=== PATIENT | male | born 1985 | race Caucasian/White ===

== ENCOUNTER 2018-03-03 18:06 | Emergency (ER) | payer SELFPAY ==
[2018-03-03 19:24] LABS: Absolute Lymphocytes (CBC) 2.2 K/uL (0.7-4.9); Absolute Monocytes 0.5 K/uL (0.1-1.3); Absolute Neutrophil 7.3 K/uL (1.8-8.0); Basophils % 0.6 % (0-1.3); Eosinophils % 3.5 % (0-4.4); Hematocrit 47.5 % (39.6-49.0); Lymphocytes % 20.7 % (15.3-44.8); MCV 84.1 fL (80-100); MPV 8.8 fL (7.6-11.3); Monocytes % 4.6 % (3.3-12.3); RBC Red Blood Cell Count 5.65 M/uL (4.33-5.43)
[2018-03-03 19:34] LABS: Albumin 4.1 g/dL (3.4-5.0); Bilirubin Total 0.5 mg/dL (0.2-1.0); Potassium 3.9 mmol/L (3.5-5.1); Protein, Total 8.3 g/dL (6.4-8.2)
[2018-03-03] MEDS ORDERED: KETOROLAC 30 MG/ML INJ ONE ×2 (19:48→21:15)
[2018-03-03] MEDS ORDERED: TRAMADOL HCL 50 MG TAB ONE (19:51)
--- NOTE | 2018-03-03 20:26 | RAD REPORT ---
EXAM DESCRIPTION: CT - Head Brain Wo Cont - 03/03/2018 8:16 pm CLINICAL HISTORY: DIZZINESS Headache COMPARISON: Facial Bones W Con Mpr dated 03/03/2018; HEAD BRAIN W O CONTRAST dated 03/21/2008 TECHNIQUE: All CT scans are performed using dose optimization technique as appropriate and may inclu de automated exposure control or mA/KV adjustment according to patient size. FINDINGS: No intracranial hemorrhage, hydrocephalus or extra-axial fluid collection.No areas of brai n edema or evidence of midline shift. Fluid is present in the right mastoid air cell the paranasal sinuses mastoids are otherwise clear. Th e calvarium is intact. IMPRESSION: No acute intracranial abnormality. Right mastoid effusion.
--- NOTE | 2018-03-03 20:31 | RAD REPORT ---
EXAM DESCRIPTION: CT - CTFBWCON CLINICAL HISTORY: right sided jaw swelling COMPARISON: HEAD BRAIN W O CONTRAST dated 03/21/2008; HEAD BRAIN W O CONTRAST dated 12/29/2003 TECHNIQUE: Axial 2 mm thick images of the face with contrast were obtained with sagittal and coronal reconstruction images. All CT scans are performed using dose optimization technique as appropriate and may include automated exposure control or mA/KV adjustment according to patient size. FINDINGS: No acute facial bone fracture is seen.The mandible is intact. The globes and orbital contents are grossly unremarkable.Moderate fluid is seen in the right mastoid air cell. The paranasal sinuses and mastoids are otherwise clear. No areas of pathologic enhancement are seen. A few mildly prominent level II lymph nodes are present in the neck. IMPRESSION: Right mastoid effusion is present.Suggest clinical correlation for possible mastoiditis.
[2018-03-03] MEDS ORDERED: FENTANYL CITR 100 MCG/2 ML ONE (20:43)
--- NOTE | 2018-03-03 21:00 | EDPHYS ---
Physician Documentation [facility] Name: Dhiraj Peguero Age: 33 yrs Sex: Male : 1985 Arrival Date: 03/03/2018 Time: 18:08 Bed 15 Private MD: ED Physician Daryl Chew HPI: 03/03 18:57 This 33 yrs old Male presents to ER via Ambulatory with complaints of Ear jmm Pain, Facial Swelling. 18:57 The patient presents with pain. Onset: The symptoms/episode began/occurred gradually, 3 jmm week(s) ago. Modifying factors: The symptoms are alleviated by nothing, the symptoms are aggravated by nothing. Associated signs and symptoms: Pertinent positives: fever, vertigo. This is a 33 year old female with a history of sleep apnea that presents to the ED with right sided earache for the past 3 weeks. Evaluated at [facility] and diagnosed with OM and prescribed amoxicillin which has not resolved symptoms. Patient also complains of swelling to his upper back. . Historical: - Allergies: 18:26 Phenergan; la1 - Home Meds: 18:25 None [Active]; rb1 - PMHx: 18:26 Kidney stones; Sleep Apnea; la1 - PSHx: 18:25 Appendectomy; Cholecystectomy; rb1 - Immunization history:: Adult Immunizations up to date. - Social history:: Smoking status: Patient uses tobacco products, smokes one pack cigarettes per day. - Ebola Screening: : No symptoms or risks identified at this time. ROS: 18:57 Eyes: Negative for injury, pain, redness, and discharge. jmm 18:57 Neck: Negative for injury, pain, and swelling, Cardiovascular: Negative for chest pain, palpitations, and edema, Respiratory: Negative for shortness of breath, cough, wheezing, and pleuritic chest pain, Abdomen/GI: Negative for abdominal pain, nausea, vomiting, diarrhea, and constipation. 18:57 Constitutional: Positive for fever. 18:57 ENT: Positive for ear pain. 18:57 Neuro: Positive for dizziness. 18:57 All other systems are negative. Exam: 18:57 Constitutional: This is a well developed, well nourished patient who is awake, alert, jmm and in no acute distress. Eyes: EOMI, no conjunctival erythema appreciated ENT: Moist Mucus Membranes 18:57 Cardiovascular: Regular rate and rhythm. No edema appreciated Respiratory: Normal respirations, no respiratory distress appreciated Abdomen/GI: Non distended, soft Back: Normal ROM 18:57 Head/face: swelling is appreciated below the right ear. 18:57 ENT: TM's: erythema, that is moderate, on the right. 18:57 Skin: a large soft mass noted to the right scapular region, non indurated and non tender to palpation. 18:57 Neuro: Orientation: is normal, Mentation: is normal, Memory: is normal. 18:57 Psych: Behavior/mood is pleasant, cooperative. Vital Signs: 18:26 BP 158 / 89; Pulse 86; Resp 16; Temp 98.0; Pulse Ox 98% on R/A; Weight 170.1 kg; Height la1 6 ft. 4 in. (193.04 cm); 19:30 BP 149 / 91; Pulse 82; Resp 16; Pulse Ox 95% on R/A; Pain 6/10; jb4 20:30 BP 153 / 91; Pulse 77; Resp 16; Pulse Ox 99% on R/A; jb4 21:21 BP 139 / 73; Pulse 76; Resp 16; Pulse Ox 100% ; jb4 18:26 Body Mass Index 45.65 (170.10 kg, 193.04 cm) la1 MDM: 18:54 Patient medically screened. [facility] 20:57 Data reviewed: vital signs, nurses notes. Counseling: I had a detailed discussion with isidro the patient and/or guardian regarding: the historical points, exam findings, and any diagnostic results supporting the discharge/admit diagnosis, radiology results, the need for outpatient follow up, to return to the emergency department if symptoms worsen or persist or if there are any questions or concerns that arise at home. ED course: I discussed the patient with Dr. davis who will see the patient in clinic on Wednesday. Recommends close follow up with PCP or return to the ED for reevaluation. This was discussed with the patient and family whom agree with the plan of care. . 03/03 18:55 Order name: CBC with Diff; Complete Time: 19:35 [facility] 03/03 18:55 Order name: CMP; Complete Time: 19:35 [facility] 03/03 18:55 Order name: Creatinine for Radiology; Complete Time: 19:35 [facility] 03/03 18:55 Order name: CT Head Brain wo Cont; Complete Time: 20:35 [facility] 03/03 18:55 Order name: Facial Bones W/ Con \T\ MPR CT; Complete Time: 20:35 [facility] 03/03 18:55 Order name: Saline Lock; Complete Time: 19:04 [facility] Administered Medications: 19:45 Drug: traMADol 50 mg Route: PO; jb4 20:42 Follow up: Response: No adverse reaction; Pain is unchanged, physician notified jb4 19:49 Not Given (Physician Discretion): Zofran 4 mg IVP once; over 2 minutes jb4 19:55 Not Given (Patient Refused): morphine 4 mg IVP once jb4 20:42 Drug: fentaNYL (PF) 50 mcg Route: IVP; Site: right antecubital; jb4 21:02 Follow up: Response: No adverse reaction; Pain is decreased jb4 20:59 Drug: Rocephin - (cefTRIAXone) 1 grams {Note: given IVP per pharmacy protocol..} Route: jb4 IVPB; Infused Over: 30 mins; Site: right antecubital; 21:00 Follow up: Response: No adverse reaction; IV Status: Completed infusion jb4 21:16 Drug: TORadol 30 mg Route: IVP; Site: right antecubital; jb4 21:17 Follow up: Response: No adverse reaction; Pain is decreased jb4 Disposition: 03/03/18 20:58 Discharged to Home. Impression: Mastoiditis and related conditions. - Condition is Stable. - Discharge Instructions: Mastoiditis, Pediatric. - Prescriptions for Augmentin 875- 125 mg Oral Tablet - take 1 tablet by ORAL route every 12 hours for 10 days; 20 tablet. Tylenol- Codeine #3 300-30 mg Oral Tablet - take 1 tablet by ORAL route every 6 hours As needed; 12 tablet. - Medication Reconciliation Form, Thank You Letter, Antibiotic Education, Prescription Opioid Use, Work release form form. - Follow up: Rozina Davis MD; When: 2 - 3 days; Reason: Recheck today's complaints, Continuance of care, Re-evaluation by your physician. Addendum: 03/07/2018 07:02 Co-signature as Attending Physician, Daryl Chew MD I agree with the assessment and r n plan of care. Signatures: Dispatcher [employer] EDYannick Loza PA PA jmm Nieto, Roman MD MD rn Attema, Alex, RN RN la1 Vivian Perez, RN RN rb1 Priyank Graves RN RN jb4 Corrections: (The following items were deleted from the chart) 03/03 21:23 20:58 03/03/2018 20:58 Discharged to Home. Impression: Mastoiditis and related jb4 conditions. Condition is Stable. Forms are Medication Reconciliation Form, Thank You Letter, Antibiotic Education, Prescription Opioid Use. Follow up: Rozina Davis; When: 2 - 3 days; Reason: Recheck today's complaints, Continuance of care, Re-evaluation by your physician. isidro
--- NOTE | 2018-03-03 21:00 | ER ---
Nurse's Notes [facility] Name: Dhiraj Peguero Age: 33 yrs Sex: Male : 1985 Arrival Date: 03/03/2018 Time: 18:08 Bed 15 Private MD: Diagnosis: Mastoiditis and related conditions Presentation: 03/03 18:25 Presenting complaint: Patient states: I have been having ear problems with my right ear la1 for about 3 months, seen in the ER about 3 weeks ago in [place] and given ear drops and oral abxs that did not help. Transition of care: patient was not received from another setting of care. Onset of symptoms was March 03, 2018. Risk Assessment: Do you want to hurt yourself or someone else? Patient reports no desire to harm self or others. Initial Sepsis Screen: Does the patient meet any 2 criteria? No. Patient's initial sepsis screen is negative. Does the patient have a suspected source of infection? No. Patient's initial sepsis screen is negative. Care prior to arrival: None. 18:25 Method Of Arrival: Ambulatory la1 18:25 Acuity: [place]AN [place]IE[place] 4 la1 Historical: - Allergies: 18:26 Phenergan; la1 - Home Meds: 18:25 None [Active]; rb1 - PMHx: 18:26 Kidney stones; Sleep Apnea; la1 - PSHx: 18:25 Appendectomy; Cholecystectomy; rb1 - Immunization history:: Adult Immunizations up to date. - Social history:: Smoking status: Patient uses tobacco products, smokes one pack cigarettes per day. - Ebola Screening: : No symptoms or risks identified at this time. Screenin:25 Abuse screen: Denies threats or abuse. Nutritional screening: No deficits noted. rb1 Tuberculosis screening: No symptoms or risk factors identified. Fall Risk None identified. Assessment: 18:25 General: Appears in no apparent distress. comfortable, obese, Behavior is calm, rb1 cooperative, Denies fever. Pain: Complains of pain in right ear Pain radiates to upper and lower jaw and neck Pain currently is 7 out of 10 on a pain scale. Pain began x 3 months. Neuro: Level of Consciousness is awake, alert, obeys commands, Oriented to person, place, time, situation, Reports dizziness. Cardiovascular: Capillary refill < 3 seconds is brisk in bilateral fingers. Respiratory: Airway is patent Respiratory effort is even, unlabored, Respiratory pattern is regular, symmetrical. GI: Reports diarrhea, nausea. : No signs and/or symptoms were reported regarding the genitourinary system. EENT: Ear canal right ear pain. Derm: Skin is dry, Skin is normal, Skin temperature is warm. Musculoskeletal: Range of motion: intact in all extremities. 19:30 Reassessment: Patient appears in no apparent distress at this time. Patient and/or jb4 family updated on plan of care and expected duration. Pain level reassessed. Patient is alert, oriented x 3, equal unlabored respirations, skin warm/dry/pink. Pt complaining of pain, Provider notified, See Mar for orders. Pt given a Heat pack. 19:30 Cardiovascular: Patient's skin is warm and dry. Respiratory: Airway is patent jb4 Respiratory effort is even, unlabored, Respiratory pattern is regular, symmetrical. 20:30 Reassessment: Patient appears in no apparent distress at this time. Patient and/or jb4 family updated on plan of care and expected duration. Pain level reassessed. Patient is alert, oriented x 3, equal unlabored respirations, skin warm/dry/pink. 21:13 Reassessment: Patient appears in no apparent distress at this time. Patient and/or jb4 family updated on plan of care and expected duration. Pain level reassessed. Patient is alert, oriented x 3, equal unlabored respirations, skin warm/dry/pink. Vital Signs: 18:26 BP 158 / 89; Pulse 86; Resp 16; Temp 98.0; Pulse Ox 98% on R/A; Weight 170.1 kg; Height la1 6 ft. 4 in. (193.04 cm); 19:30 BP 149 / 91; Pulse 82; Resp 16; Pulse Ox 95% on R/A; Pain 6/10; jb4 20:30 BP 153 / 91; Pulse 77; Resp 16; Pulse Ox 99% on R/A; jb4 21:21 BP 139 / 73; Pulse 76; Resp 16; Pulse Ox 100% ; jb4 18:26 Body Mass Index 45.65 (170.10 kg, 193.04 cm) la1 ED Course: 18:08 Patient arrived in ED. as 18:25 Patient has correct armband on for positive identification. Bed in low position. Call rb1 light in reach. Side rails up X 1. Pulse ox on. NIBP on. 18:26 Triage completed. la1 18:26 Arm band placed on left wrist. la1 18:28 Vivian Perez, VAHID is Primary Nurse. rb1 18:39 Yannick Sneed PA is PHCP. jmm 18:39 Daryl Chew MD is Attending Physician. [facility] 19:00 Report given to VAHID [place]. rb1 19:06 Radiology exam delayed due to lab results not completed at this time. (BUN/Creatinine). vm2 19:07 Inserted saline lock: 20 gauge in right antecubital area, using aseptic technique. ds4 Blood collected. 20:16 CT Head Brain wo Cont In Process Unspecified. EDMS 20:16 Facial Bones W/ Con \T\ MPR CT In Process Unspecified. EDMS 20:16 CT completed. Patient tolerated procedure well. Patient moved to CT via wheelchair. vm2 Patient moved back from CT. 20:58 Rozina More MD is Referral Physician. [facility] 21:22 No provider procedures requiring assistance completed. IV discontinued, intact, jb4 bleeding controlled. Administered Medications: 19:45 Drug: traMADol 50 mg Route: PO; jb4 20:42 Follow up: Response: No adverse reaction; Pain is unchanged, physician notified jb4 19:49 Not Given (Physician Discretion): Zofran 4 mg IVP once; over 2 minutes jb4 19:55 Not Given (Patient Refused): morphine 4 mg IVP once jb4 20:42 Drug: fentaNYL (PF) 50 mcg Route: IVP; Site: right antecubital; jb4 21:02 Follow up: Response: No adverse reaction; Pain is decreased jb4 20:59 Drug: Rocephin - (cefTRIAXone) 1 grams {Note: given IVP per pharmacy protocol..} Route: jb4 IVPB; Infused Over: 30 mins; Site: right antecubital; 21:00 Follow up: Response: No adverse reaction; IV Status: Completed infusion jb4 21:16 Drug: TORadol 30 mg Route: IVP; Site: right antecubital; jb4 21:17 Follow up: Response: No adverse reaction; Pain is decreased jb4 Outcome: 20:58 Discharge ordered by . [facility] 21:22 Discharged to home ambulatory. jb4 21:22 Condition: stable 21:22 Discharge instructions given to patient, family, Instructed on discharge instructions, follow up and referral plans. medication usage, Demonstrated understanding of instructions, follow-up care, medications, Prescriptions given X 2. 21:23 Patient left the ED. jb4 Signatures: Dispatcher [employer] EDMS Yannick Sneed PA PA jmm Martinez, Amelia as Swanson, Donovan ds4 Alex Damon RN RN la1 Vivian Perez RN RN rb1 Priyank Graves RN RN jb4 Domonique Christine [facility]
[2018-03-03] MEDS ORDERED: CEFTRIAXONE/SWI 1gm 1 GM/10 ML SYR ONE (21:02)
[2018-03-03 21:41] VITALS: TEMP 98
[2018-03-03 21:45] VITALS: BP 139/73; O2SAT 100
== END 2018-03-03 21:23 | disposition home or self-care (01) ==
LOC: ER 18:06
DX: H70.891 Other mastoiditis and related conditions, right ear (principal); F17.210 Nicotine dependence, cigarettes, uncomplicated; Z88.8 Allergy status to other drugs, medicaments and biological substances
CPT/HCPCS: 36415; 70450; 70487; 76377; 80053; 85025; 96374; 96375; 99284; J0696; J3010; Q9967

== ENCOUNTER 2018-03-19 03:51 | Emergency (ER) | payer SELFPAY ==
[2018-03-19] MEDS ORDERED: ONDANSETRON 4 MG/2 ML VIAL ONE (04:57)
[2018-03-19] MEDS ORDERED: FENTANYL CITR 100 MCG/2 ML ONE (04:57)
[2018-03-19] MEDS ORDERED: CLINDAMYCIN 900MG/D5W 900 MG/50 ML IVPB IV ONE (04:58)
[2018-03-19] MEDS ORDERED: NA CHLORIDE 0.9% 1,000 ML ONE (04:58)
[2018-03-19] MEDS ORDERED: NA CHLORIDE 0.9% 500 ML ONE (04:58)
[2018-03-19 05:14] LABS: Absolute Lymphocytes (CBC) 2.7 K/uL (0.7-4.9); Absolute Monocytes 0.7 K/uL (0.1-1.3); Absolute Neutrophil 4.8 K/uL (1.8-8.0); Basophils % 0.6 % (0-1.3); Eosinophils % 4.9 % (0-4.4); Hematocrit 43.7 % (39.6-49.0); MPV 8.8 fL (7.6-11.3); Monocytes % 8.5 % (3.3-12.3)
[2018-03-19 05:17] LABS: Protime INR 0.97
[2018-03-19 06:00] LABS: ALT/SGPT 75 U/L (12-78); AST/SGOT 27 U/L (15-37); Albumin 3.8 g/dL (3.4-5.0); Alkaline Phosphatase 66 U/L (45-117); BUN Blood Urea Nitrogen 14 mg/dL (7-18); Bicarbonate 26 mmol/L (21-32); Bilirubin Direct 0.1 mg/dL (0-0.2); Bilirubin Total 0.3 mg/dL (0.2-1.0); Glucose Level 83 mg/dL (74-106); Lipase 108 U/L (73-393); Magnesium 2.3 mg/dL (1.8-2.4); NT PRO-BNP 14 pg/mL (<125); Potassium 3.8 mmol/L (3.5-5.1); Protein, Total 7.6 g/dL (6.4-8.2); Sodium Level 137 mmol/L (136-145); Troponin (Emerg Dept Use Only) < 0.02 ng/mL (0.0-0.045)
--- NOTE | 2018-03-19 06:21 | EDPHYS ---
Physician Documentation [facility] Name: Dhiraj Peguero Age: 33 yrs Sex: Male : 1985 Arrival Date: 03/19/2018 Time: 03:54 Bed 17 Private MD: ED Physician Yonathan Ruth HPI: 03/19 04:39 This 33 yrs old Male presents to ER via EMS with complaints of Near Syncope, sameer Toothache. 04:39 The patient has experienced near-syncope, almost passed out, felt dizzy. Onset: The sameer symptoms/episode began/occurred this morning. Duration: This was a single episode. Associated injury: Head/face:. Associated signs and symptoms: Pertinent positives: weakness. The patient has not experienced similar symptoms in the past. Historical: - Allergies: 04:44 Phenergan; ea - Home Meds: 04:44 Ibuprofen Oral [Active]; ea - PMHx: 04:44 Kidney stones; Sleep Apnea; ea - PSHx: 04:44 Appendectomy; Cholecystectomy; ea - Social history:: Smoking status: Patient uses tobacco products, smokes one pack cigarettes per day. - Ebola Screening: : No symptoms or risks identified at this time. - Family history:: not pertinent. ROS: 04:36 Constitutional: Negative for fever, chills, and weight loss, Eyes: Negative for injury, sameer pain, redness, and discharge, Neck: Negative for injury, pain, and swelling, Cardiovascular: Negative for chest pain, palpitations, and edema, Respiratory: Negative for shortness of breath, cough, wheezing, and pleuritic chest pain, Abdomen/GI: Negative for abdominal pain, nausea, vomiting, diarrhea, and constipation, Back: Negative for injury and pain, : Negative for injury, bleeding, discharge, and swelling, MS/Extremity: Negative for injury and deformity, Skin: Negative for injury, rash, and discoloration, Neuro: Negative for headache, weakness, numbness, tingling, and seizure, Psych: Negative for depression, anxiety, suicide ideation, homicidal ideation, and hallucinations, Allergy/Immunology: Negative for hives, rash, and allergies, Endocrine: Negative for neck swelling, polydipsia, polyuria, polyphagia, and marked weight changes, Hematologic/Lymphatic: Negative for swollen nodes, abnormal bleeding, and unusual bruising. 04:36 ENT: Positive for dental pain. 04:36 Neuro: Positive for near syncope. Exam: 04:36 Constitutional: This is a well developed, well nourished patient who is awake, alert, sameer and in no acute distress. Head/Face: Normocephalic, atraumatic. Eyes: Pupils equal round and reactive to light, extra-ocular motions intact. Lids and lashes normal. Conjunctiva and sclera are non-icteric and not injected. Cornea within normal limits. Periorbital areas with no swelling, redness, or edema. Neck: Trachea midline, no thyromegaly or masses palpated, and no cervical lymphadenopathy. Supple, full range of motion without nuchal rigidity, or vertebral point tenderness. No Meningismus. Chest/axilla: Normal chest wall appearance and motion. Nontender with no deformity. No lesions are appreciated. Cardiovascular: Regular rate and rhythm with a normal S1 and S2. No gallops, murmurs, or rubs. Normal PMI, no JVD. No pulse deficits. Respiratory: Lungs have equal breath sounds bilaterally, clear to auscultation and percussion. No rales, rhonchi or wheezes noted. No increased work of breathing, no retractions or nasal flaring. Abdomen/GI: Soft, non-tender, with normal bowel sounds. No distension or tympany. No guarding or rebound. No evidence of tenderness throughout. Back: No spinal tenderness. No costovertebral tenderness. Full range of motion. Male : Normal genitalia with no discharge or lesions. Skin: Warm, dry with normal turgor. Normal color with no rashes, no lesions, and no evidence of cellulitis. MS/ Extremity: Pulses equal, no cyanosis. Neurovascular intact. Full, normal range of motion. Neuro: Awake and alert, GCS 15, oriented to person, place, time, and situation. Cranial nerves II-XII grossly intact. Motor strength 5/5 in all extremities. Sensory grossly intact. Cerebellar exam normal. Normal gait. Psych: Awake, alert, with orientation to person, place and time. Behavior, mood, and affect are within normal limits. 04:36 ENT: Mouth: Oral mucosa: normal, pink and intact, moist, Gums: noted to have cellulitis, reddened, Tongue: is normal, abscess, is not appreciated, drooling, that is mild. 04:36 Cardiovascular: Rate: normal, Rhythm: regular, Pulses: Pulses are 4+ in bilateral radial, brachial, femoral, popliteal, posterior tibial and and dorsalis pedis arteries.. Heart sounds: normal, normal S1and S2, no S3 or S4, no murmur, no rub, no gallop, Edema: 2+ edema to level of left midcalf and right midcalf, JVD: is not appreciated. Vital Signs: 04:04 BP 167 / 93; Pulse 67; Resp 19; Temp 97.8; Pulse Ox 99% on R/A; Weight 172.37 kg; ea Height 6 ft. 4 in. (193.04 cm); Pain 10/10; 05:55 BP 158 / 62; Pulse 78; Resp 18; Pulse Ox 99% ; ea 06:55 BP 148 / 67; Pulse 70; Resp 18; Temp 97.7; Pulse Ox 99% ; ea 04:04 Body Mass Index 46.25 (172.37 kg, 193.04 cm) ea MDM: 03:59 Patient medically screened. sameer 04:39 Data reviewed: vital signs, nurses notes, lab test result(s), EKG, radiologic studies, sameer plain films. 03/19 04:28 Order name: Basic Metabolic Panel 03/19 04:28 Order name: CBC with Diff ea 03/19 04:28 Order name: LFT's ea 03/19 04:28 Order name: Magnesium ea 03/19 04:28 Order name: NT PRO-BNP; Complete Time: 06:20 ea 03/19 04:28 Order name: PT-INR; Complete Time: 05:53 03/19 04:28 Order name: Troponin (emerg Dept Use Only); Complete Time: 06:20 ea 03/19 04:28 Order name: XRAY Chest (1 view) ea 03/19 04:28 Order name: Basic Metabolic Panel; Complete Time: 06:20 EDMS 03/19 04:28 Order name: CBC with Automated Diff; Complete Time: 05:53 EDMS 03/19 04:28 Order name: Liver (Hepatic) Function; Complete Time: 06:20 EDMS 03/19 04:28 Order name: Magnesium; Complete Time: 06:20 EDMS 03/19 05:14 Order name: Lipase; Complete Time: 06:20 EDMS 03/19 04:28 Order name: EKG; Complete Time: 04:29 ea 03/19 04:28 Order name: Cardiac monitoring; Complete Time: 05:30 ea 03/19 04:28 Order name: EKG - Nurse/Tech; Complete Time: 05:30 ea 03/19 04:28 Order name: IV Saline Lock; Complete Time: 05:30 ea 03/19 04:28 Order name: Labs collected and sent; Complete Time: 05:30 ea 03/19 04:28 Order name: O2 Per Protocol; Complete Time: 05:30 ea 03/19 04:28 Order name: O2 Sat Monitoring; Complete Time: 05:30 ea Administered Medications: 05:00 Drug: Zofran 4 mg Route: IVP; Site: right antecubital; ea 05:00 Follow up: Response: No adverse reaction ea 05:30 Follow up: Response: No adverse reaction ea 05:01 Drug: NS 0.9% 500 ml Route: IV; Rate: bolus; Site: right antecubital; ea 05:30 Follow up: IV Status: Completed infusion; IV Intake: 500ml ea 05:01 Drug: Clindamycin 900 mg Route: IVPB; Infused Over: 30 mins; Site: right antecubital; ea 05:30 Follow up: Response: No adverse reaction; IV Status: Completed infusion ea 05:01 Drug: NS 0.9% 1000 ml Route: IV; Rate: 125 ml/hr; Site: right antecubital; ea 07:22 Follow up: Response: No adverse reaction; IV Status: Completed infusion ea 05:01 Drug: fentaNYL (PF) 50 mcg Route: IVP; Site: right antecubital; ea 05:17 Follow up: Response: No adverse reaction; Pain is unchanged, physician notified ea 05:18 Drug: fentaNYL (PF) 50 mcg Route: IVP; Site: right antecubital; ea 05:50 Follow up: Response: No adverse reaction; Pain is decreased ea Disposition: 03/19/18 06:20 Discharged to Home. Impression: Dental caries, Syncope and collapse - near, Obesity, unspecified, Essential (primary) hypertension. - Condition is Stable. - Discharge Instructions: Dental Abscess, Dental Pain, Hypertension, Near-Syncope, Wgwz-ao-Mywt, Hypertension, Lwju-bw-Kvtk, Dental Pain, Tsfc-nu-Hkxk, How to Take Your Blood Pressure, Rnie-tu-Cczl, Aspirin and Your Heart, Managing Your Hypertension. - Prescriptions for Clindamycin HCl 300 mg Oral Capsule - take 1 capsule by ORAL route every 6 hours for 10 days; 40 capsule. Tylenol- Codeine #3 300-30 mg Oral Tablet - take 2 tablets by ORAL route every 6 hours As needed; 26 tablet. - Medication Reconciliation Form, Thank You Letter, Antibiotic Education, Prescription Opioid Use, Work release form form. - Follow up: Private Physician; When: 2 - 3 days; Reason: Recheck today's complaints, Continuance of care, Re-evaluation by your physician. Follow up: Saturnino Botello; When: 2 - 3 days; Reason: Recheck today's complaints, Re-evaluation by your physician. Follow up: José Luis Garduno; When: 2 - 3 days; Reason: Recheck today's complaints, Continuance of care, Re-evaluation by your physician. - Problem is new. - Symptoms have improved. Signatures: Dispatcher [employer] [facility] Yonathan Ruth MD MD cha Antunez, Elena RN RN ea Corrections: (The following items were deleted from the chart) 05:14 04:37 LIPASE+C.LAB.BRZ ordered. [facility] 07:24 06:20 03/19/2018 06:20 Discharged to Home. Impression: Dental caries; Syncope and ea collapse - near; Obesity, unspecified; Essential (primary) hypertension. Condition is Stable. Discharge Instructions: Dental Abscess, Dental Pain, Hypertension, Near-Syncope, Kodc-as-Txnz, Hypertension, Gity-ux-Ovvt, Dental Pain, Uhxx-ho-Epit, How to Take Your Blood Pressure, Rezp-gb-Xsvn, Aspirin and Your Heart, Managing Your Hypertension. Prescriptions for Clindamycin HCl 300 mg Oral Capsule - take 1 capsule by ORAL route every 6 hours for 10 days; 40 capsule, Tylenol-Codeine #3 300-30 mg Oral Tablet - take 2 tablets by ORAL route every 6 hours As needed; 26 tablet. and Forms are Medication Reconciliation Form, Thank You Letter, Antibiotic Education, Prescription Opioid Use. Follow up: Private Physician; When: 2 - 3 days; Reason: Recheck today's complaints, Continuance of care, Re-evaluation by your physician. Follow up: Saturnino Botello; When: 2 - 3 days; Reason: Recheck today's complaints, Re-evaluation by your physician. Follow up: José Luis Garduno; When: 2 - 3 days; Reason: Recheck today's complaints, Continuance of care, Re-evaluation by your physician. Problem is new. Symptoms have improved. sameer
--- NOTE | 2018-03-19 06:21 | ER ---
Nurse's Notes [facility] Name: Dhiraj Peguero Age: 33 yrs Sex: Male : 1985 Arrival Date: 03/19/2018 Time: 03:54 Bed 17 Private MD: Diagnosis: Dental caries;Syncope and collapse-near;Obesity, unspecified;Essential (primary) hypertension Presentation: 03/19 03:56 Presenting complaint: EMS states: Patient complaining of severe jaw and tooth pain, pt ea reports he went to the dentists a few days ago and found out he had upper and lower tooth abscess of right wisdom teeth. EMS reported pt had near syncopal episodes and had a blood pressure of 220/125. Transition of care: patient was not received from another setting of care. Onset of symptoms was March 19, 2018. Risk Assessment: Do you want to hurt yourself or someone else? Patient reports no desire to harm self or others. Initial Sepsis Screen: Does the patient meet any 2 criteria? No. Patient's initial sepsis screen is negative. Does the patient have a suspected source of infection? No. Patient's initial sepsis screen is negative. Care prior to arrival: None. 03:56 Method Of Arrival: EMS ea 03:56 Acuity: JUAN DIEGO 3 ea Triage Assessment: 04:05 General: Appears uncomfortable, Behavior is calm, cooperative, appropriate for age. ea Pain: Complains of pain in right ear, right jaw. EENT:. EENT: Reports pain in right jaw. Neuro: Level of Consciousness is awake, alert, obeys commands, Oriented to person, place, time, situation. Cardiovascular: Patient's skin is warm and dry. Respiratory: Airway is patent Respiratory effort is even, unlabored, Respiratory pattern is regular, symmetrical. Derm: Skin is pink, warm \T\ dry. Historical: - Allergies: 04:44 Phenergan; ea - Home Meds: 04:44 Ibuprofen Oral [Active]; ea - PMHx: 04:44 Kidney stones; Sleep Apnea; ea - PSHx: 04:44 Appendectomy; Cholecystectomy; ea - Social history:: Smoking status: Patient uses tobacco products, smokes one pack cigarettes per day. - Ebola Screening: : No symptoms or risks identified at this time. - Family history:: not pertinent. Screenin:00 Abuse screen: Denies threats or abuse. Nutritional screening: No deficits noted. ea Tuberculosis screening: No symptoms or risk factors identified. Fall Risk None identified. Assessment: 04:05 Reassessment: see triage assessment. ea 05:54 Reassessment: Patient and/or family updated on plan of care and expected duration. Pain ea level reassessed. Patient is alert, oriented x 3, equal unlabored respirations, skin warm/dry/pink. 06:00 Reassessment: Patient and/or family updated on plan of care and expected duration. Pain ea level reassessed. Patient is alert, oriented x 3, equal unlabored respirations, skin warm/dry/pink. 07:17 Reassessment: Patient and/or family updated on plan of care and expected duration. Pain ea level reassessed. Patient is alert, oriented x 3, equal unlabored respirations, skin warm/dry/pink. Discharge instruction given to patient, verbalized the understanding of instruction. Vital Signs: 04:04 BP 167 / 93; Pulse 67; Resp 19; Temp 97.8; Pulse Ox 99% on R/A; Weight 172.37 kg; ea Height 6 ft. 4 in. (193.04 cm); Pain 10/10; 05:55 BP 158 / 62; Pulse 78; Resp 18; Pulse Ox 99% ; ea 06:55 BP 148 / 67; Pulse 70; Resp 18; Temp 97.7; Pulse Ox 99% ; ea 04:04 Body Mass Index 46.25 (172.37 kg, 193.04 cm) ea ED Course: 03:54 Patient arrived in ED. bb 03:56 Sandra Smith, RN is Primary Nurse. ea 03:59 Yonathan Ruth MD is Attending Physician. sameer 03:59 Triage completed. ea 04:00 Patient has correct armband on for positive identification. Bed in low position. Call ea light in reach. Side rails up X2. 04:00 Arm band placed on right wrist. Patient placed in an exam room, on a stretcher, on ea surveillance monitor, on pulse oximetry. 04:56 X-ray completed. Portable x-ray completed in exam room. Patient tolerated procedure sg4 well. 04:57 XRAY Chest (1 view) In Process Unspecified. EDMS 06:20 Saturnino Botello MD is Referral Physician. sameer 06:20 José Luis Garduno DDS is Referral Physician. sameer 07:18 No provider procedures requiring assistance completed. IV discontinued, intact, ea bleeding controlled, No redness/swelling at site. Pressure dressing applied. Administered Medications: 05:00 Drug: Zofran 4 mg Route: IVP; Site: right antecubital; ea 05:00 Follow up: Response: No adverse reaction ea 05:30 Follow up: Response: No adverse reaction ea 05:01 Drug: NS 0.9% 500 ml Route: IV; Rate: bolus; Site: right antecubital; ea 05:30 Follow up: IV Status: Completed infusion; IV Intake: 500ml ea 05:01 Drug: Clindamycin 900 mg Route: IVPB; Infused Over: 30 mins; Site: right antecubital; ea 05:30 Follow up: Response: No adverse reaction; IV Status: Completed infusion ea 05:01 Drug: NS 0.9% 1000 ml Route: IV; Rate: 125 ml/hr; Site: right antecubital; ea 07:22 Follow up: Response: No adverse reaction; IV Status: Completed infusion ea 05:01 Drug: fentaNYL (PF) 50 mcg Route: IVP; Site: right antecubital; ea 05:17 Follow up: Response: No adverse reaction; Pain is unchanged, physician notified ea 05:18 Drug: fentaNYL (PF) 50 mcg Route: IVP; Site: right antecubital; ea 05:50 Follow up: Response: No adverse reaction; Pain is decreased ea Intake: 05:30 IV: 500ml; Total: 500ml. ea Outcome: 06:20 Discharge ordered by . sameer 07:18 Condition: good nikky 07:18 Discharge instructions given to patient, Instructed on discharge instructions, follow up and referral plans. medication usage, Demonstrated understanding of instructions, follow-up care, medications, Prescriptions given X 2. 07:24 Patient left the ED. ea Signatures: Dispatcher [employer] EDYonathan Nickerson MD MD cha Ballard, Brenda, RN RN Sandra Clemente RN RN ea Garcia, Susana sg4
[2018-03-19 07:40] VITALS: O2SAT 99
[2018-03-19 07:44] VITALS: BP 148/67; TEMP 97.7
--- NOTE | 2018-03-19 10:29 | RAD REPORT ---
EXAM DESCRIPTION: Gerry Single View03/19/2018 6:53 am CLINICAL HISTORY: Chest pain COMPARISON: 2009 FINDINGS: The lungs appear clear of acute infiltrate. The heart is borderline enlarged IMPRESSION: No acute abnormalities displayed
--- NOTE | 2018-03-19 16:08 | EKG ---
Test Date: 2018-03-19 Test Time: 04:13:27 Buildings [employer]ounds Director: AYO MEASUREMENT RESULTS: Intervals: Rate: 64 [place]: 186 QRSD: 80 QT: 378 QTc: 389 [place]: P: 46 [place]: 186 QRS: 64 T: 32 INTERPRETIVE STATEMENTS: Normal sinus rhythm Normal ECG Compared to ECG 07/27/1997 14:36:00 No significant changes Electronically Signed On 03-19-18 16:07:59 [employer]CH[employer] by Lm Clark
== END 2018-03-19 07:24 | disposition home or self-care (01) ==
LOC: ER 03:51
DX: K02.9 Dental caries, unspecified (principal); R55 Syncope and collapse; I10 Essential (primary) hypertension; E66.9 Obesity, unspecified; Z68.42 Body mass index [BMI] 45.0-49.9, adult; F17.210 Nicotine dependence, cigarettes, uncomplicated
CPT/HCPCS: 36415; 71045; 80048; 80076; 83690; 83735; 83880; 84484; 85025; 85610; 93005; 96361; 96365; 96375; 99284; J2405; J3010; J7030

== ENCOUNTER 2018-08-22 06:58 | Emergency (ER) | payer SELFPAY ==
--- OUTSIDE RECORDS SUMMARY | 2018-08-22 07:00 | XMS REPORT ---
:1985 [facility] Address [address] [place] [address] Dr. Atkinson[address] [place] [id number] Care Team Providers Name Role Phone Unavailable Unavailable Unavailable Problems This patient has no known problems. Allergies, Adverse Reactions, Alerts This patient has no known allergies or adverse reactions. Medications This patient has no known medications.
[2018-08-22] MEDS ORDERED: predniSONE 20 MG TAB ONE (07:40)
[2018-08-22] MEDS ORDERED: HYDROCODONE/CHLORPHEN 5 ML/OSYR ONE (07:40)
[2018-08-22] MEDS ORDERED: ALBUTEROL 2.5 MG/3 ML NEB SOL ONE (07:40)
[2018-08-22] MEDS ORDERED: IPRATROPIUM BROM 0.5MG/2.5ML ONE (07:40)
[2018-08-22 07:53] LABS: Absolute Lymphocytes (CBC) 1.3 K/uL (0.7-4.9); Absolute Monocytes 0.4 K/uL (0.1-1.3); Absolute Neutrophil 1.7 K/uL (1.8-8.0); Basophils % 0.4 % (0-1.3); Eosinophils % 6.4 % (0-4.4); Hematocrit 44.4 % (39.6-49.0); Lymphocytes % 34.5 % (15.3-44.8); MPV 8.6 fL (7.6-11.3); Monocytes % 11.8 % (3.3-12.3); RBC Red Blood Cell Count 5.19 M/uL (4.33-5.43)
--- NOTE | 2018-08-22 07:53 | EKG ---
Test Date: 2018-08-22 Test Time: 07:22:45 Restaurant Hostess: BAKARI MEASUREMENT RESULTS: Intervals: Rate: 83 MT: 162 QRSD: 84 QT: 358 QTc: 420 [place]: P: 39 MT: 162 QRS: 39 T: 35 INTERPRETIVE STATEMENTS: Normal sinus rhythm Normal ECG Compared to ECG 03/19/2018 04:13:27 No significant changes Electronically Signed On 08-22-18 07:52:17 CDT by Lm Clark
[2018-08-22 08:17] LABS: BUN Blood Urea Nitrogen 8 mg/dL (7-18); Bicarbonate 25 mmol/L (21-32); Glucose Level 94 mg/dL (74-106); Potassium 3.9 mmol/L (3.5-5.1); Sodium Level 138 mmol/L (136-145); Troponin (Emerg Dept Use Only) < 0.02 ng/mL (0.0-0.045)
[2018-08-22] MEDS ORDERED: ACETAMINOPHEN 500 MG TAB ONE (08:39)
--- NOTE | 2018-08-22 09:43 | RAD REPORT ---
EXAM DESCRIPTION: Gerry Rolle (2 Views)08/22/2018 8:01 am CLINICAL HISTORY: Cough COMPARISON: February 2018 FINDINGS: The lungs appear clear of acute infiltrate. The heart is normal size IMPRESSION: No acute abnormalities displayed
--- NOTE | 2018-08-22 09:44 | ER ---
Nurse's Notes [facility] Name: Dhiraj Peguero Age: 33 yrs Sex: Male : 1985 Arrival Date: 08/22/2018 Time: 07:01 Bed 14 Private MD: Diagnosis: Influenza due to certain identified influenza viruses-Influenza B Presentation: 08/22 07:06 Presenting complaint: Patient states: chills, cough, congestion started 3 days ago and sv yesterday started c/o chest pain with breathing and SOB. Transition of care: patient was not received from another setting of care. Onset of symptoms was August 19, 2018. Care prior to arrival: None. 07:06 Method Of Arrival: Ambulatory sv 07:06 Acuity: JUAN DIEGO 3 sv 07:09 Initial Sepsis Screen: Does the patient meet any 2 criteria? RR > 20 per min. No. sv Patient's initial sepsis screen is negative. Does the patient have a suspected source of infection? Yes: Productive cough/pneumonia. 07:19 Risk Assessment: Do you want to hurt yourself or someone else? Patient reports no ph desire to harm self or others. Triage Assessment: 07:06 General: Appears in no apparent distress. uncomfortable, Behavior is cooperative, sv appropriate for age. Pain: Complains of pain in chest Pain currently is 6 out of 10 on a pain scale. Pain began 1 day ago. Is intermittent, episodic, Aggravated by coughing. Neuro: Level of Consciousness is awake, alert, obeys commands, Oriented to person, place, time, situation, Gait is steady. Respiratory: Airway is patent Respiratory effort is even, unlabored, Respiratory pattern is symmetrical, tachypnea Onset: The symptoms/episode began/occurred yesterday, the patient has mild shortness of breath. Historical: - Allergies: 07:07 Phenergan; sv - PMHx: 07:07 Kidney stones; Sleep Apnea; sv - PSHx: 07:07 Appendectomy; Cholecystectomy; sv - Immunization history:: Flu vaccine is not up to date. - Social history:: Smoking status: Patient uses tobacco products, smokes one pack cigarettes per day. - Ebola Screening: : No symptoms or risks identified at this time. Screenin:19 Abuse screen: Denies threats or abuse. Denies injuries from another. Nutritional ph screening: No deficits noted. Tuberculosis screening: No symptoms or risk factors identified. Fall Risk None identified. Assessment: 07:35 General: Appears in no apparent distress. uncomfortable, obese, well groomed, Behavior ph is calm, cooperative, appropriate for age, Reports fever for > 3 days, feeling ill for > 3 days. Pain: Complains of pain in chest and "all over". Neuro: Level of Consciousness is awake, alert, obeys commands, Oriented to person, place, time, situation, Reports headache. Cardiovascular: Reports chest pain, fatigue, shortness of breath, vomiting, Capillary refill < 3 seconds Patient's skin is warm and dry. Rhythm is sinus rhythm Chest pain is located in right left anterior chest wall is aggravated by breathing. Respiratory: Reports shortness of breath at rest cough that is productive, pain with cough pain with respiration Airway is patent Respiratory effort is even, unlabored, Respiratory pattern is regular, symmetrical, Breath sounds are coarse in mediastinum. GI: Reports diarrhea, nausea, vomiting. EENT: Reports nasal congestion. Derm: Skin is intact, Skin is pink, warm \\T\\ dry. Musculoskeletal: Circulation, motion, and sensation intact. Range of motion: intact in all extremities. 08:30 Reassessment: Patient appears in no apparent distress at this time. Patient and/or ph family updated on plan of care and expected duration. Pain level reassessed. Patient is alert, oriented x 3, equal unlabored respirations, skin warm/dry/pink. Pt c/o chills, oral temp 100.4, ERP notified, see MAR. 09:20 Reassessment: Patient appears in no apparent distress at this time. Patient and/or ph family updated on plan of care and expected duration. Pain level reassessed. Patient is alert, oriented x 3, equal unlabored respirations, skin warm/dry/pink. Pt resting quietly, awaiting Xray results, VSS. 10:02 Reassessment: Patient appears in no apparent distress at this time. Patient and/or ph family updated on plan of care and expected duration. Pain level reassessed. Patient is alert, oriented x 3, equal unlabored respirations, skin warm/dry/pink. Pt d/c home. Vital Signs: 07:08 BP 163 / 83; Pulse 86; Resp 28; Temp 98.9(O); Pulse Ox 98% on R/A; Weight 167.83 kg; sv Height 6 ft. 4 in. (193.04 cm); Pain 6/10; 08:21 BP 156 / 84; Pulse 89; Resp 22; Temp 100.4; Pulse Ox 100% ; ph 09:20 BP 126 / 70; Pulse 83; Resp 20; Temp 98.0; Pulse Ox 100% on R/A; mh5 07:08 Body Mass Index 45.04 (167.83 kg, 193.04 cm) sv ED Course: 07:01 Patient arrived in ED. am2 07:07 Triage completed. sv 07:09 Arm band placed on. sv 07:10 Brandt Alaniz, RN is Primary Nurse. rr5 07:12 Gabriele Montaño NP is PHCP. pm1 07:14 Gloria Hernández, RN is Primary Nurse. ph 07:19 Patient has correct armband on for positive identification. Bed in low position. Call ph light in reach. Side rails up X 1. Pulse ox on. NIBP on. Door closed. Noise minimized. Warm blanket given. Head of bed elevated. 07:20 Yonathan Ruth MD is Attending Physician. pm1 07:46 EKG done, by ED staff, reviewed by Gabriele Montaño NP Flu and/or RSV swab sent to lab. 5 07:46 Flu Sent. 5 08:02 Chest Pa And Lat (2 Views) XRAY In Process Unspecified. EDMS 10:00 No provider procedures requiring assistance completed. IV discontinued, intact, ph bleeding controlled, No redness/swelling at site. Pressure dressing applied. Administered Medications: 07:45 Drug: Albuterol - atroVENT (3:1) (2.5 mg - 0.5 mg) 3 ml Route: Nebulizer; ph 08:25 Follow up: Response: No adverse reaction ph 07:46 Drug: predniSONE 60 mg Route: PO; ph 08:25 Follow up: Response: No adverse reaction ph 07:46 Drug: Tussionex Pennkinetic ER 5 ml Route: PO; ph 08:25 Follow up: Response: No adverse reaction ph 08:25 Drug: Tylenol 1000 mg Route: PO; ph 10:03 Follow up: Response: No adverse reaction; Temperature is decreased ph Outcome: 09:44 Discharge ordered by . pm1 10:03 Patient left the ED. ph 10:03 Discharged to home ambulatory. ph 10:03 Condition: good 10:03 Discharge instructions given to patient, Instructed on discharge instructions, follow up and referral plans. medication usage, Demonstrated understanding of instructions, follow-up care, medications, Prescriptions given X 3. Signatures: Dispatcher [employer] Rozina Gee RN RN Gloria Hernández RN RN Gabriele Montaño NP GENERAL ADMINISTRATOR 1 Penelope Munson [facility] Mallory Stout Brandt Casas RN RN [id number]
--- NOTE | 2018-08-22 09:44 | EDPHYS ---
Physician Documentation [facility] Name: Dhiraj Peguero Age: 33 yrs Sex: Male : 1985 Arrival Date: 08/22/2018 Time: 07:01 Bed 14 Private MD: ED Physician Yonathan Ruth HPI: 08/22 07:24 This 33 yrs old Male presents to ER via Ambulatory with complaints of Cough, pm1 Fever, Shortness Of Breath. 07:24 The patient or guardian reports cough, with productive sputum. Onset: The pm1 symptoms/episode began/occurred 3 day(s) ago. Severity of symptoms: in the emergency department the symptoms are unchanged. Modifying factors: The symptoms are alleviated by nothing, the symptoms are aggravated by nothing. Associated signs and symptoms: Pertinent positives: chest pain, with cough, with breathing, fever. The patient has not recently seen a physician. Sick contact son with URI. Historical: - Allergies: 07:07 Phenergan; sv - PMHx: 07:07 Kidney stones; Sleep Apnea; sv - PSHx: 07:07 Appendectomy; Cholecystectomy; sv - Immunization history:: Flu vaccine is not up to date. - Social history:: Smoking status: Patient uses tobacco products, smokes one pack cigarettes per day. - Ebola Screening: : No symptoms or risks identified at this time. ROS: 07:24 Eyes: Negative for injury, pain, redness, and discharge, ENT: Negative for injury, pm1 pain, and discharge, Neck: Negative for injury, pain, and swelling. 07:24 Abdomen/GI: Negative for abdominal pain, nausea, vomiting, diarrhea, and constipation, Back: Negative for injury and pain, : Negative for injury, bleeding, discharge, and swelling, MS/Extremity: Negative for injury and deformity, Skin: Negative for injury, rash, and discoloration, Neuro: Negative for headache, weakness, numbness, tingling, and seizure. 07:24 Constitutional: Positive for body aches, fever, Negative for poor PO intake. 07:24 Cardiovascular: Positive for chest pain, with cough, Negative for edema, palpitations. 07:24 Respiratory: Positive for cough, shortness of breath, Negative for wheezing. Exam: 07:24 Constitutional: This is a well developed, well nourished patient who is awake, alert, pm1 and in no acute distress. Head/Face: Normocephalic, atraumatic. Eyes: Pupils equal round and reactive to light, extra-ocular motions intact. Lids and lashes normal. Conjunctiva and sclera are non-icteric and not injected. Cornea within normal limits. Periorbital areas with no swelling, redness, or edema. ENT: Nares patent. No nasal discharge, no septal abnormalities noted. Tympanic membranes are normal and external auditory canals are clear. Oropharynx with no redness, swelling, or masses, exudates, or evidence of obstruction, uvula midline. Mucous membranes moist. Neck: Trachea midline, no thyromegaly or masses palpated, and no cervical lymphadenopathy. Supple, full range of motion without nuchal rigidity, or vertebral point tenderness. No Meningismus. Chest/axilla: Normal chest wall appearance and motion. Nontender with no deformity. No lesions are appreciated. Cardiovascular: Regular rate and rhythm with a normal S1 and S2. No gallops, murmurs, or rubs. Normal PMI, no JVD. No pulse deficits. 07:24 Back: No spinal tenderness. No costovertebral tenderness. Full range of motion. Skin: Warm, dry with normal turgor. Normal color with no rashes, no lesions, and no evidence of cellulitis. MS/ Extremity: Pulses equal, no cyanosis. Neurovascular intact. Full, normal range of motion. 07:24 Respiratory: the patient does not display signs of respiratory distress, Respirations: normal, Breath sounds: bronchial sounds, are heard diffusely. 07:24 Abdomen/GI: Inspection: obese Bowel sounds: normal, Palpation: abdomen is soft and non-tender, in all quadrants, mass, is not appreciated, rebound tenderness, is not appreciated. 07:24 Neuro: Orientation: is normal, Motor: is normal, moves all fours, Sensation: is normal, no obvious gross deficits. Vital Signs: 07:08 BP 163 / 83; Pulse 86; Resp 28; Temp 98.9(O); Pulse Ox 98% on R/A; Weight 167.83 kg; sv Height 6 ft. 4 in. (193.04 cm); Pain 6/10; 08:21 BP 156 / 84; Pulse 89; Resp 22; Temp 100.4; Pulse Ox 100% ; ph 09:20 BP 126 / 70; Pulse 83; Resp 20; Temp 98.0; Pulse Ox 100% on R/A; mh5 07:08 Body Mass Index 45.04 (167.83 kg, 193.04 cm) sv MDM: 07:12 Patient medically screened. pm1 08:45 Data reviewed: vital signs. Data interpreted: Pulse oximetry: on room air is 100 %. pm1 Interpretation: normal. 08:48 Counseling: I had a detailed discussion with the patient and/or guardian regarding: the pm1 historical points, exam findings, and any diagnostic results supporting the discharge/admit diagnosis, lab results. 08/22 07:19 Order name: Basic Metabolic Panel; Complete Time: 08:23 pm08/22 07:19 Order name: CBC with Diff; Complete Time: 08:23 pm08/22 07:19 Order name: Troponin (emerg Dept Use Only); Complete Time: 08:23 pm08/22 07:19 Order name: Chest Pa And Lat (2 Views) XRAY; Complete Time: 09:52 pm08/22 07:19 Order name: Flu; Complete Time: 08:23 pm08/22 07:19 Order name: EKG; Complete Time: 07:21 pm08/22 07:19 Order name: Cardiac monitoring; Complete Time: 07:46 pm08/22 07:19 Order name: EKG - Nurse/Tech; Complete Time: 07:46 pm08/22 07:19 Order name: IV Saline Lock; Complete Time: 07:46 pm08/22 07:19 Order name: Labs collected and sent; Complete Time: 07:46 pm08/22 07:19 Order name: O2 Per Protocol; Complete Time: 07:47 pm08/22 07:19 Order name: O2 Sat Monitoring; Complete Time: 07:47 pm1 EC:25 Rate is 83 beats/min. Rhythm is regular, Normal Sinus Rhythm with No ectopy. No Q pm1 waves. No ST changes noted. Clinical impression: Normal ECG. Administered Medications: 07:45 Drug: Albuterol - atroVENT (3:1) (2.5 mg - 0.5 mg) 3 ml Route: Nebulizer; ph 08:25 Follow up: Response: No adverse reaction ph 07:46 Drug: predniSONE 60 mg Route: PO; ph 08:25 Follow up: Response: No adverse reaction ph 07:46 Drug: Tussionex Pennkinetic ER 5 ml Route: PO; ph 08:25 Follow up: Response: No adverse reaction ph 08:25 Drug: Tylenol 1000 mg Route: PO; ph 10:03 Follow up: Response: No adverse reaction; Temperature is decreased ph Disposition: 08/23 08:43 Co-signature as Attending Physician, Yonathan Ruth MD I agree with the assessment and sameer plan of care. Disposition: 08/22/18 09:44 Discharged to Home. Impression: Influenza due to certain identified influenza viruses - Influenza B. - Condition is Stable. - Discharge Instructions: Influenza, Adult. - Prescriptions for Guaifenesin AC 10- 100 mg/5 mL Oral Liquid - take 10 milliliter by ORAL route every 4 hours As needed; 240 milliliter. Albuterol Sulfate 90 mcg/actuation - inhale 1-2 puff by INHALATION route every 4-6 hours; 1 Inhaler. Medrol (Elie) 4 mg Oral Tablets, Dose Pack - take 1 tablet by ORAL route as directed - follow package instructions; 1 packet. - Work release form, Medication Reconciliation Form, Thank You Letter, Antibiotic Education, Prescription Opioid Use form. - Follow up: Emergency Department; When: As needed; Reason: Worsening of condition. Follow up: Private Physician; When: 2 - 3 days; Reason: Recheck today's complaints, Continuance of care, Re-evaluation by your physician. - Problem is new. - Symptoms have improved. Signatures: Dispatcher [employer] Rozina Gee RN RN sv Anderson, Corey, MD MD cha Hall, Patricia, RN RN ph Marinas, Patrick, MICHAEL NEWS WRITER pm1 Corrections: (The following items were deleted from the chart) 08/22 10:03 09:44 08/22/2018 09:44 Discharged to Home. Impression: Influenza due to certain ph identified influenza viruses - Influenza B. Condition is Stable. Forms are Medication Reconciliation Form, Thank You Letter, Antibiotic Education, Prescription Opioid Use. Follow up: Emergency Department; When: As needed; Reason: Worsening of condition. Follow up: Private Physician; When: 2 - 3 days; Reason: Recheck today's complaints, Continuance of care, Re-evaluation by your physician. Problem is new. Symptoms have improved. pm1
[2018-08-22 10:11] VITALS: O2SAT 100
[2018-08-22 10:12] VITALS: BP 126/70; TEMP 98
== END 2018-08-22 10:03 | disposition home or self-care (01) ==
LOC: ER 06:58
DX: J10.1 Influenza due to other identified influenza virus with other respiratory manifestations (principal); F17.210 Nicotine dependence, cigarettes, uncomplicated; Z88.8 Allergy status to other drugs, medicaments and biological substances
CPT/HCPCS: 36415; 71046; 80048; 84484; 85025; 87804; 93005; 94640; 99285; J7512

== ENCOUNTER 2019-08-16 13:59 | Emergency (ER) | payer OTHER, SELFPAY ==
--- OUTSIDE RECORDS SUMMARY | 2019-08-16 15:02 | XMS REPORT ---
:1985 Author Organization [facility] t Address [address] [place] [address] Dr. Christianson [address] [place] [id number] Care Team Providers Name Role Phone Unavailable Unavailable Unavailable Problems This patient has no known problems. Allergies, Adverse Reactions, Alerts This patient has no known allergies or adverse reactions. Medications This patient has no known medications. Procedures This patient has no known procedures. Results This patient has no known results.
[2019-08-16] MEDS ORDERED: ONDANSETRON 4 MG/2 ML VIAL ONE (16:18)
[2019-08-16] MEDS ORDERED: NA CHLORIDE 0.9% 500 ML ONE (16:18)
[2019-08-16] MEDS ORDERED: HYDROMORPHONE HCL 1 MG/ML INJ ONE (16:18)
[2019-08-16 16:28] LABS: Absolute Lymphocytes (CBC) 2.6 K/uL (0.7-4.9); Basophils % 0.6 % (0-1.3); Hematocrit 45.6 % (39.6-49.0); Lymphocytes % 21.8 % (15.3-44.8); MPV 8.9 fL (7.6-11.3); RBC Red Blood Cell Count 5.27 M/uL (4.33-5.43)
--- NOTE | 2019-08-16 16:35 | RAD REPORT ---
EXAM DESCRIPTION: CT - Stone Protocol - 08/16/2019 4:24 pm CLINICAL HISTORY: Abdominal pain. Left flank COMPARISON: 2015 TECHNIQUE: Computed axial tomography of the abdomen pelvis was obtained without oral or IV contrast. Lack of IV and oral contrast limits evaluation of solid organs, bowel, and vessels. Coronal reformat corona images were obtained and reviewed. All CT scans are performed using dose optimization technique as appropriate and may include automated exposure control or mA/KV adjustment according to patient size. FINDINGS: A renal calculus is not seen. An ureteral calculus is not noted. A bladder calculus is not present. Fatty liver. Cholecystectomy Spleen, pancreas and adrenals appear grossly normal There is no evidence of diverticulitis. Small umbilical hernia Small ventral hernia contains fat within lower abdomen Spondylolysis L5 IMPRESSION: Negative for a genitourinary calculus
[2019-08-16 16:48] LABS: Potassium 3.8 mmol/L (3.5-5.1)
[2019-08-16] MEDS ORDERED: FENTANYL CITR 100 MCG/2 ML ONE ×2 (17:01→18:08)
[2019-08-16 18:20] LABS: Urine Blood NEGATIVE (NEG); Urine Glucose NEGATIVE (NEG); Urine Protein NEGATIVE (NEG); Urine Specific Gravity >1.030 (1.005-1.030); Urine pH 5.5 (5.0-7.0)
--- NOTE | 2019-08-16 18:58 | ER ---
Nurse's Notes [facility] Name: Dhiraj Peguero Age: 34 yrs Sex: Male : 1985 Arrival Date: 08/16/2019 Time: 14:01 Bed 26 Private MD: Diagnosis: Musculoskeletal Pain - Left lateral lower back Presentation: 08/15 14:40 Chief complaint: Patient states: L flank pain started 2 weeks ago, worse past few days. ca1 History of 10-11 kidney stones. Reports nausea. Denies vomiting. Coronavirus screen: Proceed with normal triage. Patient denies a cough. Patient denies shortness of breath or difficulty breathing. Patient denies measured and/or subjective temperature greater than 100.4F prior to today's visit. Patient denies travel on a cruise ship or to a country the [facility] currently lists as an affected area. Patient denies contact with known and/or suspected case of COVID-19. Ebola Screen: Patient negative for fever greater than or equal to 101.5 degrees Fahrenheit, and additional compatible Ebola Virus Disease symptoms Patient denies exposure to infectious person. Patient denies travel to an Ebola-affected area in the 21 days before illness onset. No symptoms or risks identified at this time. Initial Sepsis Screen: Does the patient meet any 2 criteria? No. Patient's initial sepsis screen is negative. Does the patient have a suspected source of infection? No. Patient's initial sepsis screen is negative. Risk Assessment: Do you want to hurt yourself or someone else? Patient reports no desire to harm self or others. Onset of symptoms was August 16, 2019. 14:40 Method Of Arrival: Ambulatory ca1 14:40 Acuity: [place]UAN [place]IE[place] 3 ca1 Historical: - Allergies: 14:44 Phenergan; ca1 - Home Meds: 14:44 None [Active]; ca1 - PMHx: 14:44 Kidney stones; Sleep Apnea; ca1 - PSHx: 14:44 Appendectomy; Cholecystectomy; Lithotripsy; ca1 - Immunization history:: Adult Immunizations up to date. - Social history:: Smoking status: Patient reports the use of cigarette tobacco products, smokes two packs cigarettes per day. Screenin:45 Abuse screen: Denies threats or abuse. Denies injuries from another. Nutritional iw screening: No deficits noted. Tuberculosis screening: No symptoms or risk factors identified. Fall Risk IV access (20 points). Assessment: 15:43 General: Appears uncomfortable, obese, Behavior is cooperative, anxious. General: iw Denies fever. Pain: Complains of pain in left low back and left mid back Pain currently is 10 out of 10 on a pain scale. Neuro: Level of Consciousness is awake, alert, obeys commands, Oriented to person, place, time, situation, Moves all extremities. Cardiovascular: Patient's skin is warm and dry. Respiratory: Respiratory effort is even, unlabored, Respiratory pattern is regular. GI: Patient currently denies diarrhea, vomiting. : Denies pain in left flank(s). Derm: Skin is intact, is healthy with good turgor. Musculoskeletal: Range of motion: intact in all extremities. 16:50 Reassessment: pt c/o 10/10 pain to left mid back, Dr. Mendez notified, new orders iw received. 17:29 Reassessment: Patient appears in no apparent distress at this time. pt states pain has iw decreased to 4/10, is still there but is now tolerable. Vital Signs: 14:40 BP 170 / 96; Pulse 97; Resp 16 S; Temp 97.6(TE); Pulse Ox 100% on R/A; Weight 172.37 kg ca1 (R); Height 6 ft. 4 in. (193.04 cm) (R); Pain 9/10; 16:40 BP 128 / 77; Pulse 74; Resp 16; Pulse Ox 98% on R/A; Pain 10/10; iw 14:40 Body Mass Index 46.25 (172.37 kg, 193.04 cm) ca1 ED Course: 14:01 Patient arrived in ED. as 14:43 Triage completed. ca1 14:44 Arm band placed on right wrist. ca1 15:32 Makenzie Ambrose, RN is Primary Nurse. iw 15:45 Inserted saline lock: 20 gauge in right antecubital area, using aseptic technique. iw 15:49 Estuardo Mendez MD is Attending Physician. kdr 15:50 Patient has correct armband on for positive identification. iw 16:24 CT Stone Protocol In Process Unspecified. EDMS 19:51 No provider procedures requiring assistance completed. IV discontinued, intact, iw bleeding controlled, No redness/swelling at site. Pressure dressing applied. Administered Medications: 16:10 Drug: Zofran (Ondansetron) 4 mg Route: IVP; Site: right antecubital; iw 16:15 Drug: Dilaudid 1 mg Route: IVP; Site: right antecubital; iw 16:21 Not Given (Duplicate Order): Dilaudid 1 mg IM once; RASS on ADMIN: Combtv4, Very iw Agttd3, Agttd2, Rstlss1, AlertClm0, Drwsy-1, Lt Sdtn-2, Mod Sdtn-3, Dp Sdtn-4, UnArsble-5 16:21 Not Given (Duplicate Order): Zofran (Ondansetron) 4 mg IVP once; over 2 minutes iw 16:21 Drug: NS 0.9% 500 ml Route: IV; Rate: bolus; Site: right antecubital; iw 17:01 Drug: fentaNYL (PF) 100 mcg Route: IVP; Site: right antecubital; iw 18:09 Drug: fentaNYL (PF) 100 mcg Route: IVP; Site: right antecubital; iw 19:10 Drug: TORadol - Ketorolac 15 mg Route: IVP; Site: right antecubital; sg 19:11 Drug: Robaxin 1 grams Route: IVPB; Infused Over: 1 hrs; Site: right antecubital; sg 19:11 Drug: SOLU-Medrol 125 mg Route: IVP; Site: right antecubital; sg 19:12 Drug: [place] 10 mg-325 mg 1 tabs Route: PO; sg Outcome: 18:56 Discharge ordered by . marc 19:51 Discharged to home ambulatory. iw 19:51 Condition: good 19:51 Discharge instructions given to patient, Instructed on discharge instructions, follow up and referral plans. medication usage, Demonstrated understanding of instructions, follow-up care, medications, Prescriptions given X 3. 19:52 Patient left the ED. sg Signatures: Dispatcher [employer] EDArmani Tirado RN RN sg Estuardo Mendez MD MD kdr Martinez, Amelia as Williams, Irene, RN RN iw Kavitha Crawford RN RN ca1
--- NOTE | 2019-08-16 18:58 | EDPHYS ---
Physician Documentation [facility] Name: Dhiraj Peguero Age: 34 yrs Sex: Male : 1985 Arrival Date: 08/16/2019 Time: 14:01 Bed 26 Private MD: ED Physician Estuardo Mendez HPI: 08/16 08:47 This 34 yrs old Male presents to ER via Ambulatory with complaints of Flank kdr Pain, left lateral lower back pain. 08:47 The patient complains of pain in the left low back and left mid back. The pain does not kdr radiate. Onset: The symptoms/episode began/occurred gradually, 2 week(s) ago. Modifying factors: The symptoms are alleviated by nothing. the symptoms are aggravated by movement, palpation/percussion. Associated signs and symptoms: The patient has no apparent associated signs or symptoms. Severity of pain: At its worst the pain was moderate severe incapacitating in the emergency department the pain is unchanged. The patient has a history of kidney stones but this does not feel like that according to the patient. He can not associate the onset with any trauma or suspected inciting incident. The patient has not recently seen a physician. Historical: - Allergies: 08/15 14:44 Phenergan; ca1 - Home Meds: 14:44 None [Active]; ca1 - PMHx: 14:44 Kidney stones; Sleep Apnea; ca1 - PSHx: 14:44 Appendectomy; Cholecystectomy; Lithotripsy; ca1 - Immunization history:: Adult Immunizations up to date. - Social history:: Smoking status: Patient reports the use of cigarette tobacco products, smokes two packs cigarettes per day. ROS: 08/16 08:47 Constitutional: Negative for fever, chills, and weight loss, Eyes: Negative for injury, kdr pain, redness, and discharge, ENT: Negative for injury, pain, and discharge, Neck: Negative for injury, pain, and swelling, Cardiovascular: Negative for chest pain, palpitations, and edema, Respiratory: Negative for shortness of breath, cough, wheezing, and pleuritic chest pain, Abdomen/GI: Negative for abdominal pain, nausea, vomiting, diarrhea, and constipation, : Negative for injury, bleeding, discharge, and swelling, MS/Extremity: Negative for injury and deformity, Skin: Negative for injury, rash, and discoloration, Neuro: Negative for headache, weakness, numbness, tingling, and seizure activity. Psych: Negative for depression, anxiety, suicide ideation, homicidal ideation, and hallucinations, Allergy/Immunology: Negative for hives, rash, and allergies, Endocrine: Negative for neck swelling, polydipsia, polyuria, polyphagia, and marked weight changes, Hematologic/Lymphatic: Negative for swollen nodes, abnormal bleeding, and unusual bruising. Back: Positive for decreased range of motion, pain at rest, pain with movement, of the left low back and left mid back. Exam: 08:47 Constitutional: This is a well developed, well nourished patient who is awake, alert, kdr and in mild distress. Head/Face: Normocephalic, atraumatic. Eyes: Pupils equal round and reactive to light, extra-ocular motions intact. Lids and lashes normal. Conjunctiva and sclera are non-icteric and not injected. Cornea within normal limits. Periorbital areas with no swelling, redness, or edema. Neck: Trachea midline, no thyromegaly or masses palpated, and no cervical lymphadenopathy. Supple, full range of motion without nuchal rigidity, or vertebral point tenderness. No Meningismus. Chest/axilla: Normal chest wall appearance and motion. Nontender with no deformity. No lesions are appreciated. Cardiovascular: Regular rate and rhythm with a normal S1 and S2. No gallops, murmurs, or rubs. Normal PMI, no JVD. No pulse deficits. Respiratory: Lungs have equal breath sounds bilaterally, clear to auscultation and percussion. No rales, rhonchi or wheezes noted. No increased work of breathing, no retractions or nasal flaring. Abdomen/GI: Soft, non-tender, with normal bowel sounds. No distension or tympany. No guarding or rebound. No evidence of tenderness throughout. Skin: Warm, dry with normal turgor. Normal color with no rashes, no lesions, and no evidence of cellulitis. MS/ Extremity: Pulses equal, no cyanosis. Neurovascular intact. Full, normal range of motion. Neuro: Awake and alert, GCS 15, oriented to person, place, time, and situation. Cranial nerves II-XII grossly intact. Motor strength 5/5 in all extremities. Sensory grossly intact. Cerebellar exam normal. Normal gait. Psych: Awake, alert, with orientation to person, place and time. Behavior, mood, and affect are within normal limits. 08:47 Back: pain, that is moderate, that is severe, of the left low back and left mid back, ROM is painful, with all movement, normal spinal alignment noted, CVA tenderness, that is mild, muscle spasm, is appreciated in the left low back and left mid back. Vital Signs: 08/15 14:40 BP 170 / 96; Pulse 97; Resp 16 S; Temp 97.6(TE); Pulse Ox 100% on R/A; Weight 172.37 kg ca1 (R); Height 6 ft. 4 in. (193.04 cm) (R); Pain 9/10; 16:40 BP 128 / 77; Pulse 74; Resp 16; Pulse Ox 98% on R/A; Pain 10/10; iw 14:40 Body Mass Index 46.25 (172.37 kg, 193.04 cm) ca1 MDM: 18:56 Patient medically screened. kdr 08/16 08:47 Data reviewed: vital signs, nurses notes, lab test result(s), radiologic studies. kdr Counseling: I had a detailed discussion with the patient and/or guardian regarding: the historical points, exam findings, and any diagnostic results supporting the discharge/admit diagnosis, lab results, radiology results, the need for outpatient follow up. ED course: The patient had partial relief but still had discomfort at the time of discharge. The patient was instructed to return if his symptoms persisted or worsened. 08/15 15:59 Order name: Basic Metabolic Panel; Complete Time: 17:25 kdr 08/15 15:59 Order name: CBC with Diff; Complete Time: 17:25 kdr 08/15 15:59 Order name: CT Stone Protocol; Complete Time: 17:25 kdr 08/15 17:48 Order name: Urine Dipstick--Ancillary (enter results); Complete Time: 18:45 em1 08/15 15:59 Order name: IV Saline Lock; Complete Time: 16:02 kdr 08/15 15:59 Order name: Labs collected and sent; Complete Time: 17:28 kdr 08/15 15:59 Order name: Urine Dipstick-Ancillary (obtain specimen); Complete Time: 17:41 kdr Administered Medications: 08/15 16:10 Drug: Zofran (Ondansetron) 4 mg Route: IVP; Site: right antecubital; iw 16:15 Drug: Dilaudid 1 mg Route: IVP; Site: right antecubital; iw 16:21 Not Given (Duplicate Order): Dilaudid 1 mg IM once; RASS on ADMIN: Combtv4, Very iw Agttd3, Agttd2, Rstlss1, AlertClm0, Drwsy-1, Lt Sdtn-2, Mod Sdtn-3, Dp Sdtn-4, UnArsble-5 16:21 Not Given (Duplicate Order): Zofran (Ondansetron) 4 mg IVP once; over 2 minutes iw 16:21 Drug: NS 0.9% 500 ml Route: IV; Rate: bolus; Site: right antecubital; iw 17:01 Drug: fentaNYL (PF) 100 mcg Route: IVP; Site: right antecubital; iw 18:09 Drug: fentaNYL (PF) 100 mcg Route: IVP; Site: right antecubital; iw 19:10 Drug: TORadol - Ketorolac 15 mg Route: IVP; Site: right antecubital; sg 19:11 Drug: Robaxin 1 grams Route: IVPB; Infused Over: 1 hrs; Site: right antecubital; sg 19:11 Drug: SOLU-Medrol 125 mg Route: IVP; Site: right antecubital; sg 19:12 Drug: [place] 10 mg-325 mg 1 tabs Route: PO; sg Disposition: 08/16/19 18:56 Discharged to Home. Impression: Musculoskeletal Pain - Left lateral lower back. - Condition is Stable. - Discharge Instructions: Musculoskeletal Pain, Muscle Cramps and Spasms, [id number]. - Prescriptions for Ibuprofen 800 mg Oral Tablet - take 1 tablet by ORAL route every 8 hours As needed take with food; 15 tablet. Robaxin 500 mg Oral Tablet - take 2 tablet by ORAL route every 6 hours As needed; 40 tablet. Tylenol- Codeine #3 300-30 mg Oral Tablet - take 2 tablets by ORAL route every 6 hours As needed; 16 tablet. Medrol (Elie) 4 mg Oral Tablets, Dose Pack - take 1 tablet by ORAL route as directed - follow package instructions; 1 packet. - Work release form, Medication Reconciliation Form, Thank You Letter, Prescription Opioid Use form. - Follow up: Private Physician; When: 2 - 3 days; Reason: If symptoms return, Further diagnostic work-up, Recheck today's complaints, Continuance of care, Re-evaluation by your physician. - Problem is new. - Symptoms have improved. Signatures: Dispatcher [employer] Armani Cummins RN RN sg Estuardo Mendez MD MD kdr Makenzie Ambrose RN RN iw Kavitha Crawford RN RN ca1 Corrections: (The following items were deleted from the chart) 19:52 18:56 08/16/2019 18:56 Discharged to Home. Impression: Musculoskeletal Pain - Left sg lateral lower back. Condition is Stable. Forms are Medication Reconciliation Form, Thank You Letter, Antibiotic Education, Prescription Opioid Use. Follow up: Private Physician; When: 2 - 3 days; Reason: If symptoms return, Further diagnostic work-up, Recheck today's complaints, Continuance of care, Re-evaluation by your physician. Problem is new. Symptoms have improved. kdr
[2019-08-16] MEDS ORDERED: HYDROCODONE/APAP 10/325 TAB ONE (19:02)
[2019-08-16] MEDS ORDERED: NA CHLORIDE 0.9% 100 ML IV ONE (19:02)
[2019-08-16] MEDS ORDERED: KETOROLAC 30 MG/ML INJ ONE (19:02)
[2019-08-16] MEDS ORDERED: METHYLPREDNISOLONE 125 MG INJ ONE ×2 (19:02→19:07)
[2019-08-16] MEDS ORDERED: METHOCARBAMOL 1,000 MG/10 ML VIAL IV ONE (19:02)
[2019-08-16 20:03] VITALS: TEMP 97.6
[2019-08-16 20:05] VITALS: BP 128/77; O2SAT 98
== END 2019-08-16 19:52 | disposition home or self-care (01) ==
LOC: ER 13:59
DX: M54.5 Low back pain (principal); F17.210 Nicotine dependence, cigarettes, uncomplicated; Z87.442 Personal history of urinary calculi; Z88.8 Allergy status to other drugs, medicaments and biological substances
CPT/HCPCS: 85025; 80048; 36415; 81003; 76377; 74176; 96375; 96374; 99284; J3010 ×2; J1170; J7040; J2930 ×2; J2405; J2800

== ENCOUNTER 2019-09-12 06:49 | Emergency (ER) | payer OTHER ==
--- OUTSIDE RECORDS SUMMARY | 2019-09-12 06:52 | XMS REPORT | Continuity of Care Document ---
:1985 Author Organization [facility] t Address [address] [place] [address] Dr. Christianson [address] [place] [id number] Care Team Providers Name Role Phone Unavailable Unavailable Unavailable Problems This patient has no known problems. Allergies, Adverse Reactions, Alerts This patient has no known allergies or adverse reactions. Medications This patient has no known medications. Procedures This patient has no known procedures. Results This patient has no known results.
[2019-09-12 07:20] LABS: Protime INR 0.97
[2019-09-12 07:21] LABS: Basophils % 0.9 % (0-1.3); Hematocrit 42.1 % (39.6-49.0); Lymphocytes % 23.2 % (15.3-44.8); MPV 8.6 fL (7.6-11.3); RBC Red Blood Cell Count 4.98 M/uL (4.33-5.43)
[2019-09-12] MEDS ORDERED: ONDANSETRON 4 MG/2 ML VIAL ONE (07:22)
[2019-09-12] MEDS ORDERED: MORPHINE 4 MG/ML SYR ONE (07:22)
[2019-09-12 07:39] LABS: ALT/SGPT 41 U/L (12-78); AST/SGOT 21 U/L (15-37); Albumin 3.4 g/dL (3.4-5.0); Alkaline Phosphatase 68 U/L (45-117); BUN Blood Urea Nitrogen 11 mg/dL (7-18); Bicarbonate 25 mmol/L (21-32); Bilirubin Direct < 0.1 mg/dL (0-0.2); Bilirubin Total 0.3 mg/dL (0.2-1.0); Glucose Level 138 mg/dL (74-106); Magnesium 2.3 mg/dL (1.8-2.4); NT PRO-BNP 11 pg/mL (<125); Potassium 3.6 mmol/L (3.5-5.1); Protein, Total 7.2 g/dL (6.4-8.2); Sodium Level 136 mmol/L (136-145); Troponin (Emerg Dept Use Only) < 0.02 ng/mL (0.0-0.045)
--- NOTE | 2019-09-12 07:56 | RAD REPORT ---
EXAM DESCRIPTION: RAD - Chest Single View - 09/12/2019 7:45 am CLINICAL HISTORY: CHEST PAIN COMPARISON: Two view chest August 22, 2018 TECHNIQUE: AP portable chest image was obtained 09/12/2019 7:45 am . FINDINGS: Lungs are clear. Detail is limited by portable technique and large body habitus. Heart and vasculature are normal. No measurable pleural effusion and no pneumothorax. No acute bony abnormalit y seen. No acute aortic findings suspected. IMPRESSION: No acute cardiopulmonary process.
--- NOTE | 2019-09-12 09:48 | RAD REPORT ---
EXAM DESCRIPTION: CT - Chest For Pe Angio - 09/12/2019 9:34 am CLINICAL HISTORY: CHEST PAIN COMPARISON: Chest Single View dated 09/12/2019 TECHNIQUE: Dynamically enhanced 3 mm thick images of the chest were obtained during administration o f approximately 150mL Isovue 370 IV contrast. Coronal and oblique MIP reconstruction images were gene rated and reviewed. Exam utilizes a protocol to evaluate the pulmonary arterial tree. All CT scans are performed using dose optimization technique as appropriate and may include automated exposure control or mA/KV adjustment according to patient size. FINDINGS: No pulmonary emboli are identified. The aorta as imaged shows no acute or suspicious finding. No pericardial thickening or effusion. Hear t is borderline enlarged. No infiltrate or mass in the lung parenchyma. No pleural effusion or pleural thickening. No mediastinal or hilar suspicious masses. No masses of the chest wall. Nonspecific axillary lymph no isabel are seen. No bulky lymphadenopathy. Patient has a 12 millimeter subcutaneous rounded soft tissue mass upper left back approximately 5 cm left lateral to midline. In the soft tissues of the back ther e is a large fatty mass 20 cm in craniocaudal dimension and 13 cm in transverse diameter. There is 1 small focus of soft tissue stranding within this mass approximately 2.5 cm in size. The rest of the m ass appears homogeneous Alex fatty attenuated. IMPRESSION: No pulmonary emboli identified. No acute lung parenchymal process. No acute chest finding seen. Large 20 centimeter right upper back fatty mass. This is most likely a benign lipoma. There is some s oft tissue stranding that precludes a definitive diagnosis. This study does not optimally imaged this mass. Follow-up may be needed to exclude a more aggressive mass.
[2019-09-12] MEDS ORDERED: KETOROLAC 30 MG/ML INJ ONE (10:27)
--- NOTE | 2019-09-12 12:05 | EDPHYS ---
Physician Documentation [facility] Name: Dhiraj Peguero Age: 34 yrs Sex: Male : 1985 Arrival Date: 09/12/2019 Time: 06:51 Bed 7 Private MD: ED Physician James Harding HPI: 09/11 07:16 This 34 yrs old Male presents to ER via EMS with complaints of Chest Pain. [facility] 07:16 The patient or guardian reports chest pain that is located primarily in the anterior [facility] chest wall. The pain does not radiate. Associated signs and symptoms: Pertinent negatives: abdominal pain, cough, shortness of breath, vomiting. The chest pain is described as sharp. Duration: The patient or guardian reports a single episode. This is a 34 year old male with no chronic medical conditions that presents to the ED with complaints of sharp anterior chest pain which does not radiates. Worsened with deep breath. Denies cough, shortness of breath. . Historical: - Allergies: 07:02 Phenergan; hb - Home Meds: 07:02 None [Active]; hb - PMHx: 07:02 Kidney stones; Sleep Apnea; hb - PSHx: 07:02 Appendectomy; Cholecystectomy; Lithotripsy; hb - Immunization history:: Adult Immunizations up to date. - Social history:: Smoking status: Patient reports the use of cigarette tobacco products, smokes 1.5 packs per day. ROS: 07:16 Constitutional: Negative for fever, chills, and weight loss, Respiratory: Negative for jmm shortness of breath, cough, wheezing, and pleuritic chest pain. 07:16 Cardiovascular: Positive for chest pain. 07:16 All other systems are negative. Exam: 07:16 Constitutional: This is a well developed, well nourished patient who is awake, alert, jmm and in no acute distress. Head/Face: atraumatic. Eyes: EOMI, no conjunctival erythema appreciated ENT: Moist Mucus Membranes Neck: Trachea midline, Supple 07:16 Cardiovascular: Regular rate and rhythm. No edema appreciated Respiratory: Normal respirations, no respiratory distress appreciated Abdomen/GI: Non distended, soft Back: Normal ROM Skin: General appearance color normal MS/ Extremity: Moves all extremities, no obvious deformities appreciated, no edema noted to the lower extremities Neuro: Awake and alert, normal gait Psych: Behavior is normal, Mood is normal, Patient is cooperative and pleasant 07:16 Chest/axilla: Inspection: normal, Palpation: tenderness, that is moderate, of the mid-sternal area. Vital Signs: 06:57 BP 123 / 80; Pulse 90; Resp 18; Temp 97.9; Pulse Ox 98% on R/A; Weight 190.06 kg; hb Height 6 ft. 4 in. (193.04 cm); Pain 8/10; 07:45 BP 135 / 77; Pulse 87; Resp 20; Pulse Ox 97% on R/A; Pain 0/10; em 09:00 BP 129 / 59; Pulse 66; Resp 16; Pulse Ox 98% on R/A; em 10:16 BP 140 / 72; Pulse 67; Resp 19; Pulse Ox 97% on R/A; em 12:15 BP 131 / 70; Pulse 64; Resp 16; Pulse Ox 99% on R/A; em 06:57 Body Mass Index 51.00 (190.06 kg, 193.04 cm) hb MDM: 06:55 Patient medically screened. [facility] 12:01 Data reviewed: vital signs, nurses notes, lab test result(s), EKG, radiologic studies, [facility] CT scan, plain films. Counseling: I had a detailed discussion with the patient and/or guardian regarding: the historical points, exam findings, and any diagnostic results supporting the discharge/admit diagnosis, lab results, radiology results, the need for outpatient follow up, to return to the emergency department if symptoms worsen or persist or if there are any questions or concerns that arise at home. ED course: I discussed ct results with the paqtient along with the need to follow up with gen surgery for reevaluation. HEART score = 1. Ct negative for PE. Patient is given strict return precautions. Patient understood and agrees with the plan of care. . 09/11 06:54 Order name: Basic Metabolic Panel; Complete Time: 07:44 [facility] 09/11 06:54 Order name: CBC with Diff; Complete Time: 07:44 [facility] 09/11 06:54 Order name: LFT's; Complete Time: 07:44 [facility] 09/11 06:54 Order name: Magnesium; Complete Time: 07:44 [facility] 09/11 06:54 Order name: NT PRO-BNP; Complete Time: 07:44 09/11 06:54 Order name: PT-INR; Complete Time: 07:44 09/11 06:54 Order name: Troponin (emerg Dept Use Only); Complete Time: 07:44 09/11 06:54 Order name: XRAY Chest (1 view); Complete Time: 07:58 09/11 08:13 Order name: D-Dimer; Complete Time: 08:47 09/11 08:29 Order name: Troponin (emerg Dept Use Only): Draw at 2 hrs; Complete Time: 12:01 09/11 08:47 Order name: CT Chest For PE Angio; Complete Time: 09:55 09/11 06:54 Order name: EKG; Complete Time: 06:56 09/11 06:54 Order name: Cardiac monitoring; Complete Time: 07:11 09/11 06:54 Order name: EKG - Nurse/Tech; Complete Time: 07:21 09/11 06:54 Order name: IV Saline Lock; Complete Time: 07:10 09/11 06:54 Order name: Labs collected and sent; Complete Time: 07:10 09/11 06:54 Order name: O2 Per Protocol; Complete Time: 07:10 09/11 06:54 Order name: O2 Sat Monitoring; Complete Time: 07:10 09/11 10:29 Order name: EKG Electrocardiogram EDMS Administered Medications: 07:15 Drug: Zofran (Ondansetron) 4 mg Route: IVP; Site: right antecubital; em 07:59 Follow up: Response: No adverse reaction em 07:17 Drug: morphine 4 mg Route: IVP; Site: right antecubital; em 07:59 Follow up: Response: No adverse reaction; Marked relief of symptoms; Pain is decreased; em RASS: Alert and Calm (0) 10:21 Drug: Ketorolac 30 mg Route: IVP; Site: right antecubital; em 12:40 Follow up: Response: No adverse reaction em Disposition: 15:48 Co-signature as Attending Physician, James Harding MD I agree with the assessment and tw4 plan of care. Disposition: 09/12/19 12:04 Discharged to Home. 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 - Condition is Stable. - Discharge Instructions: Nonspecific Chest Pain, Lipoma. - Prescriptions for Medrol (Elie) 4 mg Oral Tablets, Dose Pack - take 1 tablet by ORAL route as directed - follow package instructions; 1 packet. orphenadrine citrate 100 mg Oral Tablet Sustained Release - take 1 tablet by ORAL route 2 times per day As needed; 20 tablet. - Medication Reconciliation Form, Thank You Letter, Antibiotic Education, Prescription Opioid Use, Work release form form. - Follow up: Private Physician; When: 2 - 3 days; Reason: Recheck today's complaints, Continuance of care, Re-evaluation by your physician. Signatures: Dispatcher [employer] EDMS Yannick Sneed PA PA jmm Munoz, Edgar, RN RN Susie Fabian RN RN James Tobin MD MD tw4 Corrections: (The following items were deleted from the chart) 12:40 12:04 09/12/2019 12:04 Discharged to Home. Impression: Chest pain, unspecified; Lipoma em of the thoracic region of the back. Condition is Stable. Forms are Medication Reconciliation Form, Thank You Letter, Antibiotic Education, Prescription Opioid Use. Follow up: Private Physician; When: 2 - 3 days; Reason: Recheck today's complaints, Continuance of care, Re-evaluation by your physician. isidro
--- NOTE | 2019-09-12 12:05 | ER ---
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 Denies cough/fever. ASA 324 mg and Nitro SL x 1 administered GRIT BLASTER. 20g RAC. Coronavirus screen: Patient denies a cough. Patient reports shortness of breath or difficulty breathing. Patient denies measured and/or subjective temperature greater than 100.4F prior to today's visit. Patient denies travel on a cruise ship or to a country the [facility] currently lists as an affected area. Patient denies contact with known and/or suspected case of COVID-19. mask on pt prior to arrival, pt instructed to keep mask in place. Ebola Screen: No symptoms or risks identified at this time. Initial Sepsis Screen: Does the patient meet any 2 criteria? No. Patient's initial sepsis screen is negative. Does the patient have a suspected source of infection? No. Patient's initial sepsis screen is negative. Risk Assessment: Do you want to hurt yourself or someone else? Patient reports no desire to harm self or others. Onset of symptoms was September 11, 2019. 06:57 [facility] Of Ar[facility]: [facility] 06:57 Acuity: [place] 3 hb Historical: - Allergies: 07:02 Phenergan; hb - Home Meds: 07:02 None [Active]; hb - PMHx: 07:02 Kidney stones; Sleep Apnea; hb - PSHx: 07:02 Appendectomy; Cholecystectomy; Lithotripsy; hb - Immunization history:: Adult Immunizations up to date. - Social history:: Smoking status: Patient reports the use of cigarette tobacco products, smokes 1.5 packs per day. Screenin:15 Abuse screen: Denies threats or abuse. Nutritional screening: No deficits noted. em Tuberculosis screening: No symptoms or risk factors identified. Fall Risk None identified. Assessment: 07:15 General: Appears in no apparent distress. uncomfortable, Behavior is calm, cooperative, em appropriate for age, Denies fever. Pain: Complains of pain in mid-sternal area Pain does not radiate. Quality of pain is described as sharp, stabbing, Pain began last night. Neuro: Level of Consciousness is awake, alert, obeys commands, Oriented to person, place, time, situation, Appropriate for age. Cardiovascular: Reports chest pain, Capillary refill < 3 seconds Patient's skin is warm and dry. Rhythm is sinus rhythm. Respiratory: Airway is patent Respiratory effort is even, unlabored, Respiratory pattern is regular, symmetrical, Denies cough, shortness of breath. GI: Abdomen is obese. Derm: Skin is intact, is healthy with good turgor, Skin is pink, warm \T\ dry. Musculoskeletal: Capillary refill < 3 seconds, Range of motion: intact in all extremities. 08:00 Reassessment: Patient appears in no apparent distress at this time. Patient and/or em family updated on plan of care and expected duration. Pain level reassessed. Patient is alert, oriented x 3, equal unlabored respirations, skin warm/dry/pink. Patient states feeling better. 09:00 Reassessment: Patient appears in no apparent distress at this time. Patient and/or em family updated on plan of care and expected duration. Pain level reassessed. Patient is alert, oriented x 3, equal unlabored respirations, skin warm/dry/pink. 10:16 Reassessment: Patient appears in no apparent distress at this time. Patient and/or em family updated on plan of care and expected duration. Pain level reassessed. Patient is alert, oriented x 3, equal unlabored respirations, skin warm/dry/pink. 12:15 Reassessment: Patient appears in no apparent distress at this time. Patient and/or em family updated on plan of care and expected duration. Pain level reassessed. Patient is alert, oriented x 3, equal unlabored respirations, skin warm/dry/pink. Vital Signs: 06:57 BP 123 / 80; Pulse 90; Resp 18; Temp 97.9; Pulse Ox 98% on R/A; Weight 190.06 kg; hb Height 6 ft. 4 in. (193.04 cm); Pain 8/10; 07:45 BP 135 / 77; Pulse 87; Resp 20; Pulse Ox 97% on R/A; Pain 0/10; em 09:00 BP 129 / 59; Pulse 66; Resp 16; Pulse Ox 98% on R/A; em 10:16 BP 140 / 72; Pulse 67; Resp 19; Pulse Ox 97% on R/A; em 12:15 BP 131 / 70; Pulse 64; Resp 16; Pulse Ox 99% on R/A; em 06:57 Body Mass Index 51.00 (190.06 kg, 193.04 cm) hb ED Course: 06:51 Patient arrived in ED. cl3 06:53 Yannick Sneed PA is PHCP. jmm 06:53 James Harding MD is Attending Physician. jmm 07:02 Triage completed. hb 07:02 Arm band placed on. hb 07:08 Jacques Bryant, RN is Primary Nurse. em 07:15 Patient has correct armband on for positive identification. Bed in low position. Call em light in reach. Side rails up X2. monitoring manager on. Pulse ox on. NIBP on. 07:15 Patient maintains SpO2 saturation greater than 95% on room air. em 07:41 XRAY Chest (1 view) In Process Unspecified. EDMS 09:34 CT Chest For PE Angio In Process Unspecified. EDMS 12:37 No provider procedures requiring assistance completed. IV discontinued, intact, em bleeding controlled, No redness/swelling at site. Pressure dressing applied. Administered Medications: 07:15 Drug: Zofran (Ondansetron) 4 mg Route: IVP; Site: right antecubital; em 07:59 Follow up: Response: No adverse reaction em 07:17 Drug: morphine 4 mg Route: IVP; Site: right antecubital; em 07:59 Follow up: Response: No adverse reaction; Marked relief of symptoms; Pain is decreased; em RASS: Alert and Calm (0) 10:21 Drug: Ketorolac 30 mg Route: IVP; Site: right antecubital; em 12:40 Follow up: Response: No adverse reaction em Outcome: 12:04 Discharge ordered by . jmm 12:38 Discharged to home ambulatory. em 12:38 Condition: good 12:38 Discharge instructions given to patient, Instructed on discharge instructions, follow up and referral plans. medication usage, Demonstrated understanding of instructions, follow-up care, medications, Prescriptions given X 2. 12:40 Patient left the ED. em Signatures: Dispatcher [employer] Yannick Torrez PA PA jmm Munoz, Edgar, RN RN Susie Fabian RN RN Diann Mitchell cl3
[2019-09-12 12:47] VITALS: TEMP 97.9
[2019-09-12 12:52] VITALS: BP 131/70; O2SAT 99
--- NOTE | 2019-09-13 06:27 | EKG ---
Test Date: 2019-09-12 Test Time: 06:58:38 Air Gun Operator: STACI MEASUREMENT RESULTS: Intervals: Rate: 88 OK: 172 QRSD: 80 QT: 346 QTc: 418 [place]: P: 40 OK: 172 QRS: 53 T: 53 INTERPRETIVE STATEMENTS: Normal sinus rhythm Septal infarct, age undetermined Abnormal ECG Compared to ECG 08/22/2018 07:22:45 Myocardial infarct finding now present Electronically Signed On 09-13-19 06:24:37 CDT by Lm Clark
--- NOTE | 2019-09-13 06:27 | EKG ---
Test Date: 2019-09-12 Test Time: 06:56:24 Writer: STACI MEASUREMENT RESULTS: Intervals: Rate: 95 ND: 162 QRSD: 74 QT: 460 QTc: 578 [place]: P: 40 ND: 162 QRS: 58 T: 29 INTERPRETIVE STATEMENTS: Poor data quality, interpretation may be adversely affected Normal sinus rhythm Prolonged QT Abnormal ECG Compared to ECG 08/22/2018 07:22:45 Prolonged QT interval now present Electronically Signed On 09-13-19 06:24:38 CDT by Lm Clark
== END 2019-09-12 12:40 | disposition home or self-care (01) ==
LOC: ER 06:49
DX: D17.1 Benign lipomatous neoplasm of skin and subcutaneous tissue of trunk (principal); F17.210 Nicotine dependence, cigarettes, uncomplicated; Z88.8 Allergy status to other drugs, medicaments and biological substances
CPT/HCPCS: 93005 ×2; 85025; 80048; 36415; 83735; 85610; 85379; 80076; 84484 ×2; 83880; 71275; 71045; 96375; 96374; 99285; Q9967; J2405

== ENCOUNTER 2020-01-31 06:45 | Emergency (ER) | payer OTHER, SELFPAY ==
--- OUTSIDE RECORDS SUMMARY | 2020-01-31 06:47 | XMS REPORT | Continuity of Care Document ---
:1985 Author Organization [facility] t Address [address] [place] [address] Dr. Atkinson. [address] [place] [address] Care Team Providers Name Role Phone Alex Rahman MD Attending Clinician Problems This patient has no known problems. Allergies, Adverse Reactions, Alerts This patient has no known allergies or adverse reactions. Medications This patient has no known medications. Procedures This patient has no known procedures. Encounters Start End Encounter Admission Attending Care Care Encounter Source Date/Time Date/Time Type Type Clinicians Facility Department ID 2019-09-12 2019-09-13 Emergency HECTOR Rahman [id number] 22:58:32 01:47:00 [place] [id number] [place] [id number] [place] [id number] Results This patient has no known results.
[2020-01-31] MEDS ORDERED: NA CHLORIDE 0.9% 1,000 ML ONE (07:46)
[2020-01-31] MEDS ORDERED: LEVALBUTEROL 1.25 MG/3 ML NEB ONE (07:46)
[2020-01-31] MEDS ORDERED: METHYLPREDNISOLONE 125 MG INJ ONE (07:46)
[2020-01-31 07:58] LABS: Absolute Lymphocytes (CBC) 2.3 K/uL (0.7-4.9); Basophils % 0.7 % (0-1.3); Lymphocytes % 22.2 % (15.3-44.8); MPV 8.2 fL (7.6-11.3); RBC Red Blood Cell Count 5.16 M/uL (4.33-5.43)
--- NOTE | 2020-01-31 09:13 | RAD REPORT ---
EXAM DESCRIPTION: RAD - Chest Single View - 01/31/2020 8:33 am CLINICAL HISTORY: COUGH COMPARISON: Portable September 12, 2019 TECHNIQUE: AP portable chest image was obtained 01/31/2020 8:33 am . FINDINGS: No mass, consolidation or pulmonary edema. All lung markings are accentuated by body habit us and portable neck. A new or progressive lung parenchymal process is not seen. Minimal interstitial edema or infiltrate cannot be entirely excluded due to the limitations of the study. Heart and vasculature are normal. No measurable pleural effusion and no pneumothorax. No acute bony abnormality seen. No acute aortic findings suspected. IMPRESSION: As detailed above, no acute cardiopulmonary finding seen. No significant change from com parison.
--- NOTE | 2020-01-31 09:20 | ER ---
Nurse's Notes [facility] Name: Dhiraj Peguero Age: 34 yrs Sex: Male : 1985 Arrival Date: 01/31/2020 Time: 06:47 Bed 5 Private MD: Diagnosis: Cough;Bronchitis, not specified as acute or chronic Presentation: 01/30 07:15 Chief complaint: Patient states: "I was diagnosed with Flu A last Wednesday, and today ss I started feeling better this morning. I went to work and I don't know if it was the cold weather or not, but I started sweating, then coughing again and now I have a headache." Pt was tested for COVID-19 as well a week ago which was negative. Coronavirus screen: Client denies travel out of the [place] in the last 14 days. cough unrelated to allergies, headache, shortness of breath. Ebola Screen: Patient denies exposure to infectious person. Patient denies travel to an Ebola-affected area in the 21 days before illness onset. Initial Sepsis Screen: Does the patient meet any 2 criteria? No. Patient's initial sepsis screen is negative. Does the patient have a suspected source of infection? No. Patient's initial sepsis screen is negative. Risk Assessment: Do you want to hurt yourself or someone else? Patient reports no desire to harm self or others. Onset of symptoms was January 31, 2020. 07:15 Method Of Arrival: Ambulatory ss 07:15 Acuity: JUAN DIEGO 2 ss Triage Assessment: 07:48 Respiratory: Onset: The symptoms/episode began/occurred "this past Wednesday", the tw2 patient has moderate shortness of breath. Historical: - Allergies: 07:21 Phenergan; ss - PMHx: 07:21 Kidney stones; Sleep Apnea; ss - PSHx: 07:21 Appendectomy; Cholecystectomy; Lithotripsy; ss - Immunization history:: Adult Immunizations unknown. - Social history:: Smoking status: Patient denies any tobacco usage or history of. Smoking status: Patient reports the use of cigarette tobacco products, smokes one pack cigarettes per day. - Family history:: not pertinent. - Hospitalizations: : No recent hospitalization is reported. Screenin:21 Abuse screen: Denies threats or abuse. Denies injuries from another. Nutritional ss screening: No deficits noted. Tuberculosis screening: Never had TB. 07:46 Fall Risk None identified. tw2 Assessment: 07:40 General: Appears in no apparent distress. obese, Behavior is calm, cooperative, tw2 appropriate for age, Reports "i had been trying to take a Claritin to help me when the weather first got cold, it helped the first day but not the others". Pain: Denies pain. Neuro: Level of Consciousness is awake, alert, obeys commands, Oriented to person, place, time, situation. Cardiovascular: Heart tones S1 S2 Patient's skin is warm and dry. Rhythm is regular. Respiratory: Reports shortness of breath at rest on exertion cough that is Airway is patent Respiratory effort is even, unlabored, Respiratory pattern is regular, tachypnea Breath sounds are diminished bilaterally. GI: Abdomen is round non-distended, obese, Bowel sounds present X 4 quads. : No signs and/or symptoms were reported regarding the genitourinary system. EENT: Reports nasal congestion nasal discharge. Derm: Skin is moist, Skin temperature is warm Reports "have the sweats". Musculoskeletal: Range of motion: intact in all extremities. 08:38 Reassessment: Patient appears in no apparent distress at this time. No changes from tw2 previously documented assessment. Patient and/or family updated on plan of care and expected duration. Pain level reassessed. pt states "i feel like it is just still right here in my chest rattling", provider notified. 09:28 Reassessment: Patient appears in no apparent distress at this time. No changes from tw2 previously documented assessment. Patient and/or family updated on plan of care and expected duration. Pain level reassessed. Patient is alert, oriented x 3, equal unlabored respirations, skin warm/dry/pink. Vital Signs: 07:15 BP 163 / 91; Pulse 93; Resp 32; Temp 98.5(O); Pulse Ox 99% on R/A; Weight 181.44 kg; ss Height 6 ft. 4 in. (193.04 cm); 07:43 BP 156 / 89; Pulse 74; Resp 22; Pulse Ox 100% on Nebulizer Mask; tw2 08:39 BP 155 / 79; Pulse 77; Resp 20; Pulse Ox 97% on R/A; tw2 09:15 BP 154 / 64; Pulse 79; Resp 19; Pulse Ox 100% on R/A; tw2 07:15 Body Mass Index 48.69 (181.44 kg, 193.04 cm) ED Course: 06:47 Patient arrived in ED. cl3 07:04 Daryl Chew MD is Attending Physician. rn 07:16 Janette Mccormick RN is Primary Nurse. tw2 07:21 Triage completed. ss 07:21 Arm band placed on right wrist. 07:39 Initial lab(s) drawn, by il, sent to lab. Inserted saline lock: 22 gauge in right 5 forearm, using aseptic technique. Blood collected. 07:40 Patient has correct armband on for positive identification. Bed in low position. Call [facility] light in reach. Side rails up X2. surveillance system monitor on. Pulse ox on. NIBP on. 07:41 CBC with Diff Sent. mh5 07:41 Basic Metabolic Panel Sent. mh5 07:41 Procalcitonin Sent. mh5 08:33 XRAY Chest (1 view) In Process Unspecified. EDMS 09:28 No provider procedures requiring assistance completed. IV discontinued, intact, tw2 bleeding controlled, No redness/swelling at site. Pressure dressing applied. Administered Medications: 07:40 Drug: SOLU-Medrol 125 mg Route: IVP; Site: right forearm; tw2 08:39 Follow up: Response: No adverse reaction tw2 07:40 Drug: NS 0.9% 1000 ml Route: IV; Rate: 1000 ml; Site: right forearm; tw2 09:15 Follow up: Response: No adverse reaction; IV Status: Completed infusion; IV Intake: tw2 1000ml 07:42 Drug: Xopenex (3) 1.25 mg Route: Inhalation; tw2 Intake: 09:15 IV: 1000ml; Total: 1000ml. tw2 Outcome: 09:19 Discharge ordered by . rn 09:28 Patient left the ED. tw2 09:28 Discharged to home ambulatory. tw2 09:28 Condition: stable 09:28 Discharge instructions given to patient, Instructed on discharge instructions, follow up and referral plans. medication usage, Demonstrated understanding of instructions, follow-up care, medications, Prescriptions given X 3. Signatures: Dispatcher [employer] EDPR Daryl Chew MD MD rn Smirch, Shelby, RN RN Janette Mccormick RN RN tw2 Penelope Munson 5 Diann Cadena cl3 Corrections: (The following items were deleted from the chart) 07:47 07:40 General: Appears in no apparent distress. obese, Behavior is calm, cooperative, tw2 appropriate for age, tw2
--- NOTE | 2020-01-31 09:21 | EDPHYS ---
Physician Documentation [facility] Name: Dhiraj Peguero Age: 34 yrs Sex: Male : 1985 Arrival Date: 01/31/2020 Time: 06:47 Bed 5 Private MD: ED Physician Daryl Chew HPI: 01/30 07:13 This 34 yrs old Male presents to ER via Unassigned with complaints of Sweats, rn Shortness Of Breath. 07:13 The patient has shortness of breath at rest, with light activity. Onset: The rn symptoms/episode began/occurred 1 week(s) ago. Duration: The symptoms are intermittent. The patient's shortness of breath is aggravated by exertion, light activity, talking, walking. Severity of symptoms: At their worst the symptoms were moderate in the emergency department the symptoms are unchanged. The patient has not experienced similar symptoms in the past. The patient has been recently seen by a physician:. Reports diagnosed last week with flu A, COVID neg x 2, was feeling a little better, went back to work today, was outside in cold, started to feel chills, sweating, and sob. + non-productive cough. + smoker. NO hx of dvt/PE. No trauma. . Historical: - Allergies: 07:21 Phenergan; ss - PMHx: 07:21 Kidney stones; Sleep Apnea; ss - PSHx: 07:21 Appendectomy; Cholecystectomy; Lithotripsy; ss - Immunization history:: Adult Immunizations unknown. - Social history:: Smoking status: Patient denies any tobacco usage or history of. Smoking status: Patient reports the use of cigarette tobacco products, smokes one pack cigarettes per day. - Family history:: not pertinent. - Hospitalizations: : No recent hospitalization is reported. ROS: 07:13 Constitutional: Negative for fever, and weight loss, Eyes: Negative for injury, pain, rn redness, and discharge, Cardiovascular: Negative for chest pain, palpitations, and edema, Respiratory: + sob and cough Abdomen/GI: Negative for abdominal pain, nausea, vomiting, diarrhea, and constipation, MS/Extremity: Negative for injury and deformity, Skin: Negative for injury, rash, and discoloration, Neuro: Negative for numbness, tingling, and seizure. Exam: 07:13 Constitutional: This is a well developed, well nourished patient who is awake, alert, staff rn to room without assistance. Head/Face: Normocephalic, atraumatic. ENT: No stridor, dry MM Cardiovascular: Tachycardic, regular Respiratory: + tachypnea, diminished bilateral bases Abdomen/GI: soft, non-tender Skin: Warm, dry MS/ Extremity: Pulses equal, no cyanosis. Neuro: Awake and alert, GCS 15 Vital Signs: 07:15 BP 163 / 91; Pulse 93; Resp 32; Temp 98.5(O); Pulse Ox 99% on R/A; Weight 181.44 kg; ss Height 6 ft. 4 in. (193.04 cm); 07:43 BP 156 / 89; Pulse 74; Resp 22; Pulse Ox 100% on Nebulizer Mask; tw2 08:39 BP 155 / 79; Pulse 77; Resp 20; Pulse Ox 97% on R/A; tw2 09:15 BP 154 / 64; Pulse 79; Resp 19; Pulse Ox 100% on R/A; tw2 07:15 Body Mass Index 48.69 (181.44 kg, 193.04 cm) ss MDM: 07:04 Patient medically screened. rn 09:13 Differential diagnosis: Bronchitis pneumonia, Pneumothorax reactive airway disease. rn Data reviewed: vital signs, nurses notes, lab test result(s), radiologic studies, plain films, and as a result, I will discharge patient. Counseling: I had a detailed discussion with the patient and/or guardian regarding: the historical points, exam findings, and any diagnostic results supporting the discharge/admit diagnosis, lab results, radiology results, the need for outpatient follow up, to return to the emergency department if symptoms worsen or persist or if there are any questions or concerns that arise at home. Response to treatment: the patient's symptoms have mildly improved after treatment, and as a result, I will discharge patient. Special discussion: I discussed with the patient/guardian in detail that at this point there is no indication for admission to the hospital. It is understood, however, that if the symptoms persist or worsen the patient needs to return immediately for re-evaluation. ED course: No oxygen requirement, stable vitals, neg COVID x 2, porbably just getting over flu, no pneumonia or pneumothorax. Will dc home with steroids/inhaler/zithromax and return precautions. 09:19 Test interpretation: by ED physician or midlevel provider: plain radiologic studies, rn CXR negative for pneumonia or pneumothorax. 09:21 Counseling: I had a detailed discussion with the patient and/or guardian regarding: rn smoking cessation. 01/30 07:12 Order name: CBC with Diff; Complete Time: 08:55 rn 01/30 07:12 Order name: Basic Metabolic Panel; Complete Time: 08:55 rn 01/30 07:12 Order name: XRAY Chest (1 view); Complete Time: 09:18 rn 01/30 07:12 Order name: Procalcitonin; Complete Time: 08:55 rn 01/30 07:12 Order name: IV Start; Complete Time: 07:41 rn Administered Medications: 07:40 Drug: SOLU-Medrol 125 mg Route: IVP; Site: right forearm; tw2 08:39 Follow up: Response: No adverse reaction tw2 07:40 Drug: NS 0.9% 1000 ml Route: IV; Rate: 1000 ml; Site: right forearm; tw2 09:15 Follow up: Response: No adverse reaction; IV Status: Completed infusion; IV Intake: tw2 1000ml 07:42 Drug: Xopenex (3) 1.25 mg Route: Inhalation; tw2 Disposition: 01/31/20 09:19 Discharged to Home. Impression: Cough, Bronchitis, not specified as acute or chronic. - Condition is Stable. - Discharge Instructions: Acute Bronchitis, Adult, Cough, Adult. - Prescriptions for Prednisone 20 mg Oral Tablet - take 3 tablet by ORAL route once daily for 5 days; 15 tablet. Zithromax Z- Elie 250 mg Oral Tablet - take 1 tablet by ORAL route as directed for 5 days Day 1 - take two (2) tablets one time. Day 2, 3, 4 , 5 take one (1) tablet once daily.; 6 tablet. Albuterol Sulfate 90 mcg/actuation - inhale 1-2 puff by INHALATION route every 4-6 hours; 1 Inhaler. - Medication Reconciliation Form, Thank You Letter, Antibiotic Education, Prescription Opioid Use, Work release form form. - Follow up: Private Physician; When: As needed; Reason: Recheck today's complaints, Re-evaluation by your physician. - Problem is an ongoing problem. - Symptoms have improved. Signatures: Dispatcher [employer] EDMS Daryl Chew MD MD rn Smirch, Shelby, RN RN ss Janette Mccormick RN RN tw2 Corrections: (The following items were deleted from the chart) 09: 09:19 01/31/2020 09:19 Discharged to Home. Impression: Cough; Bronchitis, not specified tw2 as acute or chronic. Condition is Stable. Forms are Medication Reconciliation Form, Thank You Letter, Antibiotic Education, Prescription Opioid Use. Follow up: Private Physician; When: As needed; Reason: Recheck today's complaints, Re-evaluation by your physician. Problem is an ongoing problem. Symptoms have improved. rn
[2020-01-31 10:04] VITALS: TEMP 98.5
[2020-01-31 10:09] VITALS: BP 154/64; O2SAT 100
== END 2020-01-31 09:28 | disposition home or self-care (01) ==
LOC: ER 06:45
DX: J40 Bronchitis, not specified as acute or chronic (principal); F17.210 Nicotine dependence, cigarettes, uncomplicated; Z88.8 Allergy status to other drugs, medicaments and biological substances
CPT/HCPCS: 96361; 85025; 80048; 36415; 84145; 71045; 96374; 99285; J7030; J2930

== ENCOUNTER 2020-10-21 10:53 | Emergency (ER) | payer OTHER, SELFPAY ==
--- OUTSIDE RECORDS SUMMARY | 2020-10-21 10:56 | XMS REPORT | Continuity of Care Document ---
:1985 Author Organization [facility] t Address [address] [place] [address] Care Team Providers Name Role Phone Alex [...] Department ID 2019-09-12 2019-09-13 Emergency HECTOR Rahman [phone] [id number] 22:58:32 01:47:00 Edenilson Broderick [id number] [place] [id number] [place] [id number] [id number] Results This patient has no known results.
--- NOTE | 2020-10-21 13:18 | RAD REPORT ---
EXAM DESCRIPTION: CT - Thorax Wo Con - 10/21/2020 12:43 pm CLINICAL HISTORY: lower right anterior rib pain COMPARISON: Chest For Pe Angio dated 09/12/2019 TECHNIQUE: Axial 5 mm thick images of the chest were obtained without IV contrast. All CT scans are performed using dose optimization technique as appropriate and may include automated exposure control or mA/KV adjustment according to patient size. FINDINGS: No mass or infiltrate in the lung parenchyma. No pleural thickening or pleural effusion. N o pneumothorax. No abnormal mediastinal or hilar masses or lymphadenopathy seen. A few nonspecific mediastinal lymph nodes are present similar to comparison. No cardiomegaly or pericardial effusion. Aorta and pulmonary arterial tree assessment is very limited in the absence of contrast. No chest wall hematoma or mass. No skeletal muscle abnormality identifiable. Patient has a large 18 x 15 centimeter fatty mass of th e posterior right upper back. There is a trace amount of stranding in the midportion of this fatty ma ss which has not changed size or imaging characteristics. Benign etiology is favored but not definiti ve. A 15 millimeter subcutaneous solid mass of the left upper back has not changed. This is a nonspec ific finding. No rib fracture or pathologic bone process identifiable. IMPRESSION: Noncontrast CT chest imaging shows no acute finding. Above detailed findings are similar to the August 2019 study.
--- NOTE | 2020-10-21 13:22 | RAD REPORT ---
EXAM DESCRIPTION: RAD - Chest Pa And Lat (2 Views) - 10/21/2020 1:02 pm CLINICAL HISTORY: CHEST PAIN COMPARISON: Portable chest January 2020 TECHNIQUE: Frontal and lateral views of the chest were obtained. FINDINGS: The lungs are clear. Interstitial pattern matches comparison. Heart size is normal and ce ntral vasculature is within normal limits. No pleural effusion or pneumothorax seen. No acute bony finding noted. No aortic abnormality. IMPRESSION: No acute cardiopulmonary process.
--- NOTE | 2020-10-22 17:22 | EDPHYS ---
Physician Documentation [facility] Name: Dhiraj Peguero Age: 35 yrs Sex: Male : 1985 Arrival Date: 10/21/2020 Time: 10:55 Bed DX2 Private MD: ED Physician Daryl Chew HPI: 10/21 12:46 This 35 yrs old Male presents to ER via Ambulatory with complaints of Rib rn Pain. 12:46 This 35 yrs old Male presents to ER via Ambulatory with complaints of Rib rn Pain. 12:46 The patient or guardian reports chest pain that is located primarily in the anterior rn chest wall, right. The pain does not radiate. Associated signs and symptoms: The patient has no apparent associated signs or symptoms, Pertinent negatives: abdominal pain, cough, diaphoresis, lower extremity swelling, near syncope, palpitations, recent travel, shortness of breath, syncope, vomiting. 12:47 The chest pain is described as sharp, stabbing. Duration: The patient or guardian rn reports multiple episodes, that are intermittent. Modifying factors: The symptoms are alleviated by remaining still, rest, the symptoms are aggravated by deep breath, movement, palpation of area. Severity of pain: At its worst the pain was moderate in the emergency department the pain is unchanged. The patient has experienced a previous episode. The patient has not recently seen a physician. Patient reports yesterday was stretching got an abdominal cramp then heard a pop, isolates pain to right anterior lower ribs, hurts to touch and take a deep breath. Reports has broken a rib in the past and feels similar. Denies fever cough or shortness of breath. No recent illness. Denies abdominal pain, vomiting, diarrhea.. Historical: - Allergies: 11:24 Phenergan; vg1 - Home Meds: 11:24 None [Active]; vg1 - PMHx: 11:24 Kidney stones; Sleep Apnea; vg1 - PSHx: 11:24 Appendectomy; Cholecystectomy; vg1 - Immunization history:: Adult Immunizations up to date. - Social history:: Smoking status: Patient reports the use of cigarette tobacco products, smokes one pack cigarettes per day. - Family history:: not pertinent. - Hospitalizations: : No recent hospitalization is reported. ROS: 12:47 Constitutional: Negative for fever, chills, and weight loss, Eyes: Negative for injury, rn pain, redness, and discharge, ENT: Negative for injury, pain, and discharge, Neck: Negative for injury, pain, and swelling, Cardiovascular: Negative for palpitations, and edema, Respiratory: Negative for shortness of breath, cough, wheezing Abdomen/GI: Negative for abdominal pain, nausea, vomiting, diarrhea, and constipation, Back: Negative for injury and pain, MS/Extremity: Negative for injury and deformity, Skin: Negative for injury, rash, and discoloration, Neuro: Negative for headache, weakness, numbness, tingling, and seizure. Exam: 12:47 Constitutional: Overweight male no acute distress Head/Face: Normocephalic, rn atraumatic. Eyes: Periorbital areas with no swelling, redness, or edema. Chest/axilla: Positive tenderness along costal margin on right side, no crepitus Cardiovascular: Regular rate and rhythm. No pulse deficits. Respiratory: Patient speaking full sentences, unlabored. Positive pain to the right lower chest with deep breath. No increased work of breathing, no retractions or nasal flaring. Abdomen/GI: Soft, non-tender Skin: Warm, dry MS/ Extremity: Pulses equal, no cyanosis. Neurovascular intact. Full, normal range of motion. Equal circumference. Neuro: Awake and alert, GCS 15 Vital Signs: 11:21 BP 133 / 83; Pulse 80; Resp 18; Temp 98.1; Pulse Ox 100% ; Weight 193.23 kg; Height 6 vg1 ft. 4 in. (193.04 cm); Pain 10/10; 12:35 BP 134 / 54; Pulse 73; Resp 20; Pulse Ox 95% on R/A; vg1 13:48 BP 130 / 60; Pulse 70; Resp 18; Pulse Ox 96% on R/A; vg1 11:21 Body Mass Index 51.85 (193.23 kg, 193.04 cm) vg1 MDM: 12:26 Patient medically screened. rn 13:34 Differential diagnosis: chest wall pain, costochondritis, pleurisy, pneumothorax. Data rn reviewed: vital signs, nurses notes, radiologic studies, CT scan, plain films, and as a result, I will discharge patient. Counseling: I had a detailed discussion with the patient and/or guardian regarding: the historical points, exam findings, and any diagnostic results supporting the discharge/admit diagnosis, radiology results, the need for outpatient follow up, to return to the emergency department if symptoms worsen or persist or if there are any questions or concerns that arise at home. Response to treatment: There is no appreciated change of the patient's symptoms at this time, and as a result, I will discharge patient. Special discussion: I discussed with the patient/guardian in detail that at this point there is no indication for admission to the hospital. It is understood, however, that if the symptoms persist or worsen the patient needs to return immediately for re-evaluation. ED course: Chest x-ray and CT chest does not show any acute pathology or rib fractures, will DC home with return precautions. Patient gives story of mechanical injury and pain with reproducibility with palpation.. 10/21 11:20 Order name: XRAY Chest Pa And Lat (2 Views); Complete Time: 13:29 rn 10/21 12:32 Order name: CT Chest Wo Con; Complete Time: 13:29 rn Administered Medications: No medications were administered Disposition Summary: 10/21/20 13:37 Discharge Ordered Location: Home rn Problem: new rn Symptoms: have improved rn Condition: Stable rn Diagnosis - Chest pain, unspecified - Chest wall rn Followup: rn - With: Private Physician - When: As needed - Reason: Recheck today's complaints, Re-evaluation by your physician Discharge Instructions: - Discharge Summary Sheet rn - Nonspecific Chest Pain, Adult rn - Chest Wall Pain rn Forms: - Medication Reconciliation Form rn - Thank You Letter rn - Antibiotic paper pattern inspector - Prescription Opioid Use rn - Work release form vg1 Signatures: Dispatcher [employer] Daryl Santoro MD MD rn Garcia, Victoria, RN RN vg1
--- NOTE | 2020-10-22 17:22 | ER ---
Nurse's Notes [facility] Name: Dhiraj Peguero Age: 35 yrs Sex: Male : 1985 Arrival Date: 10/21/2020 Time: 10:55 Bed DX2 Private MD: Diagnosis: Chest pain, unspecified-Chest wall Presentation: 10/21 11:21 Chief complaint: Patient states: "Yesterday I was stretching and a cramp hit on the vg1 Right side of my rib and then I heard a crack. I can feel a knot in the area as well. And when I take a deep breath it hurts." Pt denies any falls or injury to location. Coronavirus screen: Client denies travel out of the [place] in the last 14 days. Ebola Screen: Patient negative for fever greater than or equal to 101.5 degrees Fahrenheit, and additional compatible Ebola Virus Disease symptoms. Initial Sepsis Screen: Does the patient meet any 2 criteria? No. Patient's initial sepsis screen is negative. Risk Assessment: Do you want to hurt yourself or someone else? Patient reports no desire to harm self or others. Onset of symptoms was October 21, 2020. 11:21 Method Of Arrival: Ambulatory 1 11:21 Acuity: JUAN DIEGO 4 vg1 12:36 Initial Sepsis Screen: Does the patient have a suspected source of infection? No. vg1 Patient's initial sepsis screen is negative. Triage Assessment: 11:24 General: Appears in no apparent distress. uncomfortable, Behavior is calm, cooperative. vg1 Pain: Complains of pain in Lower right side of ribs. Historical: - Allergies: 11:24 Phenergan; vg1 - Home Meds: 11:24 None [Active]; vg1 - PMHx: 11:24 Kidney stones; Sleep Apnea; vg1 - PSHx: 11:24 Appendectomy; Cholecystectomy; vg1 - Immunization history:: Adult Immunizations up to date. - Social history:: Smoking status: Patient reports the use of cigarette tobacco products, smokes one pack cigarettes per day. - Family history:: not pertinent. - Hospitalizations: : No recent hospitalization is reported. Screenin:25 Abuse screen: Denies threats or abuse. Nutritional screening: No deficits noted. vg1 Tuberculosis screening: No symptoms or risk factors identified. Fall Risk No fall in past 12 months (0 pts). No secondary diagnosis (0 pts). No IV (0 pts). Ambulatory Aid- None/Bed Rest/Nurse Assist (0 pts). Gait- Normal/Bed Rest/Wheelchair (0 pts) Mental Status- Oriented to own ability (0 pts). Total Garrido Fall Scale indicates No Risk (0-24 pts). Assessment: 12:23 General: Appears in no apparent distress. uncomfortable, Behavior is calm, cooperative. vg1 Pain: Complains of pain in Lower right side of rib Pain currently is 10 out of 10 on a pain scale. Pain began 1 day ago. Neuro: Level of Consciousness is awake, alert, obeys commands, Oriented to person, place, time, situation. Cardiovascular: Patient's skin is warm and dry. Respiratory: Reports pain with respiration Airway is patent Respiratory effort is even, unlabored, Breath sounds are clear bilaterally. GI: No signs and/or symptoms were reported involving the gastrointestinal system. : No signs and/or symptoms were reported regarding the genitourinary system. EENT: No signs and/or symptoms were reported regarding the EENT system. Derm: Skin is intact, is healthy with good turgor, No bruising on Lower Right side of rib. Musculoskeletal: Circulation, motion, and sensation intact. 13:48 Reassessment: Patient appears in no apparent distress at this time. No changes from vg1 previously documented assessment. Patient and/or family updated on plan of care and expected duration. Pain level reassessed. Patient is alert, oriented x 3, equal unlabored respirations, skin warm/dry/pink. Vital Signs: 11:21 BP 133 / 83; Pulse 80; Resp 18; Temp 98.1; Pulse Ox 100% ; Weight 193.23 kg; Height 6 vg1 ft. 4 in. (193.04 cm); Pain 10/10; 12:35 BP 134 / 54; Pulse 73; Resp 20; Pulse Ox 95% on R/A; vg1 13:48 BP 130 / 60; Pulse 70; Resp 18; Pulse Ox 96% on R/A; vg1 11:21 Body Mass Index 51.85 (193.23 kg, 193.04 cm) vg1 ED Course: 10:55 Patient arrived in ED. rg4 11:24 Triage completed. vg1 11:24 Arm band placed on Patient placed in waiting room, Patient notified of wait time. vg1 12:22 Domonique Melchor, RN is Primary Nurse. vg1 12:25 Patient has correct armband on for positive identification. Pt placed in hallway chair. vg1 12:26 Daryl Chew MD is Attending Physician. rn 12:26 Catie Acevedo FNP-C [facility] 12[facility]43 CT Chest Wo Con In Process Unspecified. EDMS 13:02 XRAY Chest Pa And Lat (2 Views) In Process Unspecified. EDMS 13:49 No provider procedures requiring assistance completed. Patient did not have IV access vg1 during this emergency room visit. Administered Medications: No medications were administered Outcome: 13:37 Discharge ordered by . rn 13:49 Discharged to home ambulatory. vg1 13:49 Condition: stable 13:49 Discharge instructions given to patient, Instructed on discharge instructions, follow up and referral plans. Demonstrated understanding of instructions, follow-up care. 13:53 Patient left the ED. vg1 Signatures: Dispatcher [employer] EDMD Catie Acevedo FNP-C FNP-CkDaryl Dueñas MD MD rn Garcia, Rubi rg4 Domonique Melchor RN RN vg1
[2020-10-23 06:56] VITALS: TEMP 98.1
[2020-10-23 07:00] VITALS: BP 130/60; O2SAT 96
== END 2020-10-21 13:53 | disposition home or self-care (01) ==
LOC: ER 10:53
DX: R07.89 Other chest pain (principal); F17.210 Nicotine dependence, cigarettes, uncomplicated; Z88.8 Allergy status to other drugs, medicaments and biological substances
CPT/HCPCS: 71046; 71250

== ENCOUNTER 2021-03-03 09:58 | Emergency (ER) | payer OTHER ==
--- OUTSIDE RECORDS SUMMARY | 2021-03-03 10:02 | XMS REPORT | Continuity of Care Document ---
:1985 Author Organization [facility] t Address [address] [place] [address] Care Team Providers Name Role Phone PCP, DOES NOT HAVE A Primary Care Physician Unavailable Sami Rahman MD Attending Clinician SAMI RAHMAN Attending Clinician Unavailable SAMI RAHMAN Admitting Clinician Unavailable Payers Payer Name Policy Type Policy Number Effective Date Expiration Date S ource Advance Directives Directive Decision Effective Termination Comments Source Date Date Healthcare Agents on N/A Univ ersity FileNameRelationC[facility]al[facility] Agent Medical RelationshipCommunicationThe [facility] Maria G LopezMotherPrimary healthcare [phone] (Mobile) [email or web address] Problems Condition Condition Condition Status Onset Resolution Last Treating Co mments Source Name Details Category Date Date Treatment Clinician Date No known No known Disease Unive rs active active ity of problems problems [facility] Allergies, Adverse Reactions, Alerts Allergy Allergy Status Severity Reaction(s) Onset Inactive Treating Comm ents Source Name Type Date Date Clinician Sasha Dickerson Active Other - See While U nivers zine Hcl ty to comments 08-02 being ity of adverse 00:00: treated [place] reaction 00 for Medical s to kidney Branch drug stones with Dilaudid and Phenergan , patient became unrespons aris. Was told that Phenergan was the cause and to avoid it. PROMETHA DRUG Active Other-Cmnt 2017-0 Univ ers ZINE HCL INGREDI 5-07 ity of 00:00: [place] 00 Medical Branch Social History Social Habit Start Date Stop Date Quantity Comments Source Sex Assigned At Uni versity [facility] Exposure to SARS-CoV-2 Not sure [facility] [place] (event) Medical Branch Smoking Status Start Date Stop Date Source Unknown if ever smoked Universit y [facility] Medications Ordered Filled Start Stop Current Ordering Indication Dosage Frequency Signature Comments Components Source Medication Medication Date Date Medication? Clinician (SIG) Name Name ondansetron 2019-0 2020- No 8mg 8 mg, Slow Univers (ZOFRAN 09-12 IV Push, ity of (PF)) 05:45: 04:54 ONCE, 1 [place] injection 8 00 :00 dose, Wed Med ical mg 09/13/19 at Branch 0045, MARCIA meclizine 2019-0 2020- No 25mg 25 mg, Unive rs (TRAVEL-EAS 09-12 Oral, ity of E 05:45: 04:55 ONCE, 1 [place] (MECLIZINE) 00 :00 dose, Wed Med ical ) tablet 25 09/13/19 at Br anch mg 0045, MARCIA NaCl 0.9% 2019-0 2020- No 1000mL at 999 Uni vers (NS) bolus 09-12 mL/hr, ity of infusion 04:45: 06:39 1,000 mL, Asad as 1,000 mL 00 :00 IV Medical Infusion, Branch ONCE, 1 dose, 09/12/19 at 2345, MARCIA meclizine 2020-0 Yes [id number] 25mg Take 1 U nivers 25 mg 6-17 tablet by ity of tablet 00:00: mouth [place] 00 every 6 Medical (six) Branch hours as needed for Dizziness. ondansetron 2020-0 Yes [id number] 8mg Take 2 Univers 4 mg tablet 6-17 tablets by it y of 00:00: mouth [place] 00 every 8 Medical (eight) Branch hours as needed (Dizziness and/or Nausea). albuterol 2020-0 Yes [id number] 2{puff} Inhale 2 Univers 90 6-17 Puffs ity of mcg/actuati 00:00: every 4 Asad as on inhaler 00 (four) Medical hours as Branch needed for Wheezing or Shortness of Breath. ondansetron 2017- Yes 4mg Take 1 Univ ers (ZOFRAN, 5-07 tablet by ity of HYDROCHLORI 00:00: mouth [place] DE,) 4 mg 00 every 8 Medical tablet (eight) Branch hours as needed for Nausea and Vomiting (N/V). traMADOL 2016- Yes 50mg Take 1 Univers (ULTRAM) 50 5-07 tablet by ity of mg tablet 00:00: mouth [place] 00 every 6 Medical (six) Branch hours as needed for Pain unrelieved by non-narcot ic analgesics . tamsulosin 2017- Yes .4mg Take 1 Unive rs 0.4 mg 24 5-07 capsule by ity of hr capsule 00:00: mouth at Asad as 00 bedtime. Medical Branch ketorolac 2016- Yes 10mg Take 1 Univer s 10 mg 5-07 tablet by ity of tablet 00:00: mouth [place] 00 every 6 Medical (six) Branch hours as needed for Alternate with [place] for pain scale 1-3. Vital Signs Vital Name Observation Time Observation Value Comments Source Systolic blood 2019-09-13 06:00:00 147 mm[Hg] [facility]astolic [facility] 2019-09-13 06:00:00 74 [facility] 2019-09-13 06:00:00 74 /min [facility] Respiratory rate 2019-09-13 06:00:00 26 /min [facility] Oxygen saturation in 2019-09-13 06:00:00 98 /min [facility] Arterial blood by [facility] Pulse oximetry Branch Body temperature 2019-09-13 04:11:00 36.17 Karishma [facility] Body height 2019-09-13 04:10:00 193 cm [facility] Body weight 2019-09-13 04:10:00 190.057 kg [facility] BMI 2019-09-13 04:10:00 51.00 kg/m2 [facility] Systolic blood 2019-09-13 06:00:00 147 mm[Hg] Univer sity [facility] Diastolic blood 2019-09-13 06:00:00 74 mm[Hg] Unive rsity of pressure [facility] Heart rate 2019-09-13 06:00:00 74 /min [facility] Respiratory rate 2019-09-13 06:00:00 26 /min [facility] Oxygen saturation in 2019-09-13 06:00:00 98 /min [facility] Arterial blood by [facility] Pulse oximetry Branch Body temperature 2019-09-13 04:11:00 36.17 Karishma [facility] Body height 2019-09-13 04:10:00 193 cm [facility] Body weight 2019-09-13 04:10:00 190.057 kg [facility] BMI 2019-09-13 04:10:00 51.00 kg/m2 [facility] Procedures Procedure Date / Time Performing Clinician Source Performed LIPASE 2019-09-13 04:55:00 Brie Rahman [facility] TROPONIN I 2019-09-13 04:55:00 Josiah [facility] HEPATIC FUNCTION PANEL 2019-09-13 04:55:00 Brie Rahman [facility] ([id number]) (ALB,T.PRO,BILI [facility] T,BU/BC,ALT,AST,ALK PHOS) BASIC METABOLIC PANEL 2019-09-13 04:55:00 Brie Rahman [facility] (NA, K, CL, CO2, [facility] Branch GLUCOSE, BUN, CREATININE, CA) CBC WITH DIFFERENTIAL 2019-09-13 04:55:00 Brie Rahman [facility] PROTHROMBIN TIME / INR 2019-09-13 04:55:00 Brie Rahman [facility] ACTIVATED PARTIAL 2019-09-13 04:55:00 Brie Rahman [facility] THRMPLAS PAULA [facility] N-TERMINAL PRO-BNP 2019-09-13 04:55:00 Brie Rahman [facility] COVID-19 (ID NOW RAPID 2019-09-13 04:55:00 Brie Rahman [facility] TESTING) [facility] EKG-12 LEAD 2019-09-13 04:42:11 Brie Rahman [facility] ASSIGNMENT OF BENEFITS 2019-09-13 03:57:21 Doctor Unassigned, No [facility] Name Medical Branch NOTICE OF PRIVACY 2019-09-13 03:57:04 Doctor Unassigned, No [facility] PRACTICES Name Medical Branch CONSENT/REFUSAL FOR 2019-09-13 03:56:48 Doctor Unassigned, No [facility] DIAGNOSIS AND TREATMENT Name Medical [place] Encounters Start End Encounter Admission Attending Care Care Encounter Source Date/Time Date/Time Type Type Clinicians Facility Department ID 2019-09-12 2019-09-13 Emergency [facility] [id number] 22:58:32 01:47:00 Brie Broderick [id number] [place] [id number] [place] [id number] [facility] 2019-09-12 2019-09-13 Emergency [facility] [id number] Univers 22:58:32 01:47:00 [id number] [id number] [place] [id number] Branch 2019-09-12 2019-09-13 Emergency X [facility] ERT [id number] Univers 22:58:32 01:47:00 BRIE [facility] Results Test Description Test Time Test Comments Results Result Comments Source Troponin I 2019-09-13 05:29:00 Test Item Value Reference Range Interpretation Comme nts TROPONIN I (test code = <0.012 See_Comment [Au tomated message] The 8266903145) system which ge nerated this result tra nsmitted reference range : <=0.034 ng/mL. The refe rence range was not u sed to interpret this result as normal/abnormal . EVARISTO (test code = EVARISTO) Equal or Less than 0.034 ng/ml---Normal ?Note: Cardiac troponin begins to rise 3-4 hours after the onset of ischemia. Repeat in 4-6 hours if the sample was drawn within 3-4 hours of the onset of the symptom and found normal. Between 0.035 and 0.120 ng/mL--- Borderline. Questionable myocardial injury or necrosis ? ?Note: Serial measurement may be necessary to confirm or exclude the diagnosis of myocardial injury or necrosis; Clinical correlation (symptoms, EKGs, imaging studies, and others) required; Repeat in 4-6 hours if clinically indicated. ? Equal or Higher than 0.121 ng/mL---Abnormal. Myocardial Injury or Necrosis Likely ? Biotin has been reported to cause a negative bias, interpret results relative to patient's use of biotin. ? Lab Interpretation (test Normal code = 71292-2) [facility] [id number] 05:26:00 Test Item Value Reference Range Interpretation Comments NT-proBNP (test code 13 pg/mL See_Comment [Autom ated = 2740212443) message] The system which generated this result transmitted reference range : <=125. The reference range was not used to interpret this result as normal/abnormal . EVARISTO (test code = EVARISTO) Biotin has been reported to cause a negative bias, interpret results relative to patient's use of biotin. Lab Interpretation Normal (test code = 86739-7) [facility] (ID NOW RAPID TESTING)2019-09-13 05:19:00 Test Item Value Reference Range Interpretation Comments SARS-CoV-2 Rapid ID NOW Not Detected Not Detected (test code = 00677-8) EVARISTO (test code = EVARISTO) ID NOW COVID-19 Assay is an isothermal nucleic acid amplification test intended for the qualitative detection of nucleic acid from SARS-CoV-2 viral RNA in nasopharyngeal (POLICE MANAGER) specimens. It is used under Emergency Use Authorization (EUA) by FDA. The limit of detection (LOD) of the assay is 125 Genome Equivalents/mL. A positive result is indicative of the presence of SARS-CoV-2 RNA. ?Clinical correlation with patient history and other diagnostic information is necessary to determine patient infection status. A negative (Not Detected) result does not preclude SARS-CoV-2 infection. In patients with clinical symptoms and other tests that are consistent with SARS-CoV-2 infection, negative results should be treated as presumptive negative and a new specimen should be tested with alternative PCR molecular test. Invalid: Please collect a new specimen for repeat patient testing if clinically indicated. Lab Interpretation Normal (test code = 17515-0) [facility] Metabolic Panel (NA, K, CL, CO2, GLUCOSE, BUN, CREATININE, CA)2019-09-13 05:17:00 Test Item Value Reference Range Interpretation Comments NA (test code = 136 mmol/L 135-145 9400682263) K (test code = 5.3 mmol/L 3.5-5 H 6784384482) CL (test code = 100 mmol/L 98-108 1566369631) CO2 TOTAL (test code = 26 mmol/L 23-31 9731412791) AGAP (test code = 2-16 4459855814) BUN (test code = 11 mg/dL 7-23 4167139710) GLUCOSE (test code = 162 mg/dL 70-110 H 5595268392) CREATININE (test code = 1.18 mg/dL 0.6-1.25 8758776380) CALCIUM (test code = 9.9 mg/dL 8.6-10.6 1182624061) eGFR Calculation mL/min/1.73m2 (Non-) (test code = 5684954013) eGFR Calculation mL/min/1.73m2 () (test code = 8697709538) EVARISTO (test code = EVARISTO) Association of Glomerular Filtration Rate (GFR) and Staging of Kidney Disease* + --+ --+ ------+| GFR (mL/min/1.73 m2) ?| With Kidney Damage ?| ?Without Kidney Damage+ --------+ --------+ +| ?>90 ?| ?Stage one ?| ? Normal ?+ ---+ ---+ -------+| ?60-89 ?| ?Stage two ?| ? Decreased GFR ? + --+ --+ ------+| ?30-59 ?| ?Stage three ?| ? Stage three ? + --+ --+ ------+| ?15-29 ?| ?Stage four ? | ? Stage four ?+ ---+ ---+ -------+| ?<15 (or dialysis) ? ?| ?Stage five ? | ? Stage five ?+ ---+ ---+ -------+ *Each stage assumes the associated GFR level has been in effect for at least three months. ?Stages 1 to 5, with or without kidney disease, indicate chronic kidney disease. Notes: Determination of stages one and two (with eGFR >59mL/min/1.73 m2) requires estimation of kidney damage for at least three months as defined by structural or functional abnormalities of the kidney, manifested by either:Pathological abnormalities or Markers of kidney damage (including abnormalities in the composition of the blood or urine or abnormalities in imaging tests). Lab Interpretation Abnormal (test code = 41720-8) [facility] (ALB, T.PRO, BILI T, BU/BC, ALT, AST, ALK PHOS)2019-09-13 05:17:00 Test Item Value Reference Range Interpretation Comments TOTAL BILI (test code = 1707738325) 0.5 mg/dL 0.1-1.1 BILI UNCON (test code = 8216334561) 0.4 mg/dL 0.1-1.1 BILI CONJ (test code = 1593014566) 0.0 mg/dL 0-0.3 T PROTEIN (test code = 8479911559) 9.2 g/dL 6.3-8.2 H ALBUMIN (test code = 0551134804) 4.9 g/dL 3.5-5 ALK PHOS (test code = 9567664194) 76 U/L 34-122 ALTv (test code = 1742-6) 60 U/L 5-50 H AST(SGOT) (test code = 7929544876) 44 U/L 13-40 H Lab Interpretation (test code = Abnormal 53643-4) [facility] CenterLipase [id number] 05:17:00 Test Item Value Reference Range Interpretation Comments LIPASE (test code = 4593643714) 48 U/L 0-220 Lab Interpretation (test code = Normal 22728-1) [facility] CenteraPTT2020-06-17 05:13:00 Test Item Value Reference Range Interpretation Comments APTT Patient (test See_Comment [Automat ed code = 3173-2) message] The system which generated this result transmitted reference range : 23 - 38 Seconds . The reference range was not used to interpr et this result as normal/abnormal . EVARISTO (test code = EVARISTO) The [facility] patient population mean normal value for aPTT is 30 seconds. Lab Interpretation Normal (test code = 30550-0) [facility] CenterProthrombin Time (PT) / [id number] 05:11:00 Test Item Value Reference Range Interpretation Comments PROTIME PATIENT (test See_Comment [Auto mated message] code = 5964-2) The system wh ich generated this result transmitted ref erence range: 12.0 - 1 4.7 Seconds. The re ference range was not u sed to interpret this result as normal/abnor mal. INR (test code = 6301-6) Nor mal INR <1.1; Warfarin Therap eutic range 2.0 to 3. 0 or 2.5 to 3.5, dep ending upon the indica tions. Lab Interpretation (test Normal code = 78054-3) [facility] WITH [id number] 05:04:00 Test Item Value Reference Range Interpretation Comments WBC (test code = See_Comment H [Automated 0190-2) message] The sy stem which generated this result transmitted reference range : 4.20 - 10.70 10*3/?L. The reference range was not used to interpret this result as normal/abnormal . RBC (test code = See_Comment H [Automated 789-8) message] The sy stem which generated this result transmitted reference range : 4.26 - 5.52 10*6/?L. The reference range was not used to interpret this result as normal/abnormal . HGB (test code = 15.9 g/dL 12.2-16.4 718-7) HCT (test code = 47.6 % 38.4-49.3 4544-3) MCV (test code = 85.8 fL 81.7-95.6 787-2) MCH (test code = 28.6 pg 26.1-32.7 785-6) MCHC (test code = 33.4 g/dL 31.2-35 786-4) RDW-SD (test code = 39.8 fL 38.5-51.6 12060-3) RDW-CV (test code = 12.8 % 12.1-15.4 788-0) PLT (test code = See_Comment H [Automated 777-3) message] The sy stem which generated this result transmitted reference range : 150 - 328 10*3/ ?L. The reference r larisa was not used to interpret this result as normal/abnormal . MPV (test code = 10.3 fL 9.8-13 51589-6) NRBC/100 WBC (test See_Comment [Automat ed code = 0148089268) message] The system which generated this result transmitted reference range : 0.0 - 10.0 /100 WBCs. The refer ence range was not u sed to interpret th is result as normal/abnormal . NRBC x10^3 (test code <0.01 See_Comment [Auto mated = 9313013961) message] The s ystem which generated this result transmitted reference range : 10*3/?L. The reference range was not used to interpret this result as normal/abnormal . GRAN MAT (NEUT) % 83.5 % (test code = 770-8) IMM GRAN % (test code 0.90 % = 7348257455) LYMPH % (test code = 11.4 % 736-9) MONO % (test code = 3.3 % 5905-5) EOS % (test code = 0.6 % 713-8) BASO % (test code = 0.3 % 706-2) GRAN MAT x10^3(ANC) 9.73 10*3/uL 1.99-6.95 H (test code = 5177022429) IMM GRAN x10^3 (test 0.10 10*3/uL 0-0.06 H code = 9558477143) LYMPH x10^3 (test code 1.33 10*3/uL 1.09-3.23 = 731-0) MONO x10^3 (test code 0.38 10*3/uL 0.36-1.02 = 742-7) EOS x10^3 (test code = 0.07 10*3/uL 0.06-0.53 711-2) BASO x10^3 (test code 0.04 10*3/uL 0.01-0.09 = 704-7) Lab Interpretation Abnormal (test code = 54497-0) [facility]"
--- NOTE | 2021-03-03 11:08 | RAD REPORT ---
EXAM DESCRIPTION: RAD - Ankle Left 3 View - 03/03/2021 10:51 am CLINICAL HISTORY: PAIN COMPARISON: No comparisons FINDINGS: Bony fragmentation inferior to the medial and lateral malleolus is present likely related to old trauma. Mild radiocarpal arthritic changes are present. Mild soft tissue swelling is present a bout the ankle. Large posterior calcaneal spur.
--- NOTE | 2021-03-03 11:33 | EDPHYS ---
Physician Documentation [facility] Name: Dhiraj Peguero Age: 36 yrs Sex: Male : 1985 Arrival Date: 03/03/2021 Time: 10:00 Bed Waiting Private MD: ED Physician Yonathan Ruth HPI: 03/03 14:08 This 36 yrs old Male presents to ER via Ambulatory with complaints of Ankle Injury. kb 14:08 The patient presents with pain. The complaints affect the left ankle. Context: The kb problem was sustained at home, resulted from an unknown cause, The patient can fully bear weight on the affected extremity. the patient is able to ambulate. The patient has experienced similar episodes in the past. The patient has not recently seen a physician. 14:08 Onset: The symptoms/episode began/occurred yesterday. Associated signs and symptoms: kb The patient has no apparent associated signs or symptoms. Modifying factors: The symptoms are alleviated by nothing, the symptoms are aggravated by nothing. Severity of symptoms: At their worst the symptoms were moderate, in the emergency department the symptoms are unchanged. Pt reports he has bone fragments in left ankle from a previous injury. States he has pain intermittently that normally goes away within a few hours, but this time the pain has persisted since yesterday. Historical: - Allergies: 10:37 Phenergan; vg1 - PMHx: 10:37 Kidney stones; Sleep Apnea; vg1 - PSHx: 10:37 Appendectomy; Cholecystectomy; vg1 - Immunization history:: Client reports having NOT received the Covid vaccine. - Social history:: Smoking status: Patient reports the use of cigarette tobacco products, smokes two packs cigarettes per day. ROS: 14:07 Constitutional: Negative for fever, chills, and weight loss. kb 14:07 MS/extremity: Positive for injury or acute deformity, pain, of the left lateral malleolus. 14:07 All other systems are negative. Exam: 14:07 Constitutional: This is a well developed, well nourished patient who is awake, alert, kb and in no acute distress. Head/Face: Normocephalic, atraumatic. ENT: Moist Mucous membranes Respiratory: Respirations even and unlabored. No increased work of breathing. Talking in full sentences Skin: Warm, dry with normal turgor. Normal color. Neuro: Awake and alert, GCS 15, oriented to person, place, time, and situation. Moves all extremities. Normal gait. Psych: Awake, alert, with orientation to person, place and time. Behavior, mood, and affect are within normal limits. 14:07 Musculoskeletal/extremity: Extremities: grossly normal except: noted in the left lateral malleolus: decreased ROM, pain, ROM: limited active range of motion due to pain, in the left lateral malleolus, Circulation is intact in all extremities. Sensation intact. Weight bearing: able to fully bear weight. Vital Signs: 10:32 BP 154 / 81; Pulse 74; Resp 18; Temp 97.9; Pulse Ox 100% ; Weight 188.24 kg; Height 6 vg1 ft. 4 in. (193.04 cm); Pain 6/10; 10:32 Body Mass Index 50.51 (188.24 kg, 193.04 cm) vg1 MDM: 10:34 Patient medically screened. kb 14:07 Data reviewed: vital signs, nurses notes. Data interpreted: Pulse oximetry: on room air kb is 100 %. Interpretation: normal. Counseling: I had a detailed discussion with the patient and/or guardian regarding: the historical points, exam findings, and any diagnostic results supporting the discharge/admit diagnosis, radiology results, the need for outpatient follow up, a orthopedic surgeon, to return to the emergency department if symptoms worsen or persist or if there are any questions or concerns that arise at home. 03/03 10:34 Order name: Ankle Left 3 View XRAY; Complete Time: 11:18 kb Administered Medications: No medications were administered Disposition: 03/04 06:54 Co-signature as Attending Physician, Yonathan Ruth MD I agree with the assessment and sameer plan of care. Disposition Summary: 03/03/21 11:32 Discharge Ordered Location: Home kb Condition: Stable kb Diagnosis - Pain in left ankle and joints of left foot kb Followup: kb - With: Emergency Department - When: As needed - Reason: Worsening of condition Followup: kb - With: Private Physician - When: 2 - 3 days - Reason: Recheck today's complaints, Continuance of care, Re-evaluation by your physician Discharge Instructions: - Discharge Summary Sheet kb - Musculoskeletal Pain kb Forms: - Medication Reconciliation Form kb - Thank You Letter kb - Antibiotic Education kb - Prescription Opioid Use kb - Work release form vg1 Prescriptions: - Diclofenac Sodium 75 mg Oral tablet,delayed release (DR/EC) - take 1 tablet by ORAL route 2 times per day As needed; 30 tablet; Refills: 0, kb Product Selection Permitted Signatures: Dispatcher [employer] Catie Thorpe, RECTIFIER OPERATOR-C RACHEL-Yonathan Perez MD MD cha Garcia, Victoria, RN RN vg1
--- NOTE | 2021-03-03 11:33 | ER ---
Nurse's Notes [facility] Name: Dhiraj Peguero Age: 36 yrs Sex: Male : 1985 Arrival Date: 03/03/2021 Time: 10:00 Bed Waiting [facility] MD: Diagnosis: Pain in left ankle and joints of left foot Presentation: 03/03 10:32 Chief complaint: Patient states: "hx of 12 bone spurs" and is unable to move Left vg1 ankle. States sharp pain and is unable to bear weight. Coronavirus screen: Vaccine status: Patient reports being unvaccinated. Client denies travel out of the [place] in the last 14 days. Ebola Screen: Patient negative for fever greater than or equal to 101.5 degrees Fahrenheit, and additional compatible Ebola Virus Disease symptoms. Initial Sepsis Screen: Does the patient meet any 2 criteria? No. Patient's initial sepsis screen is negative. Does the patient have a suspected source of infection? No. Patient's initial sepsis screen is negative. Risk Assessment: Do you want to hurt yourself or someone else? Patient reports no desire to harm self or others. Onset of symptoms was March 02, 2021. 10:32 Method Of Arrival: Ambulatory vg1 10:32 Acuity: JUAN DIEGO 4 vg1 Triage Assessment: 10:37 General: Appears in no apparent distress. uncomfortable, Behavior is calm, cooperative. vg1 Pain: Complains of pain in left lateral malleolus. Musculoskeletal: Circulation, motion, and sensation intact. Historical: - Allergies: 10:37 Phenergan; vg1 - PMHx: 10:37 Kidney stones; Sleep Apnea; vg1 - PSHx: 10:37 Appendectomy; Cholecystectomy; vg1 - Immunization history:: Client reports having NOT received the Covid vaccine. - Social history:: Smoking status: Patient reports the use of cigarette tobacco products, smokes two packs cigarettes per day. Screenin:50 Abuse screen: Denies threats or abuse. Nutritional screening: No deficits noted. vg1 Tuberculosis screening: No symptoms or risk factors identified. Fall Risk None identified. Assessment: 11:50 Reassessment: Patient appears in no apparent distress at this time. No changes from vg1 previously documented assessment. Patient and/or family updated on plan of care and expected duration. Pain level reassessed. Patient is alert, oriented x 3, equal unlabored respirations, skin warm/dry/pink. Vital Signs: 10:32 BP 154 / 81; Pulse 74; Resp 18; Temp 97.9; Pulse Ox 100% ; Weight 188.24 kg; Height 6 vg1 ft. 4 in. (193.04 cm); Pain 6/10; 10:32 Body Mass Index 50.51 (188.24 kg, 193.04 cm) vg1 ED Course: 10:00 Patient arrived in ED. kc5 10:32 Arm band placed on. vg1 10:34 Catie Acevedo FNP-C [facility]. kb 10:34 Yonathan Ruth MD is Attending Physician. kb 10:37 Triage completed. vg1 10:51 Ankle Left 3 View XRAY In Process Unspecified. EDMS 11:49 Domonique Melchor, RN is Primary Nurse. vg1 11:50 No provider procedures requiring assistance completed. Patient did not have IV access vg1 during this emergency room visit. Administered Medications: No medications were administered Outcome: 11:32 Discharge ordered by MD. kb 11:50 Discharged to home ambulatory. vg1 11:50 Condition: good 11:50 Discharge instructions given to patient, Instructed on discharge instructions, follow up and referral plans. medication usage, Demonstrated understanding of instructions, follow-up care, medications, Prescriptions given X 1. 11:51 Patient left the ED. vg1 Signatures: Dispatcher [employer] EDMS Catie Acevedo FNP-C FNP-Ckb Garcia, Victoria, RN RN vg1 Erica Foreman kc5 Corrections: (The following items were deleted from the chart) 10:37 10:32 BP 177 / 94; Pulse 74bpm; Resp 18bpm; Pulse Ox 100%; Temp 97.9F; 188.24 kg; vg1 Height 6 ft. 4 in.; BMI: 50.5; Pain 6/10; vg1
[2021-03-03 12:01] VITALS: BP 154/81; TEMP 97.9; O2SAT 100
[2021-03-03] MEDS ORDERED: SMZ./TMP. 800/160 MG TABLET ONE (13:24)
== END 2021-03-03 11:51 | disposition home or self-care (01) ==
LOC: ER 09:58
DX: M25.572 Pain in left ankle and joints of left foot (principal); F17.210 Nicotine dependence, cigarettes, uncomplicated; Z88.8 Allergy status to other drugs, medicaments and biological substances
CPT/HCPCS: 99283

== ENCOUNTER 2021-04-02 14:06 | Emergency (ER) | payer OTHER ==
--- OUTSIDE RECORDS SUMMARY | 2021-04-02 14:08 | XMS REPORT | Continuity of Care Document ---
:1985 Author Organization [facility] t Address [address] [place] [address] Care Team Providers Name Role Phone PCP, DOES NOT HAVE A Primary Care Physician Unavailable Sami Rahman MD Attending Clinician SAMI RAHMAN Attending Clinician Unavailable SAMI RAHMAN Admitting Clinician Unavailable Payers Payer Name Policy Type Policy Number Effective Date Expiration Date S ource Advance Directives Directive Decision Effective Termination Comments Source Date Date Healthcare Agents on N/A Univ ersity FileNameRelationJoint Township District Memorial Hospit[facility]al[facility] Agent Medical RelationshipCommunicationLee'S Summit Hospital Maria G LopezMotherPrimary healthcare [phone] (Mobile) [email or web address] Problems Condition Condition Condition Status Onset Resolution Last Treating Co mments Source Name Details Category Date Date Treatment Clinician Date No known No known Disease Unive rs active active ity of problems problems [facility] Allergies, Adverse Reactions, Alerts Allergy Allergy Status [...] Comments Source Sex Assigned At Uni versity [facility] Exposure to SARS-CoV-2 Not sure [facility] [place] (event) Medical Branch Smoking Status Start Date Stop Date Source Unknown if ever smoked Universit y [facility] Medications Ordered Filled Start Stop Current Ordering [...] ity of E 05:45: 04:55 ONCE, 1 [place] (MECLIZINE) 00 :00 dose, Wed Med ical ) tablet 25 09/13/19 at Br anch mg 0045, MARCIA NaCl 0.9% 2019-0 2020- No 1000mL at 999 Uni vers (NS) bolus 09-12 mL/hr, ity of infusion 04:45: 06:39 1,000 mL, Asad as 1,000 mL 00 :00 IV Medical Infusion, Branch ONCE, 1 dose, 09/12/19 at 2345, MARCIA meclizine 2020-0 Yes [id number] 25mg Take 1 U nivers 25 mg 6-17 tablet by ity of tablet 00:00: mouth [place] 00 every 6 Medical (six) Branch hours as needed for Dizziness. ondansetron 2020-0 Yes [id number] 8mg Take 2 Univers 4 mg tablet 6-17 tablets by it y of 00:00: mouth [place] 00 every 8 Medical (eight) Branch hours as needed (Dizziness and/or Nausea). albuterol 2020-0 Yes [id number] 2{puff} Inhale 2 Univers 90 6-17 Puffs [...] Branch hours as needed for Alternate with Brielle for pain scale 1-3. Vital Signs Vital Name Observation Time Observation Value Comments Source Systolic blood 2019-09-13 06:00:00 147 mm[Hg[facility] 2019-09-13 06:00:00 74 mm[facility]Hg[facility] 2019-09-13 06:00:00 74 /min [facility] Respiratory rate 2019-09-13 06:00:00 26 /min [facility] Oxygen saturation in 2019-09-13 06:00:00 98 /min [facility] Arterial blood by [facility] Pulse oximetry Branch Body temperature 2019-09-13 04:11:00 36.17 Karishma [facility] Body height 2019-09-13 04:10:00 193 cm [facility] Body weight 2019-09-13 04:10:00 190.057 kg [facility] BMI 2019-09-13 04:10:00 51.00 kg/m2 [facility] Systolic blood 2019-09-13 06:00:00 147 mm[Hg] Univer sity [facility] Diastolic blood 2019-09-13 06:00:00 74 mm[Hg] Unive rsity of pressure [facility] Heart rate 2019-09-13 06:00:00 74 /min [facility] Respiratory rate 2019-09-13 06:00:00 26 /min [facility] Oxygen saturation in 2019-09-13 06:00:00 98 /min [facility] Arterial blood by [facility] Pulse oximetry Branch Body temperature 2019-09-13 04:11:00 36.17 Karishma [facility] Body height 2019-09-13 04:10:00 193 cm [facility] Body weight 2019-09-13 04:10:00 190.057 kg [facility] BMI 2019-09-13 04:10:00 51.00 kg/m2 [facility] Procedures Procedure Date / Time Performing Clinician Source Performed LIPASE 2019-09-13 04:55:00 Brie Rahman [facility] TROPONIN I 2019-09-13 04:55:00 Josiah [facility] HEPATIC FUNCTION PANEL 2019-09-13 04:55:00 Brie Rahman [facility] ([id number]) (ALB,T.PRO,BILI [facility] T,BU/BC,ALT,AST,ALK PHOS) BASIC METABOLIC PANEL 2019-09-13 04:55:00 Brie Rahman [facility] (NA, K, CL, CO2, [facility] Branch GLUCOSE, BUN, CREATININE, CA) CBC WITH DIFFERENTIAL 2019-09-13 04:55:00 Brie Rahman [facility] PROTHROMBIN TIME / INR 2019-09-13 04:55:00 Brie Rahman [facility] ACTIVATED PARTIAL 2019-09-13 04:55:00 Brie Rahman [facility] THRMPLAS PAULA [facility] N-TERMINAL PRO-BNP 2019-09-13 04:55:00 Brie Rahman [facility] COVID-19 (ID NOW RAPID 2019-09-13 04:55:00 Brie Rahman [facility] TESTING) [facility] EKG-12 LEAD 2019-09-13 04:42:11 Brie Rahman [facility] ASSIGNMENT OF BENEFITS 2019-09-13 03:57:21 Doctor Unassigned, No [facility] Name Medical Branch NOTICE OF PRIVACY 2019-09-13 03:57:04 Doctor Unassigned, No [facility] PRACTICES Name Medical Branch CONSENT/REFUSAL FOR 2019-09-13 03:56:48 Doctor Unassigned, No [facility] DIAGNOSIS AND TREATMENT Name Medical [place] Encounters Start End Encounter Admission Attending Care Care Encounter Source Date/Time Date/Time Type Type Clinicians Facility Department ID 2019-09-12 2019-09-13 Emergency [facility] [id number] 22:58:32 01:47:00 Brie Broderick [id number] [place] [id number] [place] [id number] [facility] 2019-09-12 2019-09-13 Emergency [facility] [id number] Univers 22:58:32 01:47:00 [id number] [id number] [place] [id number] Branch 2019-09-12 2019-09-13 Emergency X [facility] ERT [id number] Univers 22:58:32 01:47:00 BRIE [facility] Results Test Description Test Time Test Comments Results Result Comments Source Troponin I 2019-09-13 05:29:00 Test Item Value Reference Range Interpretation Comme nts TROPONIN I (test code = <0.012 See_Comment [Au tomated message] The 3328093595) system which ge nerated this result tra [...] ? Lab Interpretation (test Normal code = 39591-8) [id number] 05:26:00 Test Item Value Reference Range Interpretation Comments NT-proBNP (test code 13 pg/mL See_Comment [Autom ated = 7509453253) message] The system which generated this result transmitted reference range : <=125. The reference range was not used to interpret this result as normal/abnormal . EVARISTO (test code = EVARISTO) Biotin has been reported to cause a negative bias, interpret results relative to patient's use of biotin. Lab Interpretation Normal (test code = 02409-7) [facility] (ID NOW RAPID TESTING)2019-09-13 05:19:00 Test Item Value Reference Range Interpretation Comments SARS-CoV-2 Rapid ID NOW Not Detected Not Detected (test code = 94545-3) EVARISTO (test code = EVARISTO) ID NOW COVID-19 Assay is an isothermal nucleic acid amplification test intended for the qualitative detection of nucleic acid from SARS-CoV-2 viral RNA in nasopharyngeal (PELT SHEARER) specimens. It is used under Emergency Use [...] indicated. Lab Interpretation Normal (test code = 08038-3) [facility] Metabolic Panel (NA, K, CL, CO2, GLUCOSE, BUN, CREATININE, CA)2019-09-13 05:17:00 Test Item Value Reference Range Interpretation Comments NA (test code = 136 mmol/L 135-145 9098277442) K (test code = 5.3 mmol/L 3.5-5 H 2431399001) CL (test code = 100 mmol/L 98-108 1877621811) CO2 TOTAL (test code = 26 mmol/L 23-31 8957659815) AGAP (test code = 2-16 5705789896) BUN (test code = 11 mg/dL 7-23 6172044016) GLUCOSE (test code = 162 mg/dL 70-110 H 8623987119) CREATININE (test code = 1.18 mg/dL 0.6-1.25 3777890046) CALCIUM (test code = 9.9 mg/dL 8.6-10.6 1267627904) eGFR Calculation mL/min/1.73m2 (Non-) (test code = 6634730415) eGFR Calculation mL/min/1.73m2 () (test code = 1429006994) EVARISTO (test code = EVARISTO) Association of [...] tests). Lab Interpretation Abnormal (test code = 04315-8) [facility] (ALB, T.PRO, BILI T, BU/BC, ALT, AST, ALK PHOS)2019-09-13 05:17:00 Test Item Value Reference Range Interpretation Comments TOTAL BILI (test code = 2190266406) 0.5 mg/dL 0.1-1.1 BILI UNCON (test code = 5498469794) 0.4 mg/dL 0.1-1.1 BILI CONJ (test code = 4775570489) 0.0 mg/dL 0-0.3 T PROTEIN (test code = 9142999601) 9.2 g/dL 6.3-8.2 H ALBUMIN (test code = 2995987651) 4.9 g/dL 3.5-5 ALK PHOS (test code = 4977448016) 76 U/L 34-122 ALTv (test code = 1742-6) 60 U/L 5-50 H AST(SGOT) (test code = 8050644599) 44 U/L 13-40 H Lab Interpretation (test code = Abnormal 73957-4) [facility] HospitalLipase [id number] 05:17:00 Test Item Value Reference Range Interpretation Comments LIPASE (test code = 1600103762) 48 U/L 0-220 Lab Interpretation (test code = Normal 86741-5) [facility] [id number] 05:13:00 Test Item Value Reference Range Interpretation Comments APTT Patient (test See_Comment [Automat ed code = 3173-2) message] The system which generated this result transmitted reference range : 23 - 38 Seconds . The reference range was not used to interpr et this result as normal/abnormal . EVARISTO (test code = EVARISTO) The [facility] patient population mean normal value for aPTT is 30 seconds. Lab Interpretation Normal (test code = 49776-6) [facility] HospitalProthrombin Time (PT) / [id number] 05:11:00 Test Item Value Reference Range Interpretation [...] tions. Lab Interpretation (test Normal code = 21934-7) [facility] WITH [id number] 05:04:00 Test Item Value Reference Range Interpretation Comments WBC (test code = See_Comment H [Automated 2990-2) message] The sy stem which generated this [...] RDW-SD (test code = 39.8 fL 38.5-51.6 22299-0) RDW-CV (test code = 12.8 % 12.1-15.4 788-0) PLT (test code = See_Comment H [Automated 777-3) message] The sy stem which generated this result transmitted reference range : 150 - 328 10*3/ ?L. The reference r larisa was not used to interpret this result as normal/abnormal . MPV (test code = 10.3 fL 9.8-13 82242-0) NRBC/100 WBC (test See_Comment [Automat ed code = 2500586031) message] The system which generated this result transmitted reference range : 0.0 - 10.0 /100 WBCs. The refer ence range was not u sed to interpret th is result as normal/abnormal . NRBC x10^3 (test code <0.01 See_Comment [Auto mated = 8498535688) message] The s ystem which generated this result transmitted reference range : 10*3/?L. The reference range was not used to interpret this result as normal/abnormal . GRAN MAT (NEUT) % 83.5 % (test code = 770-8) IMM GRAN % (test code 0.90 % = 6252538332) LYMPH % (test code = 11.4 % 736-9) MONO % (test code = 3.3 % 5905-5) EOS % (test code = 0.6 % 713-8) BASO % (test code = 0.3 % 706-2) GRAN MAT x10^3(ANC) 9.73 10*3/uL 1.99-6.95 H (test code = 2761212935) IMM GRAN x10^3 (test 0.10 10*3/uL 0-0.06 H code = 5174150675) LYMPH x10^3 (test code 1.33 10*3/uL 1.09-3.23 = 731-0) MONO x10^3 (test code 0.38 10*3/uL 0.36-1.02 = 742-7) EOS x10^3 (test code = 0.07 10*3/uL 0.06-0.53 711-2) BASO x10^3 (test code 0.04 10*3/uL 0.01-0.09 = 704-7) Lab Interpretation Abnormal (test code = 00414-1) [facility]"
[2021-04-02] MEDS ORDERED: ONDANSETRON 4 MG (ODT) TAB ONE (14:29)
[2021-04-02 15:18] LABS: SARS-COV-2 RT PCR NEGATIVE (NEGATIVE)
--- NOTE | 2021-04-02 15:34 | ER ---
Nurse's Notes [facility] Name: Dhiraj Peguero Age: 36 yrs Sex: Male : 1985 Arrival Date: 04/02/2021 Time: 14:09 Bed Waiting Private MD: Diagnosis: Nausea with vomiting, unspecified Presentation: 04/02 14:26 Chief complaint: Patient states: I woke up feeling sick today. I feel like I am running ld1 fever, chills and vomiting. Coronavirus screen: Client presents with at least one sign or symptom that may indicate coronavirus-19. Standard/surgical mask placed on the client. Ebola Screen: No symptoms or risks identified at this time. Initial Sepsis Screen: Does the patient meet any 2 criteria? No. Patient's initial sepsis screen is negative. Does the patient have a suspected source of infection? No. Patient's initial sepsis screen is negative. Risk Assessment: Do you want to hurt yourself or someone else? Patient reports no desire to harm self or others. Onset of symptoms was April 02, 2021. 14:26 Method Of Arrival: Ambulatory ld1 14:26 Acuity: JUAN DIEGO 4 ld1 Triage Assessment: 14:28 General: Appears in no apparent distress. comfortable, Behavior is calm, cooperative, ld1 appropriate for age. Pain: Denies pain. Neuro: Level of Consciousness is awake, alert, obeys commands, Oriented to person, place, time, situation. Respiratory: Airway is patent Respiratory effort is even, unlabored, Respiratory pattern is regular, symmetrical. GI: Reports nausea, vomiting. Historical: - Allergies: 14:28 Phenergan; ld1 - PMHx: 14:28 Kidney stones; Sleep Apnea; ld1 - PSHx: 14:28 Appendectomy; Cholecystectomy; ld1 - Immunization history:: Adult Immunizations not up to date, Client reports having NOT received the Covid vaccine. - Social history:: Smoking status: Patient reports the use of cigarette tobacco products, smokes one pack cigarettes per day. Patient uses alcohol, but reports only rare drinking. Vital Signs: 14:26 BP 131 / 92; Pulse 72; Resp 18; Temp 97.9(O); Pulse Ox 100% on R/A; Weight 181.44 kg; ld1 Height 6 ft. 4 in. (193.04 cm); Pain 0/10; 14:26 Body Mass Index 48.69 (181.44 kg, 193.04 cm) ld1 ED Course: 14:09 Patient arrived in ED. ds1 14:28 Triage completed. ld1 14:28 Arm band placed on right wrist. ld1 14:29 [facility]ie Aceved[facility]-C [facility] kb 14:29 Daryl Chew MD is Attending Physician. kb Administered Medications: No medications were administered Outcome: 15:33 Discharge ordered by . kb 15:48 Patient left the ED. kb Signatures: Catie Acevedo FNP-C FNP-Debora Zuniga ds1 Stephanie Burgos, RN RN ld1
--- NOTE | 2021-04-02 15:34 | EDPHYS ---
Physician Documentation [facility] Name: Dhiraj Peguero Age: 36 yrs Sex: Male : 1985 Arrival Date: 04/02/2021 Time: 14:09 Bed Waiting Private MD: ED Physician Daryl Chew HPI: 04/02 15:31 This 36 yrs old Male presents to ER via Ambulatory with complaints of Fever, Chills. kb 15:31 The patient or guardian reports cough, that is intermittent, flu symptoms, low-grade kb fever. Onset: The symptoms/episode began/occurred this morning. Severity of symptoms: At their worst the symptoms were mild, moderate, in the emergency department the symptoms are unchanged. Modifying factors: The symptoms are alleviated by nothing, the symptoms are aggravated by nothing. Associated signs and symptoms: Pertinent positives: fever, nausea, vomiting, Pertinent negatives: chest pain, diarrhea, ear ache, rhinorrhea, sore throat. The patient has not experienced similar symptoms in the past. The patient has not recently seen a physician. Pt reports malaise, fever, chills, n/v and slight cough that started this morning. Historical: - Allergies: 14:28 Phenergan; ld1 - PMHx: 14:28 Kidney stones; Sleep Apnea; ld1 - PSHx: 14:28 Appendectomy; Cholecystectomy; ld1 - Immunization history:: Adult Immunizations not up to date, Client reports having NOT received the Covid vaccine. - Social history:: Smoking status: Patient reports the use of cigarette tobacco products, smokes one pack cigarettes per day. Patient uses alcohol, but reports only rare drinking. ROS: 15:31 Cardiovascular: Negative for chest pain, palpitations, and edema. kb 15:31 Constitutional: Positive for chills, fever, malaise. 15:31 Respiratory: Positive for cough. 15:31 Abdomen/GI: Positive for nausea and vomiting. 15:31 All other systems are negative. Exam: 15:31 Constitutional: This is a well developed, well nourished patient who is awake, alert, kb and in no acute distress. Head/Face: Normocephalic, atraumatic. ENT: Moist Mucous membranes Cardiovascular: Regular rate and rhythm with a normal S1 and S2. No gallops, murmurs, or rubs. No pulse deficits. Respiratory: Respirations even and unlabored. No increased work of breathing. Talking in full sentences Abdomen/GI: Soft, non-tender. No distention Skin: Warm, dry with normal turgor. Normal color. MS/ Extremity: Pulses equal, no cyanosis. Neurovascular intact. Full, normal range of motion. Neuro: Awake and alert, GCS 15, oriented to person, place, time, and situation. Moves all extremities. Normal gait. Psych: Awake, alert, with orientation to person, place and time. Behavior, mood, and affect are within normal limits. Vital Signs: 14:26 BP 131 / 92; Pulse 72; Resp 18; Temp 97.9(O); Pulse Ox 100% on R/A; Weight 181.44 kg; ld1 Height 6 ft. 4 in. (193.04 cm); Pain 0/10; 14:26 Body Mass Index 48.69 (181.44 kg, 193.04 cm) ld1 MDM: 14:29 Patient medically screened. kb 15:30 Data reviewed: vital signs, nurses notes. Data interpreted: Pulse oximetry: on room air kb is 100 %. Interpretation: normal. Counseling: I had a detailed discussion with the patient and/or guardian regarding: the historical points, exam findings, and any diagnostic results supporting the discharge/admit diagnosis, lab results, the need for outpatient follow up, a family practitioner, to return to the emergency department if symptoms worsen or persist or if there are any questions or concerns that arise at home. 04/02 14:29 Order name: COVID-19/FLU A+B (Document "Date of Onset" if Symptomatic); Complete Time: kb 15:19 Administered Medications: No medications were administered Disposition: 16:25 Co-signature as Attending Physician, Daryl Chew MD. rn Disposition Summary: 04/02/21 15:33 Discharge Ordered Location: Home kb Condition: Stable kb Diagnosis - Nausea with vomiting, unspecified kb Followup: kb - With: Emergency Department - When: As needed - Reason: Worsening of condition Followup: kb - With: Private Physician - When: 2 - 3 days - Reason: Recheck today's complaints, Continuance of care, Re-evaluation by your physician Discharge Instructions: - Discharge Summary Sheet kb - Nausea and Vomiting, Adult, [id number] kb Forms: - Medication Reconciliation Form kb - Thank You Letter kb - Antibiotic Education kb - Prescription Opioid Use kb Prescriptions: - Zofran 4 mg Oral Tablet - take 1 tablet by ORAL route every 6 hours As needed; 20 tablet; Refills: 0, kb Product Selection Permitted Signatures: Dispatcher [employer] Catie Thorpe, ADELE RAMOS-Dayrl Olivo MD MD rn Stephanie Burgos RN RN ld1
[2021-04-02 15:54] VITALS: BP 131/92; TEMP 97.9; O2SAT 100
== END 2021-04-02 15:48 | disposition home or self-care (01) ==
LOC: ER 14:06
DX: R11.2 Nausea with vomiting, unspecified (principal); F17.210 Nicotine dependence, cigarettes, uncomplicated; Z20.822 Contact with and (suspected) exposure to COVID-19
CPT/HCPCS: 0240U; 99281

== ENCOUNTER 2021-09-19 09:17 | Emergency (ER) | payer OTHER ==
--- OUTSIDE RECORDS SUMMARY | 2021-09-19 09:19 | XMS REPORT | Continuity of Care Document ---
:1985 Author Organization [facility] t Address [address] [place] [address] Care Team Providers Name Role Phone PCP, DOES NOT HAVE A Primary Care Physician Unavailable Sami Rahman MD Attending Clinician SAMI RAHMAN Attending Clinician Unavailable SAMI RAHMAN Admitting Clinician Unavailable Payers Payer Name Policy Type Policy Number Effective Date Expiration Date S ource Problems Condition Condition Condition Status Onset Resolution Last Treating Co mments Source Name Details Category Date Date Treatment Clinician Date No known No known Disease Unive rs active active ity of problems problems [facility] Allergies, Adverse Reactions, Alerts Allergy Allergy Status Severity Reaction(s) Onset Inactive Treating Comm ents Source Name Type Date Date Clinician Sasha Ortai Active Other - See While U nivers zine Hcl ty to comments 08-02 being ity of adverse 00:00: treated [place] reaction 00 for Medical s to kidney Branch drug stones with Dilaudid and Phenergan , patient became unrespons aris. Was told that Phenergan was the cause and to avoid it. PROMETHA DRUG Active Other-Cmnt Univ ers ZINE HCL INGREDI 08-02 ity of 00:00: [place] 00 Medical Branch Social History Social Habit Start Date Stop Date Quantity Comments Source Sex Assigned At Uni versity of [facility] Exposure to SARS-CoV-2 Not sure Un iversity of [place] (event) Medical Branch Smoking Status Start Date Stop Date Source Unknown if ever smoked [facility] y [facility] Medications Ordered Filled Start Stop Current Ordering Indication Dosage Frequency Signature Comments Components Source Medication Medication Date Date Medication? Clinician (SIG) Name Name ondansetron 2019-0 2019- No 8mg 8 mg, Slow Univers (ZOFRAN 09-12 IV Push, ity of (PF)) 05:45: 04:54 ONCE, 1 [place] injection 8 00 :00 dose, Wed Med ical mg 09/13/19 at Branch 0045, MARCIA meclizine 2019- No 25mg 25 mg, Unive rs (TRAVEL-EAS 09-12 Oral, ity of E 05:45: 04:55 ONCE, 1 [place] (MECLIZINE) 00 :00 dose, Wed Med ical ) tablet 25 09/13/19 at Br anch mg 0045, MARCIA NaCl 0.9% 2019- No 1000mL at 999 Uni vers (NS) bolus 09-12 mL/hr, ity of infusion 04:45: 06:39 1,000 mL, Asad as 1,000 mL 00 :00 IV Medical Infusion, Branch ONCE, 1 dose, 09/12/19 at 2345, MARCIA meclizine 2019-0 Yes [id number] 25mg Take 1 U nivers 25 mg 6-17 tablet by ity of tablet 00:00: mouth [place] 00 every 6 Medical (six) Branch hours as needed for Dizziness. ondansetron 2019-0 Yes [id number] 8mg Take 2 Univers 4 mg tablet 6-17 tablets by it y of 00:00: mouth [place] 00 every 8 Medical (eight) Branch hours as needed (Dizziness and/or Nausea). albuterol 2019-0 Yes [id number] 2{puff} Inhale 2 Univers 90 6-17 Puffs ity of mcg/actuati 00:00: every 4 Asad as on inhaler 00 (four) Medical hours as Branch needed for Wheezing or Shortness of Breath. ondansetron Yes 4mg Take 1 Univ ers (ZOFRAN, 5-07 tablet by ity of HYDROCHLORI 00:00: mouth [place] DE,) 4 mg 00 every 8 Medical tablet (eight) Branch hours as needed for Nausea and Vomiting (N/V). traMADOL 2017-0 Yes 50mg Take 1 Univers (ULTRAM) 50 5-07 tablet by ity of mg tablet 00:00: mouth [place] 00 every 6 Medical (six) Branch hours as needed for Pain unrelieved by non-narcot ic analgesics . tamsulosin 2017-0 Yes .4mg Take 1 Unive rs 0.4 mg 24 5-07 capsule by ity of hr capsule 00:00: mouth at Asad as 00 bedtime. Medical Branch ketorolac 2017-0 Yes 10mg Take 1 Univer s 10 mg 5-07 tablet by ity of tablet 00:00: mouth [place] 00 every 6 Medical (six) Branch hours as needed for Alternate with [place] for pain scale 1-3. Vital Signs Vital Name Observation Time Observation Value Comments Source Systolic blood 2019-09-13 06:00:00 147 mm[Hg] Univer [facility]ity of [facility] Diastolic blood 2019-09-13 06:00:00 74 [facility]Hg[facility] 2019-09-13 06:00:00 74 /min [facility] Respiratory rate 2019-09-13 06:00:00 26 /min [facility] saturation in 2019-09-13 06:00:00 98 /min University of Arterial blood by [facility] [place] Pulse oximetry [place] Body temperature 2019-09-13 04:11:00 36.17 [facility] Body height 2019-09-13 04:10:00 193 cm [facility] Body weight 2019-09-13 04:10:00 190.057 kg [facility] BMI 2019-09-13 04:10:00 51.00 kg/m2 [facility] Systolic blood 2019-09-13 06:00:00 147 mm[Hg] Univer sity of [facility] Diastolic blood 2019-09-13 06:00:00 74 mm[Hg] Unive rsity of [facility] Heart rate 2019-09-13 06:00:00 74 /min [facility] Respiratory rate 2019-09-13 06:00:00 26 /min [facility] Oxygen saturation in 2019-09-13 06:00:00 98 /min University of Arterial blood by [facility] [place] Pulse oximetry Branch Body temperature 2019-09-13 04:11:00 36.17 [facility] Body height 2019-09-13 04:10:00 193 cm [facility] Body weight 2019-09-13 04:10:00 190.057 kg [facility] BMI 2019-09-13 04:10:00 51.00 kg/m2 [facility] Procedures Procedure Date / Time Performing Clinician Source Performed LIPASE 2019-09-13 04:55:00 Brie Rahman [facility] TROPONIN I 2019-09-13 04:55:00 Brie Rahman [facility] HEPATIC FUNCTION PANEL 2019-09-13 04:55:00 Brie Rahman [facility] ([id number]) (ALB,T.PRO,BILI [facility] T,BU/BC,ALT,AST,ALK PHOS) BASIC METABOLIC PANEL 2019-09-13 04:55:00 Malena [facility] (NA, K, CL, CO2, Medical Branch GLUCOSE, BUN, CREATININE, CA) CBC WITH DIFFERENTIAL 2019-09-13 04:55:00 Brie Rahman [facility] PROTHROMBIN TIME / INR 2019-09-13 04:55:00 Brie Rahman [facility] ACTIVATED PARTIAL 2019-09-13 04:55:00 Brie Rahman [facility] THRMPLAS PAULA [facility] N-TERMINAL PRO-BNP 2019-09-13 04:55:00 Brie Rahman [facility] COVID-19 (ID NOW RAPID 2019-09-13 04:55:00 Brie Rahman [facility] TESTING) [facility] EKG-12 LEAD 2019-09-13 04:42:11 Brie Rahman [facility] ASSIGNMENT OF BENEFITS 2019-09-13 03:57:21 Doctor Unassigned, No [facility] NOTICE OF PRIVACY 2019-09-13 03:57:04 Doctor Unassigned, No [facility] CONSENT/REFUSAL FOR 2019-09-13 03:56:48 Doctor Unassigned, No [facility] DIAGNOSIS AND TREATMENT [facility] Encounters Start End Encounter Admission Attending Care Care Encounter Source Date/Time Date/Time Type Type Clinicians Facility Department ID 2019-09-12 2019-09-13 Emergency Malena NVKRISHNA [id number] 22:58:32 01:47:00 Brie Broderick [id number] [place] [id number] [place] [id number] 2019-09-12 2019-09-13 Emergency Malena NVKRISHNA [id number] Univers 22:58:32 01:47:00 [id number] [facility] [id number] [place] [address] Branch 2019-09-12 2019-09-13 Emergency X MALENA NVKRISHNA ERT [id number] Univers 22:58:32 01:47:00 BRIE tobiasfroilan [facility] Results Test Description Test Time Test Comments Results Result Comments Source Troponin I 2019-09-13 05:29:00 Test Item Value Reference Range Interpretation Comme nts TROPONIN I (test code = <0.012 See_Comment [Au tomated message] The 1861355717) system which ge nerated this result tra [...] ? Lab Interpretation (test Normal code = 78438-2) [facility] [id number] 05:26:00 Test Item Value Reference Range Interpretation Comments NT-proBNP (test code 13 pg/mL See_Comment [Autom ated = 2438436107) message] The system which generated this result transmitted reference range : <=125. The reference range was not used to interpret this result as normal/abnormal . EVARISTO (test code = EVARISTO) Biotin has been reported to cause a negative bias, interpret results relative to patient's use of biotin. Lab Interpretation Normal (test code = 12025-9) [facility] (ID NOW RAPID TESTING)2019-09-13 05:19:00 Test Item Value Reference Range Interpretation Comments SARS-CoV-2 Rapid ID NOW Not Detected Not Detected (test code = 68830-2) EVARISTO (test code = EVARISTO) ID NOW COVID-19 Assay is an isothermal nucleic acid amplification test intended for the qualitative detection of nucleic acid from SARS-CoV-2 viral RNA in nasopharyngeal (M[employer]UB [employer]OOKER OPERATOR) specimens. It is used under Emergency Use [...] indicated. Lab Interpretation Normal (test code = 50041-4) [facility] Metabolic Panel (NA, K, CL, CO2, GLUCOSE, BUN, CREATININE, CA)2019-09-13 05:17:00 Test Item Value Reference Range Interpretation Comments NA (test code = 136 mmol/L 135-145 8159208030) K (test code = 5.3 mmol/L 3.5-5 H 9352774906) CL (test code = 100 mmol/L 98-108 3609149026) CO2 TOTAL (test code = 26 mmol/L 23-31 0405709834) AGAP (test code = 2-16 4418901531) BUN (test code = 11 mg/dL 7-23 4505504543) GLUCOSE (test code = 162 mg/dL 70-110 H 7582547333) CREATININE (test code = 1.18 mg/dL 0.6-1.25 1133896289) CALCIUM (test code = 9.9 mg/dL 8.6-10.6 1255452904) eGFR Calculation mL/min/1.73m2 (Non-) (test code = 6410559510) eGFR Calculation mL/min/1.73m2 () (test code = 1848998075) EVARISTO (test code = EVARISTO) Association of [...] tests). Lab Interpretation Abnormal (test code = 84554-5) [facility] (ALB, T.PRO, BILI T, BU/BC, ALT, AST, ALK PHOS)2019-09-13 05:17:00 Test Item Value Reference Range Interpretation Comments TOTAL BILI (test code = 6521565473) 0.5 mg/dL 0.1-1.1 BILI UNCON (test code = 6195439687) 0.4 mg/dL 0.1-1.1 BILI CONJ (test code = 7159202450) 0.0 mg/dL 0-0.3 T PROTEIN (test code = 7093164019) 9.2 g/dL 6.3-8.2 H ALBUMIN (test code = 5366071630) 4.9 g/dL 3.5-5 ALK PHOS (test code = 0605169201) 76 U/L 34-122 ALTv (test code = 1742-6) 60 U/L 5-50 H AST(SGOT) (test code = 5613027534) 44 U/L 13-40 H Lab Interpretation (test code = Abnormal 30883-9) [facility] Hospital[facility] [id number] 05:17:00 Test Item Value Reference Range Interpretation Comments LIPASE (test code = 5702190224) 48 U/L 0-220 Lab Interpretation (test code = Normal 47749-6) [facility] HospitalaPTT2020-06-17 05:13:00 Test Item Value Reference Range Interpretation Comments APTT Patient (test See_Comment [Automat ed code = 3173-2) message] The system which generated this result transmitted reference range : 23 - 38 Seconds . The reference range was not used to interpr et this result as normal/abnormal . EVARISTO (test code = EVARISTO) The [facility] patient population mean normal value for aPTT is 30 seconds. Lab Interpretation Normal (test code = 78645-4) [facility] HospitalProthrombin Time (PT) / [id number] 05:11:00 Test Item Value Reference Range Interpretation [...] tions. Lab Interpretation (test Normal code = 48376-4) [facility] WITH [id number] 05:04:00 Test Item Value Reference Range Interpretation Comments WBC (test code = See_Comment H [Automated 4790-2) message] The sy stem which generated this [...] RDW-SD (test code = 39.8 fL 38.5-51.6 88024-9) RDW-CV (test code = 12.8 % 12.1-15.4 788-0) PLT (test code = See_Comment H [Automated 777-3) message] The sy stem which generated this result transmitted reference range : 150 - 328 10*3/ ?L. The reference r larisa was not used to interpret this result as normal/abnormal . MPV (test code = 10.3 fL 9.8-13 11682-5) NRBC/100 WBC (test See_Comment [Automat ed code = 4799644787) message] The system which generated this result transmitted reference range : 0.0 - 10.0 /100 WBCs. The refer ence range was not u sed to interpret th is result as normal/abnormal . NRBC x10^3 (test code <0.01 See_Comment [Auto mated = 8795608725) message] The s ystem which generated this result transmitted reference range : 10*3/?L. The reference range was not used to interpret this result as normal/abnormal . GRAN MAT (NEUT) % 83.5 % (test code = 770-8) IMM GRAN % (test code 0.90 % = 2408471288) LYMPH % (test code = 11.4 % 736-9) MONO % (test code = 3.3 % 5905-5) EOS % (test code = 0.6 % 713-8) BASO % (test code = 0.3 % 706-2) GRAN MAT x10^3(ANC) 9.73 10*3/uL 1.99-6.95 H (test code = 5556880773) IMM GRAN x10^3 (test 0.10 10*3/uL 0-0.06 H code = 3272392567) LYMPH x10^3 (test code 1.33 10*3/uL 1.09-3.23 = 731-0) MONO x10^3 (test code 0.38 10*3/uL 0.36-1.02 = 742-7) EOS x10^3 (test code = 0.07 10*3/uL 0.06-0.53 711-2) BASO x10^3 (test code 0.04 10*3/uL 0.01-0.09 = 704-7) Lab Interpretation Abnormal (test code = 09275-8) [facility]"
--- NOTE | 2021-09-19 10:10 | RAD REPORT ---
EXAM DESCRIPTION: RAD - Chest Pa And Lat (2 Views) - 09/19/2021 10:00 am CLINICAL HISTORY: COUGH Chest pain. COMPARISON: Chest Pa And Lat (2 Views) dated 10/21/2020; Chest Single View dated 01/31/2020; Chest Sin gle View dated 09/12/2019; Chest Pa And Lat (2 Views) dated 08/22/2018 FINDINGS: The lungs are clear. The heart is mildly enlarged in size. No displaced fractures.
[2021-09-19] MEDS ORDERED: IBUPROFEN 400 MG TAB ONE (10:30)
--- NOTE | 2021-09-19 12:14 | EDPHYS ---
Physician Documentation [facility] Name: Dhiraj Peguero Age: 36 yrs Sex: Male : 1985 Arrival Date: 09/19/2021 Time: 09:19 Bed Waiting Private MD: ED Physician Daryl Chew HPI: 09/19 11:33 This 36 yrs old Male presents to ER via Wheelchair with complaints of Fever, Cough, cp Sore Throat. 11:33 The patient reports fever, with an emergency department temperature of 101.7 degrees cp Fahrenheit. Onset: The symptoms/episode began/occurred yesterday. Associated signs and symptoms: Pertinent positives: cough, runny nose, sore throat, body aches, Pertinent negatives: abdominal pain, chest pain, diarrhea, shortness of breath, vomiting. Severity of symptoms: in the emergency department the symptoms are unchanged despite home interventions. 11:33 Patient reports he is unvaccinated against COVID-19 and Influenza. cp Historical: - Allergies: 10:12 Phenergan; jl7 - Home Meds: 10:12 None [Active]; jl7 - PMHx: 10:12 Kidney stones; Sleep Apnea; jl7 - PSHx: 10:12 Appendectomy; Cholecystectomy; jl7 - Immunization history:: Adult Immunizations unknown. - Social history:: Smoking status: Patient reports the use of cigarette tobacco products, smokes one pack cigarettes per day. ROS: 11:35 Constitutional: Positive for body aches, chills, fever, Negative for poor PO intake. cp 11:35 Eyes: Negative for injury, pain, redness, and discharge. cp 11:35 ENT: Positive for rhinorrhea, sore throat, Negative for drainage from ear(s), ear pain, difficulty swallowing, difficulty handling secretions. 11:35 Cardiovascular: Negative for chest pain. 11:35 Respiratory: Positive for cough, Negative for wheezing. 11:35 Abdomen/GI: Negative for abdominal pain, vomiting, diarrhea, constipation. 11:35 Neuro: Negative for altered mental status, headache. 11:35 All other systems are negative. Exam: 11:40 Constitutional: The patient appears in no acute distress, alert, awake, cp non-diaphoretic, non-toxic, well developed, well nourished. 11:40 Head/Face: Normocephalic, atraumatic. cp 11:40 Eyes: Periorbital structures: appear normal, Conjunctiva: normal, no exudate, no injection, Sclera: no appreciated abnormality, Lids and lashes: appear normal, bilaterally. 11:40 ENT: External ear(s): are unremarkable. 11:40 Neck: ROM/movement: is normal, is supple, no meningismus, no nuchal rigidity. cp 11:40 Chest/axilla: Inspection: normal. cp 11:40 Cardiovascular: Rate: tachycardic, Rhythm: regular. 11:40 Respiratory: the patient does not display signs of respiratory distress, Respirations: normal, no use of accessory muscles, no retractions, labored breathing, is not present, Breath sounds: decreased breath sounds, are not appreciated, stridor, is not appreciated, + upper airway congestion. wheezing: is not appreciated. 11:40 Abdomen/GI: Exam negative for discomfort, distension, guarding, Inspection: abdomen appears normal. 11:40 Skin: no rash present. 11:40 Neuro: Orientation: to person, place \\T\\ time. Mentation: is normal. Vital Signs: 10:10 BP 156 / 78; Pulse 105; Resp 23; Temp 101.7(O); Pulse Ox 96% on R/A; Weight 192.78 kg; jl7 Height 6 ft. 4 in. (193.04 cm); Pain 10/10; 12:06 BP 126 / 67; Pulse 100; Resp 28; Temp 99.7; Pulse Ox 99% ; jl7 10:10 Body Mass Index 51.73 (192.78 kg, 193.04 cm) jl7 MDM: 11:30 Differential diagnosis: viral Infection, bacterial infection, bronchitis, pneumonia cp gastroenteritis, meningitis. 12:13 Patient medically screened. cp 12:13 Data reviewed: vital signs, nurses notes, lab test result(s), radiologic studies, plain cp films. 12:13 Test interpretation: by ED physician or midlevel provider: plain radiologic studies. cp Counseling: I had a detailed discussion with the patient and/or guardian regarding: the historical points, exam findings, and any diagnostic results supporting the discharge/admit diagnosis, lab results, radiology results, to return to the emergency department if symptoms worsen or persist or if there are any questions or concerns that arise at home. Response to treatment: the patient's symptoms have mildly improved after treatment, and as a result, I will discharge patient. ED course: VSS. Patient appears non-toxic and no signs of respiratory distress. Will discharge to home for continued monitoring. 09/19 09:45 Order name: Strep; Complete Time: 11:33 cp 09/19 09:45 Order name: COVID-19 SARS RT PCR (Document "Date of Onset" if Symptomatic); Complete cp Time: 12:05 09/19 09:45 Order name: XRAY Chest Pa And Lat (2 Views); Complete Time: 11:33 cp 09/19 09:45 Order name: Influenza Screen (a \\T\\ B); Complete Time: 11:33 cp 09/19 11:33 Interpretation: Normal except: FLUB FLU B ----- POSITIVE for FLU B protein antigen. cp 09/19 10:45 Order name: Throat Culture EDMS Administered Medications: 10:26 Drug: Motrin (ibuprofen) 800 mg Route: PO; jl7 Disposition: 18:06 Co-signature as Attending Physician, Daryl Chew MD. rn Disposition Summary: 09/19/21 12:13 Discharge Ordered Location: Home cp Problem: new cp Symptoms: have improved cp Condition: Stable cp Diagnosis - SARS-associated coronavirus as the cause of diseases classified elsewhere cp - Influenza due to other identified influenza virus with other respiratory cp manifestations Followup: cp - With: Private Physician - When: 1 - 2 days - Reason: Worsening of condition Discharge Instructions: - Influenza, Adult cp - Aspirin and Your Heart cp - Form - Excuse from Work, School, or Physical Activity cp - COVID-19 cp - COVID-19: What Your Test Results Mean - [facility] cp - Things to Know about the COVID-19 Pandemic - [facility] cp - Discharge Summary Sheet jl7 - 10 Things You Can Do to Manage Your COVID-19 Symptoms at Home - [facility] cp - COVID-19: Quarantine vs. Isolation - [facility] cp - Prevent the Spread of COVID-19 if You Are Sick - [facility] cp Forms: - Work release form jl7 - Medication Reconciliation Form cp - Thank You Letter cp - Antibiotic Education cp - Prescription Opioid Use cp Prescriptions: - PAXLOVID - take 3 tablet by ORAL route 2 times per day for 5 days; 30 tablet; Refills: 0, cp Product Selection Permitted - Ibuprofen 800 mg Oral Tablet - take 1 tablet by ORAL route every 8 hours As needed take with food; 30 tablet; cp Refills: 0, Product Selection Permitted - Tamiflu 75 mg Oral Capsule - take 1 tablet by ORAL route every 12 hours for 5 days; 10 tablet; Refills: 0, cp Product Selection Permitted - Bromfed DM 2-30-10 mg/5 mL Oral syrup - take 10 milliliter by ORAL route every 4 hours; 200 milliliter; Refills: 0, cp Product Selection Permitted Signatures: Dispatcher [employer] EDDaryl Rodriguez MD MD rn Yonathan Davis PA PA cp Leal, Jahala RN RN jl7
--- NOTE | 2021-09-19 12:14 | ER ---
Nurse's Notes [facility] Name: Dhiraj Peguero Age: 36 yrs Sex: Male : 1985 Arrival Date: 09/19/2021 Time: 09:19 Bed Waiting Private MD: Diagnosis: SARS-associated coronavirus as the cause of diseases classified elsewhere;Influenza due to other identified influenza virus with other respiratory manifestations Presentation: 09/19 10:10 Chief complaint: Patient states: Fever, productive cough, sore throat x 1 day. jl7 Coronavirus screen: congestion, cough unrelated to allergies, fever, Client presents with at least one sign or symptom that may indicate coronavirus-19. Standard/surgical mask placed on the client. Provider contacted for isolation considerations. Ebola Screen: No symptoms or risks identified at this time. Initial Sepsis Screen: Does the patient meet any 2 criteria? RR > 20 per min. Temp <36.0*C (96.8*F)) or > 38.3*C (100.9*F). HR > 90 bpm. Yes Does the patient have a suspected source of infection? No. Patient's initial sepsis screen is negative. Risk Assessment: Do you want to hurt yourself or someone else? Patient reports no desire to harm self or others. Onset of symptoms was September 18, 2021. Care prior to arrival: None. 10:10 Method Of Arrival: Wheelchair jl7 10:10 Acuity: JUAN DIEGO 3 jl7 Triage Assessment: 10:12 General: Appears in no apparent distress. uncomfortable, Behavior is calm, cooperative, jl7 appropriate for age. Pain: Complains of pain in all over Pain currently is 10 out of 10 on a pain scale. EENT:. Historical: - Allergies: 10:12 Phenergan; jl7 - Home Meds: 10:12 None [Active]; jl7 - PMHx: 10:12 Kidney stones; Sleep Apnea; jl7 - PSHx: 10:12 Appendectomy; Cholecystectomy; jl7 - Immunization history:: Adult Immunizations unknown. - Social history:: Smoking status: Patient reports the use of cigarette tobacco products, smokes one pack cigarettes per day. Screenin:06 Abuse screen: Denies threats or abuse. Denies injuries from another. Nutritional jl7 screening: No deficits noted. Tuberculosis screening: No symptoms or risk factors identified. Fall Risk None identified. Assessment: 09:45 General: See triage. jl7 12:05 Reassessment: ALEXX Tabares in triage discussing results and POC. jl7 Vital Signs: 10:10 BP 156 / 78; Pulse 105; Resp 23; Temp 101.7(O); Pulse Ox 96% on R/A; Weight 192.78 kg; jl7 Height 6 ft. 4 in. (193.04 cm); Pain 10/10; 12:06 BP 126 / 67; Pulse 100; Resp 28; Temp 99.7; Pulse Ox 99% ; jl7 10:10 Body Mass Index 51.73 (192.78 kg, 193.04 cm) jl7 ED Course: 09:19 Patient arrived in ED. am2 09:27 Yonathan Davis PA is PHCP. cp 09:27 Daryl Chew MD is Attending Physician. cp 09:44 COVID swab sent to lab. Flu and/or RSV swab sent to lab. Strep swab sent to lab. jl7 10:01 XRAY Chest Pa And Lat (2 Views) In Process Unspecified. EDMS 10:12 Triage completed. jl7 10:12 Arm band placed on right wrist. jl7 10:24 Ava Lopez RN is Primary Nurse. jl7 10:26 Patient placed in waiting room, in a wheelchair, Patient notified of wait time. jl7 12:06 Patient has correct armband on for positive identification. jl7 12:20 No provider procedures requiring assistance completed. Patient did not have IV access jl7 during this emergency room visit. Administered Medications: 10:26 Drug: Motrin (ibuprofen) 800 mg Route: PO; jl7 Medication: 12:06 VIS not applicable for this client. jl7 Outcome: 12:13 Discharge ordered by . cp 12:20 Discharged to home ambulatory. jl7 12:20 Condition: stable 12:20 Discharge instructions given to patient, Instructed on discharge instructions, follow up and referral plans. medication usage, Demonstrated understanding of instructions, follow-up care, medications, Prescriptions given X 4. 12:21 Patient left the ED. jl7 Signatures: Dispatcher [employer] EDMA Yonathan Davis PA PA cp Ava Lopez RN RN jl7 Mallory Stout am2 Corrections: (The following items were deleted from the chart) 10:22 10:10 Initial Sepsis Screen: Does the patient meet any 2 criteria? RR > 20 per min. [email or web address] Temp <36.0*C (96.8*F)) or > 38.3*C (100.9*F). HR > 90 bpm. Yes Does the patient have a suspected source of infection? Yes: Productive cough/pneumonia If YES to both, name of provider notified: Yonathan COFFEY jl7
[2021-09-19 12:41] VITALS: BP 126/67; TEMP 99.7; O2SAT 99
== END 2021-09-19 12:21 | disposition home or self-care (01) ==
LOC: ER 09:17
DX: U07.1 COVID-19 (principal); J10.1 Influenza due to other identified influenza virus with other respiratory manifestations; F17.210 Nicotine dependence, cigarettes, uncomplicated; Z88.8 Allergy status to other drugs, medicaments and biological substances
CPT/HCPCS: 87070; 87081; 87804 ×2; 71046; 99284; U0003

== ENCOUNTER 2021-12-05 08:09 | Emergency (ER) | payer OTHER ==
--- OUTSIDE RECORDS SUMMARY | 2021-12-05 08:12 | XMS REPORT | Continuity of Care Document ---
:1985 Author Organization [facility] t Address [address] [place] [address] Care Team Providers Name Role Phone PCP, PATIENT DOES NOT HAVE A Primary Care Physician Brie Ridley MD Attending Clinician BRIE RAHMAN Attending Clinician Unavailable BRIE RAHMAN Admitting Clinician Unavailable Payers Payer Name Policy Type Policy Number Effective Date Expiration Date S ource Problems Condition Condition Condition Status Onset Resolution Last Treating Co mments Source Name Details Category Date Date Treatment Clinician Date No known No known Disease Unive rs active active ity of problems problems [facility] Allergies, Adverse Reactions, Alerts Allergy Allergy Status Severity Reaction(s) Onset Inactive Treating Comm ents Source Name Type Date Date Clinician Sasha Propensi Active Other - See While U nivers [...] INGREDI 08-02 ity of 00:00: [place] 00 [facility] Social History Social Habit Start Date Stop Date Quantity Comments Source Sex Assigned At Uni versity of [facility] Exposure to SARS-CoV-2 Not sure [facility] [place] (event) Medical Branch Smoking Status Start Date Stop Date Source Unknown if ever smoked [facility] Medical Branch Medications Ordered Filled Start Stop Current Ordering Indication Dosage Frequency Signature Comments Components Source Medication Medication Date Date Medication? Clinician (SIG) Name Name ondansetron 2019-0 2020- No 8mg 8 mg, Slow Univers (ZOFRAN 09-1217 IV Push, ity of (PF)) 05:45: 04:54 ONCE, 1 [place] injection 8 00 :00 dose, Wed Med ical mg 09/13/19 at Branch 0045, MARCIA meclizine 2019- No 25mg 25 mg, Unive rs (TRAVEL-EAS 09-12 Oral, ity of E 05:45: 04:55 ONCE, 1 [place] (MECLIZINE) 00 :00 dose, Wed Med ical ) tablet 25 09/13/19 at Br anch mg 0045, MARCIA NaCl 0.9% 2019- No 1000mL at 999 Uni vers (NS) bolus 09-12 mL/hr, ity of infusion 04:45: 06:39 1,000 mL, Asad as 1,000 mL 00 :00 IV Medical Infusion, Branch ONCE, 1 dose, 09/12/19 at 2345, MARCIA meclizine 2019-0 Yes [id number] 25mg Take 1 U nivers 25 mg 6-17 tablet by ity of tablet 00:00: mouth [place] 00 every 6 Medical (six) Branch hours as needed for Dizziness. ondansetron 2019-0 Yes [id number] 8mg Take 2 Univers 4 mg tablet 6-17 tablets by it y of 00:00: mouth [place] 00 every 8 Medical (eight) Branch hours as needed (Dizziness and/or Nausea). albuterol 2019-0 Yes [id number] 2{puff} Inhale 2 Univers 90 6-17 Puffs ity of mcg/actuati 00:00: every 4 Asad as on inhaler 00 (four) Medical hours as Branch needed for Wheezing or Shortness of Breath. ondansetron 2016- Yes 4mg Take 1 Univ ers (ZOFRAN, 5-07 tablet by ity of HYDROCHLORI 00:00: mouth [place] DE,) 4 mg 00 every 8 Medical tablet (eight) Branch hours as needed for Nausea and Vomiting (N/V). traMADOL 2017- Yes 50mg Take 1 Univers (ULTRAM) 50 5-07 tablet by ity of mg tablet 00:00: mouth [place] 00 every 6 Medical (six) Branch hours as needed for Pain unrelieved by non-narcot ic analgesics . tamsulosin 2017-0 Yes .4mg Take 1 Unive rs 0.4 mg 24 5-07 capsule by ity of hr capsule 00:00: mouth at Asad as 00 bedtime. Medical Branch ketorolac 2017 Yes 10mg Take 1 Univer s 10 mg 5-07 tablet by ity of tablet 00:00: mouth [place] 00 every 6 Medical (six) Branch hours as needed for Alternate with Adrian for pain scale 1-3. Vital Signs Vital Name Observation Time Observation Value Comments Source Systolic blood 2019-09-13 06:00:00 147 mm[Hg] Univer sity [facility] Diastolic blood 2019-09-13 06:00:00 74 [facility]Hg[facility] 2019-09-13 06:00:00 74 /min [facility] Respiratory rate 2019-09-13 06:00:00 26 /min [facility] Oxygen saturation in 2019-09-13 06:00:00 98 /min [facility] Arterial blood by [facility] Pulse oximetry [place] Body temperature 2019-09-13 04:11:00 36.17 Karishma [facility] Body height 2019-09-13 04:10:00 193 cm [facility] Body weight 2019-09-13 04:10:00 190.057 kg [facility] BMI 2019-09-13 04:10:00 51.00 kg/m2 [facility] Systolic blood 2019-09-13 06:00:00 147 mm[Hg] Univer sity [facility] Diastolic blood 2019-09-13 06:00:00 74 mm[Hg] Unive rsity of [facility] Heart rate 2019-09-13 06:00:00 74 /min [facility] Respiratory rate 2019-09-13 06:00:00 26 /min [facility] Oxygen saturation in 2019-09-13 06:00:00 98 /min [facility] Arterial blood by [facility] Pulse oximetry Branch Body temperature 2019-09-13 04:11:00 36.17 Karishma [facility] Body height 2019-09-13 04:10:00 193 cm [facility] Body weight 2019-09-13 04:10:00 190.057 kg [facility] BMI 2019-09-13 04:10:00 51.00 kg/m2 [facility] Procedures Procedure Date / Time Performing Clinician Source Performed LIPASE 2019-09-13 04:55:[address] [facility] TROPONIN I 2019-09-13 04:55:[address] [facility] HEPATIC FUNCTION PANEL 2019-09-13 04:55:00 Brie Rahman [facility] ([id number]) (ALB,T.PRO,BILI [facility] T,BU/BC,ALT,AST,ALK PHOS) BASIC METABOLIC PANEL 2019-09-13 04:55:00 Brie Rahman [facility] (NA, K, CL, CO2, [facility] GLUCOSE, BUN, CREATININE, CA) CBC WITH DIFFERENTIAL 2019-09-13 04:55:00 Brie Rahman [facility] PROTHROMBIN TIME / INR 2019-09-13 04:55:[address] [facility] ACTIVATED PARTIAL 2019-09-13 04:55:00 Brie Rahman [facility] THRMPLAS PAULA [facility] N-TERMINAL PRO-BNP 2019-09-13 04:55:00 Brie Rahman [facility] COVID-19 (ID NOW RAPID 2019-09-13 04:55:00 Brie Rahman [facility] TESTING) [facility] EKG-12 LEAD 2019-09-13 04:42:[address] [facility] ASSIGNMENT OF BENEFITS 2019-09-13 03:57:21 Doctor Unassigned, No [facility] NOTICE OF PRIVACY 2019-09-13 03:57:04 Doctor Unassigned, No [facility] PRACTICES [facility] CONSENT/REFUSAL FOR 2019-09-13 03:56:48 Doctor Unassigned, No [facility] DIAGNOSIS AND TREATMENT Name Medical Branch Encounters Start End Encounter Admission Attending Care Care Encounter Source Date/Time Date/Time Type Type Clinicians Facility Department ID 2019-09-12 2019-09-13 [facility] [id number] 22:58:32 01:47:00 Brie Broderick [id number] [place] [id number] [place] [id number] 2019-09-12 2019-09-13 Emergency Malena [facility] [id number] Univers 22:58:32 01:47:00 Brie Broderick [id number] ity [facility] [id number] [facility] [id number] [place] [address] Branch 2019-09-12 2019-09-13 Emergency X MALENA [facility] ERT [id number] Univers 22:58:32 01:47:00 BRIE froilan [facility] Results Test Description Test Time Test Comments Results Result Comments Source Troponin I 2019-09-13 05:29:00 Test Item Value Reference Range Interpretation Comme nts TROPONIN I (test code = <0.012 See_Comment [Au tomated message] The 3196151828) system which ge nerated this result tra [...] ? Lab Interpretation (test Normal code = 49712-1) [facility] [id number] 05:26:00 Test Item Value Reference Range Interpretation Comments NT-proBNP (test code 13 pg/mL See_Comment [Autom ated = 0947281938) message] The system which generated this result transmitted reference range : <=125. The reference range was not used to interpret this result as normal/abnormal . EVARISTO (test code = EVARISTO) Biotin has been reported to cause a negative bias, interpret results relative to patient's use of biotin. Lab Interpretation Normal (test code = 04806-0) [facility]OVID-[facility] (ID NOW RAPID TESTING)2019-09-13 05:19:00 Test Item Value Reference Range Interpretation Comments SARS-CoV-2 Rapid ID NOW Not Detected Not Detected (test code = 81985-8) EVARISTO (test code = EVARISTO) ID NOW COVID-19 Assay is an isothermal nucleic acid amplification test intended for the qualitative detection of nucleic acid from SARS-CoV-2 viral RNA in nasopharyngeal (ROBOTIC WELDING OPERATOR) specimens. It is used under Emergency [...] indicated. Lab Interpretation Normal (test code = 63689-7) [facility] Metabolic Panel (NA, K, CL, CO2, GLUCOSE, BUN, CREATININE, CA)2019-09-13 05:17:00 Test Item Value Reference Range Interpretation Comments NA (test code = 136 mmol/L 135-145 4798099894) K (test code = 5.3 mmol/L 3.5-5 H 9616078457) CL (test code = 100 mmol/L 98-108 1294826556) CO2 TOTAL (test code = 26 mmol/L 23-31 6011098605) AGAP (test code = 2-16 1329408389) BUN (test code = 11 mg/dL 7-23 9473375728) GLUCOSE (test code = 162 mg/dL 70-110 H 8971951962) CREATININE (test code = 1.18 mg/dL 0.6-1.25 3495728871) CALCIUM (test code = 9.9 mg/dL 8.6-10.6 0247926341) eGFR Calculation mL/min/1.73m2 (Non-) (test code = 2905662761) eGFR Calculation mL/min/1.73m2 () (test code = 8773090556) EVARISTO (test code = EVARISTO) Association of [...] tests). Lab Interpretation Abnormal (test code = 71029-2) [facility] Center[facility] Function Panel (ALB, T.PRO, BILI T, BU/BC, ALT, AST, ALK PHOS)2019-09-13 05:17:00 Test Item Value Reference Range Interpretation Comments TOTAL BILI (test code = 4004902524) 0.5 mg/dL 0.1-1.1 BILI UNCON (test code = 4181492688) 0.4 mg/dL 0.1-1.1 BILI CONJ (test code = 3717665195) 0.0 mg/dL 0-0.3 T PROTEIN (test code = 6639020534) 9.2 g/dL 6.3-8.2 H ALBUMIN (test code = 3956075118) 4.9 g/dL 3.5-5 ALK PHOS (test code = 8464776001) 76 U/L 34-122 ALTv (test code = 1742-6) 60 U/L 5-50 H AST(SGOT) (test code = 5262664734) 44 U/L 13-40 H Lab Interpretation (test code = Abnormal 82827-2) [facility] CenterLipase [id number] 05:17:00 Test Item Value Reference Range Interpretation Comments LIPASE (test code = 2319188085) 48 U/L 0-220 Lab Interpretation (test code = Normal 25304-1) [facility] CenteraPTT2020-06-17 05:13:00 Test Item Value Reference Range Interpretation Comments APTT Patient (test See_Comment [Automat ed code = 3173-2) message] The system which generated this result transmitted reference range : 23 - 38 Seconds . The reference range was not used to interpr et this result as normal/abnormal . EVARISTO (test code = EVARISTO) The [facility] patient population mean normal value for aPTT is 30 seconds. Lab Interpretation Normal (test code = 33923-5) [facility] CenterProthrombin Time (PT) / [id number] 05:11:00 Test Item Value Reference Range Interpretation [...] tions. Lab Interpretation (test Normal code = 06440-3) [facility] WITH [id number] 05:04:00 Test Item Value Reference Range Interpretation Comments WBC (test code = See_Comment H [Automated 2290-2) message] The sy stem which generated this [...] RDW-SD (test code = 39.8 fL 38.5-51.6 46025-6) RDW-CV (test code = 12.8 % 12.1-15.4 788-0) PLT (test code = See_Comment H [Automated 777-3) message] The sy stem which generated this result transmitted reference range : 150 - 328 10*3/ ?L. The reference r larisa was not used to interpret this result as normal/abnormal . MPV (test code = 10.3 fL 9.8-13 77458-4) NRBC/100 WBC (test See_Comment [Automat ed code = 9252161386) message] The system which generated this result transmitted reference range : 0.0 - 10.0 /100 WBCs. The refer ence range was not u sed to interpret th is result as normal/abnormal . NRBC x10^3 (test code <0.01 See_Comment [Auto mated = 6202432598) message] The s ystem which generated this result transmitted reference range : 10*3/?L. The reference range was not used to interpret this result as normal/abnormal . GRAN MAT (NEUT) % 83.5 % (test code = 770-8) IMM GRAN % (test code 0.90 % = 4309852049) LYMPH % (test code = 11.4 % 736-9) MONO % (test code = 3.3 % 5905-5) EOS % (test code = 0.6 % 713-8) BASO % (test code = 0.3 % 706-2) GRAN MAT x10^3(ANC) 9.73 10*3/uL 1.99-6.95 H (test code = 0790938635) IMM GRAN x10^3 (test 0.10 10*3/uL 0-0.06 H code = 7998003828) LYMPH x10^3 (test code 1.33 10*3/uL 1.09-3.23 = 731-0) MONO x10^3 (test code 0.38 10*3/uL 0.36-1.02 = 742-7) EOS x10^3 (test code = 0.07 10*3/uL 0.06-0.53 711-2) BASO x10^3 (test code 0.04 10*3/uL 0.01-0.09 = 704-7) Lab Interpretation Abnormal (test code = 00405-1) [facility]"
[2021-12-05] MEDS ORDERED: HYDROMORPHONE HCL 2 MG/ML inj ONE (08:32)
[2021-12-05] MEDS ORDERED: TAMSULOSIN 0.4 MG SR CAP ONE (08:33)
[2021-12-05] MEDS ORDERED: NA CHLORIDE 0.9% 1,000 ML ONE (08:33)
[2021-12-05] MEDS ORDERED: CEFTRIAXONE 1000 MG/VIAL ONE (08:33)
[2021-12-05] MEDS ORDERED: KETOROLAC 30 MG/ML INJ ONE (08:33)
[2021-12-05 08:37] LABS: Absolute Lymphocytes (CBC) 3.1 K/uL (0.7-4.9); Hematocrit 46.6 % (39.6-49.0); Lymphocytes % 21.6 % (15.3-44.8); MCV 85.2 fL (80-100); MPV 7.9 fL (7.6-11.3); RBC Red Blood Cell Count 5.47 M/uL (4.33-5.43)
[2021-12-05] MEDS ORDERED: NA CHLORIDE 0.9% 100 ML ONE (08:46)
[2021-12-05] MEDS ORDERED: HYDROMORPHONE HCL 1 MG/ML INJ ONE ×2 (08:55→13:17)
[2021-12-05] MEDS ORDERED: ONDANSETRON 4 MG/2 ML VIAL ONE (09:03)
[2021-12-05 09:30] LABS: Albumin 3.9 g/dL (3.4-5.0); Bilirubin Total 0.5 mg/dL (0.2-1.0); Potassium 4.1 mmol/L (3.5-5.1); Protein, Total 8.7 g/dL (6.4-8.2)
[2021-12-05 10:19] LABS: Urine Bacteria 20-50 /HPF (<20); Urine RBC >50 /HPF (None Seen)
[2021-12-05 10:20] LABS: Urine Mucus 1+ /HPF (None Seen)
--- NOTE | 2021-12-05 12:20 | RAD REPORT ---
EXAM DESCRIPTION: RAD - Urograph (IVP) - 12/05/2021 11:51 am CLINICAL HISTORY: Pain Flank pain, difficulty urination COMPARISON: Stone Protocol dated 08/16/2019 FINDINGS: Following the uneventful administration of intravenous contrast material. Multiple project ions of the genitourinary system were performed. Pre-injection freight separator imaging shows no evidence of radiopaque calculus. Both pelvicaliceal systems show symmetric uptake and excretion of contrast material. Mild right hydronephrosis and hydroureter is seen to the level the right UVJ. Although a filling defe ct is not definitively identified, findings may indicate a small stone at the right UVJ or a recently passed stone. The patient was unable to void for post void imaging. IMPRESSION: Mild right hydronephrosis and hydroureter is noted. Although a clear filling defect is n ot visualized, these secondary signs could indicate a small calculus is present at the right UVJ or a recently passed stone.
--- NOTE | 2021-12-05 12:50 | EDPHYS ---
Physician Documentation [facility] Name: Dhiraj Peguero Age: 36 yrs Sex: Male : 1985 Arrival Date: 12/05/2021 Time: 08:13 Bed 8 Private MD: ED Physician Yonathan Ruth HPI: 12/05 12:43 This 36 yrs old Male presents to ER via Wheelchair with complaints of Flank sameer Pain. 12:43 The patient complains of pain in the right mid back and right low back. The pain sameer radiates to the right mid back and right low back. Onset: The symptoms/episode began/occurred just prior to arrival, this morning. Modifying factors: The symptoms are alleviated by nothing. the symptoms are aggravated by movement. Associated signs and symptoms: Pertinent positives: urinary frequency, nausea. Severity of pain: At its worst the pain was incapacitating in the emergency department the pain is actually worse. The patient has not experienced similar symptoms in the past. Historical: - Allergies: 08:16 Phenergan; jl7 - Home Meds: 08:16 None [Active]; jl7 - PMHx: 08:16 Kidney stones; Sleep Apnea; jl7 - PSHx: 08:16 Appendectomy; Cholecystectomy; jl7 - Immunization history:: Adult Immunizations unknown. - Social history:: Smoking status: Patient reports the use of cigarette tobacco products, smokes 1.5 packs per day. ROS: 12:44 Constitutional: Negative for fever, chills, and weight loss, Eyes: Negative for injury, sameer pain, redness, and discharge, ENT: Negative for injury, pain, and discharge, Neck: Negative for injury, pain, and swelling, Cardiovascular: Negative for chest pain, palpitations, and edema, Respiratory: Negative for shortness of breath, cough, wheezing, and pleuritic chest pain, : Negative for injury, bleeding, discharge, and swelling, MS/Extremity: Negative for injury and deformity, Skin: Negative for injury, rash, and discoloration, Neuro: Negative for headache, weakness, numbness, tingling, and seizure, Psych: Negative for depression, anxiety, suicide ideation, homicidal ideation, and hallucinations, Allergy/Immunology: Negative for hives, rash, and allergies, Endocrine: Negative for neck swelling, polydipsia, polyuria, polyphagia, and marked weight changes, Hematologic/Lymphatic: Negative for swollen nodes, abnormal bleeding, and unusual bruising. 12:44 Abdomen/GI: Positive for abdominal pain, nausea, vomiting, abdominal distension, of the anterior aspect of right lateral abdomen, posterior aspect of right lateral abdomen and right lower quadrant. 12:44 Back: Positive for flank pain. Exam: 12:47 Constitutional: This is a well developed, well nourished patient who is awake, alert, sameer and in no acute distress. Head/Face: Normocephalic, atraumatic. Eyes: Pupils equal round and reactive to light, extra-ocular motions intact. Lids and lashes normal. Conjunctiva and sclera are non-icteric and not injected. Cornea within normal limits. Periorbital areas with no swelling, redness, or edema. ENT: Nares patent. No nasal discharge, no septal abnormalities noted. Tympanic membranes are normal and external auditory canals are clear. Oropharynx with no redness, swelling, or masses, exudates, or evidence of obstruction, uvula midline. Mucous membranes moist. Neck: Trachea midline, no thyromegaly or masses palpated, and no cervical lymphadenopathy. Supple, full range of motion without nuchal rigidity, or vertebral point tenderness. No Meningismus. Chest/axilla: Normal chest wall appearance and motion. Nontender with no deformity. No lesions are appreciated. Cardiovascular: Regular rate and rhythm with a normal S1 and S2. No gallops, murmurs, or rubs. Normal PMI, no JVD. No pulse deficits. Respiratory: Lungs have equal breath sounds bilaterally, clear to auscultation and percussion. No rales, rhonchi or wheezes noted. No increased work of breathing, no retractions or nasal flaring. Male : Normal genitalia with no discharge or lesions. Skin: Warm, dry with normal turgor. Normal color with no rashes, no lesions, and no evidence of cellulitis. MS/ Extremity: Pulses equal, no cyanosis. Neurovascular intact. Full, normal range of motion. Neuro: Awake and alert, GCS 15, oriented to person, place, time, and situation. Cranial nerves II-XII grossly intact. Motor strength 5/5 in all extremities. Sensory grossly intact. Cerebellar exam normal. Normal gait. Psych: Awake, alert, with orientation to person, place and time. Behavior, mood, and affect are within normal limits. 12:47 Abdomen/GI: Inspection: distension, Bowel sounds: active, Palpation: abdomen is soft and non-tender, Liver: no appreciated palpable abnormalities, Hernia: not appreciated. Vital Signs: 08:14 BP 145 / 103; Pulse 92; Resp 22; Pulse Ox 100% ; Weight 195 kg (M); Height 6 ft. 4 in. jl7 (193.04 cm); Pain 10/10; 08:19 Temp 97.2; jl7 12:49 BP 130 / 62; Pulse 63; Resp 16; Temp 98; Pulse Ox 99% ; ko1 08:14 Body Mass Index 52.33 (195.00 kg, 193.04 cm) jl7 MDM: 08:15 Patient medically screened. [facility] 12:48 Differential diagnosis: pyelonephritis, UTI, testicular torsion, pancreatitis, sameer Cholelithiasis, diverticulitis, gastritis, gastroesophageal reflux disease, sympomatic leaking abdominal aortic aneurysm, Mesenteric ischemia or infarction, non-specific abd pain, pancreatitis. Data reviewed: vital signs, nurses notes, lab test result(s), radiologic studies. Data interpreted: jigsawyer: rate is 92 beats/min, rhythm is regular, Pulse oximetry: on room air is 100 %. Counseling: I had a detailed discussion with the patient and/or guardian regarding: the historical points, exam findings, and any diagnostic results supporting the discharge/admit diagnosis, lab results, radiology results, the need for outpatient follow up, for definitive care, a family practitioner, a urologist. 12/05 08:17 Order name: CBC with Diff; Complete Time: 11:14 [facility] 12/05 08:17 Order name: CMP; Complete Time: 11:14 [facility] 12/05 08:17 Order name: Lipase; Complete Time: 11:14 [facility] 12/05 08:17 Order name: Urine Microscopic Only; Complete Time: 11:14 [facility] 12/05 08:36 Order name: IVP Urograph; Complete Time: 12:22 [facility] 12/05 10:22 Order name: Urine Culture EDMS 12/05 08:17 Order name: IV Saline Lock; Complete Time: 08:25 sameer 12/05 08:17 Order name: Labs collected and sent; Complete Time: 08:25 [facility] 12/05 08:17 Order name: Urine Dipstick-Ancillary (obtain specimen); Complete Time: 10:00 sameer Administered Medications: 08:26 Drug: Dilaudid (HYDROmorphone) 1 mg Route: IVP; Site: left antecubital; ko1 08:26 Drug: NS 0.9% 1000 ml Route: IV; Rate: 1 bolus; Site: left antecubital; ko1 08:26 Drug: Ketorolac 30 mg Route: IVP; Site: left antecubital; ko1 08:27 Drug: Flomax (tamsulosin) 0.4 mg Route: PO; ko1 08:50 Drug: Rocephin (cefTRIAXone) 1 grams Route: IV; Rate: per protocol; Site: left ko1 antecubital; 09:01 Drug: Zofran (Ondansetron) 8 mg Route: IVP; Site: left antecubital; ko1 09:01 Drug: Dilaudid (HYDROmorphone) 1 mg Route: IVP; Site: left antecubital; ko1 13:11 Drug: Dilaudid (HYDROmorphone) 1 mg Route: IVP; Site: left antecubital; ko1 Disposition Summary: 12/05/21 12:50 Discharge Ordered Location: Home sameer Problem: new sameer Symptoms: have improved sameer Condition: Stable sameer Diagnosis - Hydronephrosis with renal and ureteral calculous obstruction sameer - Morbid (severe) obesity due to excess calories sameer - Elevated white blood cell count sameer Followup: smaeer - With: Private Physician - When: 1 - 2 days - Reason: Recheck today's complaints, Continuance of care, Re-evaluation by your physician Followup: sameer - With: Benji Valadez MD - When: 2 - 3 days - Reason: Recheck today's complaints, Re-evaluation by your physician Discharge Instructions: - Discharge Summary Sheet sameer - Kidney Stones sameer - Obesity, Adult sameer - Kidney Stones, [id number]-mk-Cfvy sameer - Hydronephrosis sameer - Dietary Guidelines to Help Prevent Kidney Stones sameer - Obesity, Adult, [id number]-[id number] sameer Forms: - Medication Reconciliation Form sameer - Thank You Letter sameer - Antibiotic Education sameer - Prescription Opioid Use sameer Prescriptions: - Flomax 0.4 mg Oral capsule - take 1 capsule by ORAL route once daily 1/2 hour following the same meal each sameer day; 30 capsule; Refills: 0, Product Selection Permitted - Zofran 4 mg Oral Tablet - take 1 tablet by ORAL route every 12 hours As needed; 20 tablet; Refills: 0, [facility] Product Selection Permitted - Cipro 500 mg Oral Tablet - take 1 tablet by ORAL route every 12 hours for 7 days; 14 tablet; Refills: 0, [facility] Product Selection Permitted - Tylenol-Codeine #3 300 mg-30 mg Oral - take 2 tablet by ORAL route every 6 hours; 26 tablet; Refills: 0, Product [facility] Selection Permitted Signatures: Dispatcher [employer] Yonathan Victor MD MD cha Leal, Jahala RN RN jl7 Lubna Butler RN RN ko1
--- NOTE | 2021-12-05 12:50 | ER ---
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 Coronavirus screen: jl7 Vaccine status: Patient reports being unvaccinated. Ebola Screen: No symptoms or risks identified at this time. Initial Sepsis Screen: Does the patient meet any 2 criteria? No. Patient's initial sepsis screen is negative. Does the patient have a suspected source of infection? No. Patient's initial sepsis screen is negative. Risk Assessment: Do you want to hurt yourself or someone else? Patient reports no desire to harm self or others. Onset of symptoms was December 05, 2021. 08:14 Method Of Arrival: Wheelchair jl7 08:14 Acuity: JUAN DIEGO 3 jl7 13:16 Note Patient states pain is better, 8 before Dilaudid, now is a 4. ko1 Triage Assessment: 08:16 General: Appears in no apparent distress. uncomfortable, Behavior is calm, cooperative, jl7 appropriate for age. Pain: Complains of pain in right flank Pain currently is 10 out of 10 on a pain scale. Neuro: Level of Consciousness is awake, alert, obeys commands, Oriented to person, place, time, situation. : Reports inability to void, last void last night. Historical: - Allergies: 08:16 Phenergan; jl7 - Home Meds: 08:16 None [Active]; jl7 - PMHx: 08:16 Kidney stones; Sleep Apnea; jl7 - PSHx: 08:16 Appendectomy; Cholecystectomy; jl7 - Immunization history:: Adult Immunizations unknown. - Social history:: Smoking status: Patient reports the use of cigarette tobacco products, smokes 1.5 packs per day. Screenin:08 Abuse screen: Denies threats or abuse. Denies injuries from another. Nutritional jl7 screening: No deficits noted. Tuberculosis screening: No symptoms or risk factors identified. Fall Risk IV access (20 points). Total Garrido Fall Scale indicates No Risk (0-24 pts). Assessment: 08:45 Reassessment: Pt reports medications did not help his pain, pain rated 10/10, Dr. ruben Ruth notified see [facility] for orders. 10:08 Reassessment: database software technician reports they will do the study when they can get to it, that [facility] they are extremely busy and short staffed. ERD notified. 11:50 Reassessment: Pt to radiology. jl7 12:04 Reassessment: Pt returned from radiology. jl7 12:56 Reassessment: Dr. Ruth at bedside discussing results and POC. ko1 13:27 Reassessment: Waiting for pt's transportation to arrive for discharge. vg1 Vital Signs: 08:14 BP 145 / 103; Pulse 92; Resp 22; Pulse Ox 100% ; Weight 195 kg (M); Height 6 ft. 4 in. jl (193.04 cm); Pain 10/10; 08:19 Temp 97.2; jl7 12:49 BP 130 / 62; Pulse 63; Resp 16; Temp 98; Pulse Ox 99% ; ko1 08:14 Body Mass Index 52.33 (195.00 kg, 193.04 cm) [facility] ED Course: 08:13 Patient arrived in ED. jl7 08:13 Initial lab(s) drawn, by co, held in ED. Inserted saline lock: 20 gauge in left 3 antecubital area, using aseptic technique. Blood collected. 08:15 Yonathan Ruth MD is Attending Physician. [facility] 08:16 Triage completed. jl7 08:16 Arm band placed on right wrist. jl7 08:25 Initial lab(s) drawn, by co, sent to lab. [facility] 09:42 Lubna Butler, VAHID is Primary Nurse. ko1 10:00 Urine Microscopic Only Sent. ko1 10:08 Awaiting: Xray to perform the ordered study. jl7 10:08 Patient has correct armband on for positive identification. Bed in low position. Call [facility] light in reach. Side rails up X 1. Pulse ox on. NIBP on. 11:53 IVP Urograph In Process Unspecified. EDMS 12:50 Benji Valadez MD is Referral Physician. sameer 13:42 No provider procedures requiring assistance completed. IV discontinued, intact, ko1 bleeding controlled, No redness/swelling at site. Pressure dressing applied. Administered Medications: 08:26 Drug: Dilaudid (HYDROmorphone) 1 mg Route: IVP; Site: left antecubital; ko1 08:26 Drug: NS 0.9% 1000 ml Route: IV; Rate: 1 bolus; Site: left antecubital; ko1 08:26 Drug: Ketorolac 30 mg Route: IVP; Site: left antecubital; ko1 08:27 Drug: Flomax (tamsulosin) 0.4 mg Route: PO; ko1 08:50 Drug: Rocephin (cefTRIAXone) 1 grams Route: IV; Rate: per protocol; Site: left ko1 antecubital; 09:01 Drug: Zofran (Ondansetron) 8 mg Route: IVP; Site: left antecubital; ko1 09:01 Drug: Dilaudid (HYDROmorphone) 1 mg Route: IVP; Site: left antecubital; ko1 13:11 Drug: Dilaudid (HYDROmorphone) 1 mg Route: IVP; Site: left antecubital; ko1 Medication: 10:08 VIS not applicable for this client. jl7 Outcome: 12:50 Discharge ordered by MD. estrella 13:41 Discharged to home ambulatory. ko1 13:41 Condition: stable 13:41 Discharge instructions given to patient, Instructed on discharge instructions, follow up and referral plans. Demonstrated understanding of instructions, follow-up care, medications, Prescriptions given X 4. 13:43 Patient left the ED. ko1 Signatures: Dispatcher [employer] EDNY Yonathan Ruth MD MD cha Leal, Jahala RN RN jl7 Marie More 3 Domonique Melchor RN RN vg1 Lubna Butler, RN RN ko1
[2021-12-05 13:52] VITALS: BP 130/62; TEMP 98; O2SAT 99
[2021-12-09 15:10] LABS: Urine Blood 3+ (Negative); Urine Glucose Negative (Negative); Urine Protein 1+ (Negative); Urine Specific Gravity >=1.030 (1.005-1.030)
== END 2021-12-05 13:43 | disposition home or self-care (01) ==
LOC: ER 08:09
DX: N13.2 Hydronephrosis with renal and ureteral calculous obstruction (principal); D72.829 Elevated white blood cell count, unspecified; E66.01 Morbid (severe) obesity due to excess calories; F17.210 Nicotine dependence, cigarettes, uncomplicated; Z87.442 Personal history of urinary calculi; Z88.8 Allergy status to other drugs, medicaments and biological substances
CPT/HCPCS: 87088; 85025; 87086; 36415; 81015; 83690; 80053; 74400; 96375; 96374; 99284; J1170 ×3; J7030; J2405; 81003

== ENCOUNTER 2022-03-10 21:19 | Emergency (ER) | payer OTHER ==
--- OUTSIDE RECORDS SUMMARY | 2022-03-10 21:22 | XMS REPORT | Continuity of Care Document ---
:1985 Author Organization [facility] t Address [address] [place] [address] Care Team Providers Name Role Phone PCP, [...] rs active active ity of problems problems [facility] Allergies, Adverse Reactions, Alerts Allergy Allergy Status [...] INGREDI 08-02 ity of 00:00: [place] 00 [facility] Social History Social Habit Start Date Stop Date Quantity Comments Source Sex Assigned At Uni versity of [facility] Exposure to SARS-CoV-2 Not sure [facility] [place] (event) Medical Branch Smoking Status Start Date Stop Date Source Unknown if ever [facility] Medications Ordered Filled Start Stop [...] ity of E 05:45: 04:55 ONCE, 1 [place] (MECLIZINE) 00 :00 dose, Wed Med ical ) tablet 25 09/13/19 at Br anch mg 0045, MARCIA NaCl 0.9% 2019- No 1000mL at 999 Uni vers (NS) bolus 09-12 mL/hr, ity of infusion 04:45: 06:39 1,000 mL, Asad as 1,000 mL 00 :00 IV Medical Infusion, Branch ONCE, 1 dose, 09/12/19 at 2345, MARCIA meclizine 2019-0 Yes [id number] 25mg Take 1 U nivers 25 mg 6-17 tablet by ity of tablet 00:00: mouth [place] 00 every 6 Medical (six) Branch hours as needed for Dizziness. ondansetron 2019-0 Yes [id number] 8mg Take 2 Univers 4 mg tablet 6-17 tablets by it y of 00:00: mouth [place] 00 every 8 Medical (eight) Branch hours as needed (Dizziness and/or Nausea). albuterol 2019-0 Yes [id number] 2{puff} Inhale 2 Univers 90 6-17 Puffs [...] Branch hours as needed for Alternate with [place] for pain scale 1-3. Vital Signs Vital Name Observation Time Observation Value Comments Source Systolic blood 2019-09-13 06:00:00 147 mm[Hg] Univer sity [facility] Diastolic blood 2019-09-13 06:00:00 74 mm[facility]Hg[facility] rate 2019-09-13 06:00:00 74 /min [facility] Respiratory rate 2019-09-13 06:00:00 26 /min [facility] Oxygen saturation in 2019-09-13 06:00:00 98 /min [facility] Arterial blood by [facility] Pulse oximetry [place] Body temperature 2019-09-13 04:11:00 36.17 Karishma [facility] Body height 2019-09-13 04:10:00 193 cm [facility] Body weight 2019-09-13 04:10:00 190.057 kg [facility] BMI 2019-09-13 04:10:00 51.00 kg/m2 [facility] Systolic blood 2019-09-13 06:00:00 147 mm[Hg] Univer sity [facility] Diastolic blood 2019-09-13 06:00:00 74 mm[Hg] Unive rsity of [facility] Heart rate 2019-09-13 06:00:00 74 /min [facility] Respiratory rate 2019-09-13 06:00:00 26 /min [facility] Oxygen saturation in 2019-09-13 06:00:00 98 /min [facility] Arterial blood by [facility] Pulse oximetry Branch Body temperature 2019-09-13 04:11:00 36.17 Karishma [facility] Body height 2019-09-13 04:10:00 193 cm [facility] Body weight 2019-09-13 04:10:00 190.057 kg [facility] BMI 2019-09-13 04:10:00 51.00 kg/m2 [facility] Procedures Procedure Date / Time Performing Clinician Source Performed LIPASE 2019-09-13 04:55:00 Brie Rahman [facility] TROPONIN I 2019-09-13 04:55:00 Brie Rahman [facility] HEPATIC FUNCTION PANEL 2019-09-13 04:55:[address] [facility] ([id number]) (ALB,T.PRO,BILI [facility] T,BU/BC,ALT,AST,ALK PHOS) BASIC METABOLIC PANEL 2019-09-13 04:55:00 Brie Rahman [facility] (NA, K, CL, CO2, [facility] Branch GLUCOSE, BUN, CREATININE, CA) CBC WITH DIFFERENTIAL 2019-09-13 04:55:00 Brie Rahman [facility] PROTHROMBIN TIME / INR 2019-09-13 04:55:00 Brie Rahman [facility] ACTIVATED PARTIAL 2019-09-13 04:55:00 Brie Rahman [facility] THRMPLAS PAULA [facility] N-TERMINAL PRO-BNP 2019-09-13 04:55:00 Brie Rahman [facility] COVID-19 (ID NOW RAPID 2019-09-13 04:55:[address] [facility] TESTING) [facility] EKG-12 LEAD 2019-09-13 04:42:11 Brie Rahman [facility] ASSIGNMENT OF BENEFITS 2019-09-13 03:57:21 Doctor Unassigned, No [facility] NOTICE OF PRIVACY 2019-09-13 03:57:04 Doctor Unassigned, No [facility] PRACTICES [facility] CONSENT/REFUSAL FOR 2019-09-13 03:56:48 Doctor Unassigned, No [facility] DIAGNOSIS AND TREATMENT Name Medical Branch Encounters Start End Encounter Admission Attending Care Care Encounter Source Date/Time Date/Time Type Type Clinicians Facility Department ID 2019-09-12 2019-09-13 Emergency [facility] [id number] 22:58:32 01:47:00 Brie Broderick [id number] [place] [id number] [place] [id number] 2019-09-12 2019-09-13 Emergency Malena [facility] [id number] Univers 22:58:32 01:47:00 Brie Broderick [id number] ity [facility] [id number] [facility] [id number] [place] [id number] Branch 2019-09-12 2019-09-13 Emergency X MALENA [facility] ERT [id number] Univers 22:58:32 01:47:00 BRIE froilan [facility] Results Test Description Test Time Test Comments Results Result Comments Source Troponin I 2019-09-13 05:29:00 Test Item Value Reference Range Interpretation Comme nts TROPONIN I (test code = <0.012 See_Comment [Au tomated message] The 8240862491) system which ge nerated this result tra [...] ? Lab Interpretation (test Normal code = 94878-0) [id number] 05:26:00 Test Item Value Reference Range Interpretation Comments NT-proBNP (test code 13 pg/mL See_Comment [Autom ated = 9170768183) message] The system which generated this result transmitted reference range : <=125. The reference range was not used to interpret this result as normal/abnormal . EVARISTO (test code = EVARISTO) Biotin has been reported to cause a negative bias, interpret results relative to patient's use of biotin. Lab Interpretation Normal (test code = 29704-4) [facility] (ID NOW RAPID TESTING)2019-09-13 05:19:00 Test Item Value Reference Range Interpretation Comments SARS-CoV-2 Rapid ID NOW Not Detected Not Detected (test code = 84692-5) EVARISTO (test code = EVARISTO) ID NOW COVID-19 Assay is an isothermal nucleic acid amplification test intended for the qualitative detection of nucleic acid from SARS-CoV-2 viral RNA in nasopharyngeal (ROLLING MACHINE OPERATOR) specimens. It is used under Emergency [...] indicated. Lab Interpretation Normal (test code = 61701-9) [facility] (NA, K, CL, CO2, GLUCOSE, BUN, CREATININE, CA)2019-09-13 05:17:00 Test Item Value Reference Range Interpretation Comments NA (test code = 136 mmol/L 135-145 7836482646) K (test code = 5.3 mmol/L 3.5-5 H 1144142250) CL (test code = 100 mmol/L 98-108 9646438008) CO2 TOTAL (test code = 26 mmol/L 23-31 3921856667) AGAP (test code = 2-16 4882681169) BUN (test code = 11 mg/dL 7-23 7178390823) GLUCOSE (test code = 162 mg/dL 70-110 H 7102510940) CREATININE (test code = 1.18 mg/dL 0.6-1.25 9943731131) CALCIUM (test code = 9.9 mg/dL 8.6-10.6 8671524464) eGFR Calculation mL/min/1.73m2 (Non-) (test code = 8606270772) eGFR Calculation mL/min/1.73m2 () (test code = 6449171342) EVARISTO (test code = EVARISTO) Association of [...] tests). Lab Interpretation Abnormal (test code = 66805-1) [facility] (ALB, T.PRO, BILI T, BU/BC, ALT, AST, ALK PHOS)2019-09-13 05:17:00 Test Item Value Reference Range Interpretation Comments TOTAL BILI (test code = 2089351492) 0.5 mg/dL 0.1-1.1 BILI UNCON (test code = 7633994890) 0.4 mg/dL 0.1-1.1 BILI CONJ (test code = 7815555498) 0.0 mg/dL 0-0.3 T PROTEIN (test code = 1036727425) 9.2 g/dL 6.3-8.2 H ALBUMIN (test code = 3200342712) 4.9 g/dL 3.5-5 ALK PHOS (test code = 9571995731) 76 U/L 34-122 ALTv (test code = 1742-6) 60 U/L 5-50 H AST(SGOT) (test code = 9300542384) 44 U/L 13-40 H Lab Interpretation (test code = Abnormal 77656-7) [facility] Center[facility] [id number] 05:17:00 Test Item Value Reference Range Interpretation Comments LIPASE (test code = 7692899620) 48 U/L 0-220 Lab Interpretation (test code = Normal 62963-0) [facility] CenteraPTT2020-06-17 05:13:00 Test Item Value Reference Range Interpretation Comments APTT Patient (test See_Comment [Automat ed code = 3173-2) message] The system which generated this result transmitted reference range : 23 - 38 Seconds . The reference range was not used to interpr et this result as normal/abnormal . EVARISTO (test code = EVARISTO) The [facility] patient population mean normal value for aPTT is 30 seconds. Lab Interpretation Normal (test code = 92509-7) [facility] Center[facility]th[facility]bin Time (PT) / [id number] 05:11:00 Test Item Value Reference Range Interpretation [...] tions. Lab Interpretation (test Normal code = 36416-2) [facility] WITH [id number] 05:04:00 Test Item Value Reference Range Interpretation Comments WBC (test code = See_Comment H [Automated 7790-2) message] The sy stem which generated this [...] RDW-SD (test code = 39.8 fL 38.5-51.6 94952-5) RDW-CV (test code = 12.8 % 12.1-15.4 788-0) PLT (test code = See_Comment H [Automated 777-3) message] The sy stem which generated this result transmitted reference range : 150 - 328 10*3/ ?L. The reference r larisa was not used to interpret this result as normal/abnormal . MPV (test code = 10.3 fL 9.8-13 21743-7) NRBC/100 WBC (test See_Comment [Automat ed code = 0683881255) message] The system which generated this result transmitted reference range : 0.0 - 10.0 /100 WBCs. The refer ence range was not u sed to interpret th is result as normal/abnormal . NRBC x10^3 (test code <0.01 See_Comment [Auto mated = 0587872196) message] The s ystem which generated this result transmitted reference range : 10*3/?L. The reference range was not used to interpret this result as normal/abnormal . GRAN MAT (NEUT) % 83.5 % (test code = 770-8) IMM GRAN % (test code 0.90 % = 1883585124) LYMPH % (test code = 11.4 % 736-9) MONO % (test code = 3.3 % 5905-5) EOS % (test code = 0.6 % 713-8) BASO % (test code = 0.3 % 706-2) GRAN MAT x10^3(ANC) 9.73 10*3/uL 1.99-6.95 H (test code = 5874876056) IMM GRAN x10^3 (test 0.10 10*3/uL 0-0.06 H code = 6030348981) LYMPH x10^3 (test code 1.33 10*3/uL 1.09-3.23 = 731-0) MONO x10^3 (test code 0.38 10*3/uL 0.36-1.02 = 742-7) EOS x10^3 (test code = 0.07 10*3/uL 0.06-0.53 711-2) BASO x10^3 (test code 0.04 10*3/uL 0.01-0.09 = 704-7) Lab Interpretation Abnormal (test code = 47346-9) [facility]"
[2022-03-10] MEDS ORDERED: NA CHLORIDE 0.9% 1,000 ML ONE (22:20)
[2022-03-10 22:59] LABS: Absolute Lymphocytes (CBC) 1.9 K/uL (0.7-4.9); Lymphocytes % 18.1 % (15.3-44.8); MCV 85.8 fL (80-100); MPV 8.1 fL (7.6-11.3); RBC Red Blood Cell Count 4.66 M/uL (4.33-5.43)
[2022-03-10 23:01] LABS: Protime INR 1.05
[2022-03-10] MEDS ORDERED: ONDANSETRON 4 MG/2 ML VIAL ONE (23:11)
[2022-03-10] MEDS ORDERED: MORPHINE 4 MG/ML SYR ONE (23:11)
[2022-03-10 23:14] LABS: Potassium 3.5 mmol/L (3.5-5.1)
[2022-03-10] MEDS ORDERED: HYDROMORPHONE HCL 1 MG/ML INJ ONE (23:23)
[2022-03-10] MEDS ORDERED: CLINDAMYCIN 900MG/D5W 900 MG/50 ML IVPB IV ONE (23:49)
--- NOTE | 2022-03-11 01:28 | ER ---
Nurse's Notes [facility] Name: Dhiraj Peguero Age: 37 yrs Sex: Male : 1985 Arrival Date: 03/10/2022 Time: 21:22 Bed 9 Private MD: Diagnosis: Cellulitis and acute lymphangitis of face and neck Presentation: 03/10 22:30 Chief complaint: Patient states: abscess on R side of neck appeared Wednesday after eh3 shaving, has continued to grow since then. Coronavirus screen: Vaccine status: Patient reports being unvaccinated. Ebola Screen: No symptoms or risks identified at this time. Initial Sepsis Screen: Does the patient meet any 2 criteria? No. Patient's initial sepsis screen is negative. Does the patient have a suspected source of infection? Yes: Skin breakdown/wound. Risk Assessment: Do you want to hurt yourself or someone else? Patient reports no desire to harm self or others. Onset of symptoms was March 10, 2022. 22:30 Method Of Arrival: Ambulatory 3 22:30 Acuity: JUAN DIEGO 3 eh3 Triage Assessment: 22:30 General: Appears in no apparent distress. uncomfortable, Behavior is calm, cooperative, eh3 appropriate for age. Pain: Complains of pain in right submandibular area, right lateral aspect of neck and right anterior aspect of neck. EENT: No signs and/or symptoms were reported regarding the EENT system. Neuro: Level of Consciousness is awake, alert, obeys commands, Oriented to person, place, time, situation. Cardiovascular: Capillary refill < 3 seconds Patient's skin is warm and dry. Respiratory: Airway is patent Respiratory effort is even, unlabored, Respiratory pattern is regular, symmetrical. GI: No signs and/or symptoms were reported involving the gastrointestinal system. Abdomen is round non-distended. : No signs and/or symptoms were reported regarding the genitourinary system. Derm: Abscess located on neck is golf ball sized. Musculoskeletal: No signs and/or symptoms reported regarding the musculoskeletal system. Circulation, motion, and sensation intact. Range of motion: intact in all extremities. Historical: - Allergies: 22:56 Phenergan; eh3 - PMHx: 22:56 Kidney stones; Sleep Apnea; Sciatica; eh3 - PSHx: 22:56 Appendectomy; Cholecystectomy; eh3 - Immunization history:: Adult Immunizations not up to date. - Social history:: Smoking status: Patient reports the use of cigarette tobacco products, smokes one pack cigarettes per day. Patient uses alcohol, occasionally. Screenin:30 [facility] ED Fall Risk Assessment (Adult) History of falling in the last 3 months, 3 including since admission No falls in past 3 months (0 pts) Confusion or Disorientation No (0 pts) Intoxicated or Sedated No (0 pts) Impaired Gait No (0 pts) Mobility Assist Device Used No (0 pt) Altered Elimination No (0 pt) Score/Fall Risk Level 0 - 2 = Low Risk. Humpty Dumpty Scale Fall Assessment Tool (age< 18yrs) Age 13 years and above (1 pt) Gender Male (2 pts) Diagnosis Other diagnosis (1 pt) Cognitive Impairments Oriented to own ability (1 pt) Environmental Factors Patient placed in bed (2 pts) Response to Surgery/Sedation/Anesthesia More than 48 hours/ None (1 pt) Medication Usage Other medications/ None (1 pt) Fall Risk Score/ Level Low Fall Risk: </= 11 points. Abuse screen: Denies threats or abuse. Denies injuries from another. Nutritional screening: No deficits noted. Tuberculosis screening: No symptoms or risk factors identified. Fall Risk No fall in past 12 months (0 pts). IV access (20 points). Total Garrido Fall Scale indicates No Risk (0-24 pts). Assessment: 22:30 Reassessment: No changes from previously documented assessment. See triage assessment. 3 23:30 Reassessment: Patient appears in no apparent distress at this time. Patient and/or 3 family updated on plan of care and expected duration. Pain level reassessed. Patient is alert, oriented x 3, equal unlabored respirations, skin warm/dry/pink. 03/11 01:51 Reassessment: Patient is alert, oriented x 3, equal unlabored respirations, skin bb warm/dry/pink. pt verbalized understanding of and agrees to plan of care discharge instructions given pt ambulated with steady gait to exit. Vital Signs: 03/10 22:30 BP 151 / 85; Pulse 74; Resp 16; Temp 98.4(O); Pulse Ox 97% ; Weight 190.51 kg; Height 6 eh3 ft. 4 in. (193.04 cm); Pain 9/10; 23:27 Weight 197.6 kg (M); bb 23:30 BP 135 / 113; Pulse 80; Resp 18; Pulse Ox 98% on R/A; eh3 03/11 01:52 BP 152 / 76; Pulse 70; Resp 18 S; Temp 98.3(O); Pulse Ox 99% on R/A; bb 03/10 23:27 Body Mass Index 53.03 (197.60 kg, 193.04 cm) ED Course: 03/10 21:22 Patient arrived in ED. bp1 21:23 Yonathan Davis PA is PHCP. cp 21:23 Daryl Chew MD is Attending Physician. cp 22:16 Manisha Hernández, VAHID is Primary Nurse. eh3 22:30 Arm band placed on right wrist. eh3 22:30 Patient has correct armband on for positive identification. Bed in low position. Call eh3 light in reach. Side rails up X2. Pulse ox on. NIBP on. Door closed. Noise minimized. Lights dimmed. 22:40 Inserted saline lock: 20 gauge in right antecubital area, using aseptic technique. eh3 Blood collected. 22:56 Triage completed. 3 03/11 00:06 US Extrmty Nonvasular Limited In Process Unspecified. EDMS 01:52 No provider procedures requiring assistance completed. IV discontinued, intact, bb bleeding controlled, No redness/swelling at site. Pressure dressing applied. Administered Medications: 03/10 10:40 Drug: NS 0.9% 1000 ml Route: IV; Rate: 1 bolus; Site: right antecubital; 3 03/11 01:25 Follow up: IV Status: Completed infusion; IV Intake: 950ml 03/10 23:20 Not Given (Patient Refused): morphine 4 mg IVP once over 4 mins 3 23:30 Drug: Zofran (Ondansetron) 4 mg Route: IVP; Site: right antecubital; 3 23:51 Follow up: Response: No adverse reaction 3 23:30 Drug: Dilaudid (HYDROmorphone) 1 mg Route: IVP; Site: right antecubital; 3 23:51 Follow up: Response: Pain is decreased [facility] 03/11 00:10 Drug: Clindamycin 900 mg Route: IVPB; Infused Over: 30 mins; Site: right antecubital; 3 00:40 Follow up: IV Status: Completed infusion; IV Intake: 50ml bb 01:40 Drug: Bactrim (trimethoprim-sulfamethoxazole) (160 mg-800 mg (DS) 2 tabs Route: PO; bb 01:45 Follow up: Response: Medication administered at discharge. bb 01:45 Not Given (Patient Refused): HYDROcodone-acetaminophen 10 mg-325 mg 1 tabs PO once bb Medication: 01:53 VIS not applicable for this client. bb Intake: 00:40 IV: 50ml; Total: 50ml. bb 01:25 IV: 950ml; Total: 1000ml. bb Outcome: 01:28 Discharge ordered by MD. cp 01:52 Discharged to home ambulatory. bb 01:52 Condition: stable 01:52 Discharge instructions given to patient, Instructed on discharge instructions, follow up and referral plans. no driving heavy equipment, medication usage, Demonstrated understanding of instructions, follow-up care, medications, Prescriptions given X 4. 01:53 Patient left the ED. bb Signatures: Dispatcher [employer] EDCiara Lafleur RN RN bb Yonathan Davis, ALEXX PA Pratibha Jones Erin, RN RN 3 Corrections: (The following items were deleted from the chart) 03/10 22:59 22:30 BP 151 / 85; Pulse 74bpm; Resp 16bpm; Pulse Ox 97%; 190.51 kg; Height 6 ft. 4 eh3 in.; BMI: 51.1; Pain 9/10; eh3 23:51 23:51 Response: Pain is decreased eh3 eh3
--- NOTE | 2022-03-11 01:29 | EDPHYS ---
Physician Documentation [facility] Name: Dhiraj Peguero Age: 37 yrs Sex: Male : 1985 Arrival Date: 03/10/2022 Time: 21:22 Bed 9 Private MD: ED Physician Daryl Chew HPI: 03/10 22:20 This 37 yrs old Male presents to ER via Ambulatory with complaints of Abscess. cp 22:20 the patient presents with a swollen area of the right facial cheek and right lower jaw cp and right neck. Description: erythematous, swollen, tense, warm. Onset: The symptoms/episode began/occurred 2 day(s) ago, after shaving. Associated signs and symptoms: The patient has no apparent associated signs or symptoms. Severity of symptoms: in the emergency department the symptoms are unchanged, despite home interventions. Historical: - Allergies: 22:56 Phenergan; eh3 - PMHx: 22:56 Kidney stones; Sleep Apnea; Sciatica; eh3 - PSHx: 22:56 Appendectomy; Cholecystectomy; eh3 - Immunization history:: Adult Immunizations not up to date. - Social history:: Smoking status: Patient reports the use of cigarette tobacco products, smokes one pack cigarettes per day. Patient uses alcohol, occasionally. ROS: 22:25 Constitutional: Negative for body aches, chills, fever, poor PO intake. cp 22:25 Eyes: Negative for injury, pain, redness, and discharge. cp 22:25 ENT: Negative for drainage from ear(s), sore throat, difficulty swallowing, difficulty handling secretions. 22:25 Cardiovascular: Negative for chest pain, palpitations. 22:25 Respiratory: Negative for cough, shortness of breath, wheezing. 22:25 Abdomen/GI: Negative for abdominal pain, nausea, vomiting, and diarrhea. 22:25 Skin: Positive for erythema, swelling, of the right facial cheek and right lower jaw and right side of neck. 22:25 Neuro: Negative for altered mental status, dizziness, headache, numbness, weakness. 22:25 All other systems are negative. Exam: 22:30 Constitutional: The patient appears in no acute distress, alert, awake, cp non-diaphoretic, non-toxic, well developed, well nourished, obese, uncomfortable. 22:30 Head/face: Noted is erythema, that is moderate, swelling, that is mild, of the right cp cheek and right mandible and behind right ear, tenderness, that is moderate. 22:30 Eyes: Periorbital structures: appear normal, Conjunctiva: normal, no exudate, no injection, Sclera: no appreciated abnormality, Lids and lashes: appear normal, bilaterally. 22:30 ENT: External ear(s): are unremarkable, Ear canal(s): are normal, clear, TM's: bulging, is not appreciated, bilaterally, dullness, bilaterally, erythema, is not appreciated, bilaterally, Nose: is normal, Mouth: Lips: moist, Oral mucosa: pink and intact, moist, Posterior pharynx: Airway: no evidence of obstruction, patent, swelling, is not appreciated, erythema, is not appreciated, exudate, is not appreciated. 22:30 Neck: External neck: tenderness, that is moderate, right upper lateral neck, ROM/movement: is normal, is supple, no meningismus, no nuchal rigidity. 22:30 Chest/axilla: Inspection: normal. 22:30 Cardiovascular: Rate: normal, Rhythm: regular. 22:30 Respiratory: the patient does not display signs of respiratory distress, Respirations: normal, no use of accessory muscles, no retractions, labored breathing, is not present, Breath sounds: are clear throughout, no decreased breath sounds, no stridor, no wheezing. 22:30 Abdomen/GI: Inspection: obese Palpation: abdomen is soft and non-tender. 22:30 Back: pain, is absent, ROM is normal. 22:30 Neuro: Motor: is normal, Sensation: is normal, Gait: is steady. Vital Signs: 22:30 BP 151 / 85; Pulse 74; Resp 16; Temp 98.4(O); Pulse Ox 97% ; Weight 190.51 kg; Height 6 eh3 ft. 4 in. (193.04 cm); Pain 9/10; 23:27 Weight 197.6 kg (M); bb 23:30 BP 135 / 113; Pulse 80; Resp 18; Pulse Ox 98% on R/A; eh3 03/11 01:52 BP 152 / 76; Pulse 70; Resp 18 S; Temp 98.3(O); Pulse Ox 99% on R/A; bb 03/10 23:27 Body Mass Index 53.03 (197.60 kg, 193.04 cm) MDM: 03/10 22:15 Patient medically screened. cp 23:05 ED course: Received call from CT reporting unable to perform ordered CTs due to weight cp of patient being over [address] Chew will use US probe over area of concern for abscess. 03/11 01:28 Data reviewed: vital signs, nurses notes, lab test result(s), radiologic studies, cp ultrasound, I have discussed the patient's presentation/case with the attending Emergency Department Physician; and as a result, I will discharge patient. 01:28 Counseling: I had a detailed discussion with the patient and/or guardian regarding: the cp historical points, exam findings, and any diagnostic results supporting the discharge/admit diagnosis, lab results, radiology results, smoking cessation. ED course: VSS. Labs and US report reviewed that was not showing definite abscess. Patient appears non-toxic and able to swallow and no signs of respiratory compromise. Will treat with outpatient antibiotics. Patient given strict return precautions to seek immediate attn worsening symptoms. 03/10 22:15 Order name: CBC with Diff; Complete Time: 23:09 cp 03/10 23:09 Interpretation: Normal except: HGB 13.5; EOSINOPHIL % 6.8; EOSA 0.7. 03/10 22:15 Order name: BMP; Complete Time: 23:29 cp 03/10 22:15 Order name: Lactate w/ 2H reflex if indic.; Complete Time: 23:29 cp 03/10 22:15 Order name: PT-INR; Complete Time: 23:09 cp 03/10 23:29 Order name: US Extrmty Nonvasular Limited 03/10 22:15 Order name: IV; Complete Time: 22:49 cp Administered Medications: 03/10 10:40 Drug: NS 0.9% 1000 ml Route: IV; Rate: 1 bolus; Site: right antecubital; [facility] 03/11 01:25 Follow up: IV Status: Completed infusion; IV Intake: 950ml 03/10 23:20 Not Given (Patient Refused): morphine 4 mg IVP once over 4 mins [facility] 23:30 Drug: Zofran (Ondansetron) 4 mg Route: IVP; Site: right antecubital; [facility] 23:51 Follow up: Response: No adverse reaction eh3 23:30 Drug: Dilaudid (HYDROmorphone) 1 mg Route: IVP; Site: right antecubital; 3 23:51 Follow up: Response: Pain is decreased 3 03/11 00:10 Drug: Clindamycin 900 mg Route: IVPB; Infused Over: 30 mins; Site: right antecubital; 3 00:40 Follow up: IV Status: Completed infusion; IV Intake: 50ml bb 01:40 Drug: Bactrim (trimethoprim-sulfamethoxazole) (160 mg-800 mg (DS) 2 tabs Route: PO; bb 01:45 Follow up: Response: Medication administered at discharge. bb 01:45 Not Given (Patient Refused): HYDROcodone-acetaminophen 10 mg-325 mg 1 tabs PO once bb Disposition Summary: 03/11/22 01:28 Discharge Ordered Location: Home cp Problem: new cp Symptoms: have improved cp Condition: Stable cp Diagnosis - Cellulitis and acute lymphangitis of face and neck cp Followup: cp - With: Emergency Department - When: As needed - Reason: Worsening of condition Discharge Instructions: - Discharge Summary Sheet cp - Cellulitis, Adult cp Forms: - Medication Reconciliation Form cp - Thank You Letter cp - Antibiotic Education cp - Prescription Opioid Use cp - Work release form bb Prescriptions: - Clindamycin HCl 300 mg Oral Capsule - take 1 capsule by ORAL route every 6 hours for 10 days; 40 capsule; Refills: 0, cp Product Selection Permitted - Diclofenac Sodium 75 mg Oral Tablet Sustained Release - take 1 tablet by ORAL route 2 times per day; 30 tablet; Refills: 0, Product cp Selection Permitted - Bactrim DS 800-160 mg Oral Tablet - take 1 tablet by ORAL route every 12 hours for 10 days; 20 tablet; Refills: 0, cp Product Selection Permitted - Tylenol-Codeine #3 300 mg-30 mg Oral - take 2 tablet by ORAL route every 6-8 hours; 14 tablet; Refills: 0, Product cp Selection Permitted Signatures: Dispatcher [employer] Ciara López RN RN bb Daryl Chew MD MD rn Page, Corey, PA PA cp Hall, Erin, RN RN eh3 Corrections: (The following items were deleted from the chart) 03/10 23:04 22:15 Facial Bones W/ Con \T\ MPR+CT.RAD.BRZ ordered. EDMS EDMS 23: 22:15 Soft Tissue Neck W/Contr+CT.RAD.BRZ ordered. EDMS EDMS 03/11 01:43 03/10 23:31 BLOOD CULTURE*+BA.LAB.BRZ ordered. EDMS EDMS
[2022-03-11] MEDS ORDERED: HYDROCODONE/APAP 10/325 TAB ONE (01:36)
[2022-03-11] MEDS ORDERED: SMZ./TMP. 800/160 MG TABLET ONE (01:36)
[2022-03-11 02:00] VITALS: BP 152/76; TEMP 98.3; O2SAT 99
--- NOTE | 2022-03-11 11:35 | RAD REPORT ---
EXAM DESCRIPTION: Extremity Nonvascular Limited CLINICAL HISTORY: 37 years Male SWELLING Extremity Nonvascular Limited COMPARISON: None TECHNIQUE: Real-time sonography of the right retro-auricular region was performed in the region of clinical suspicion. FINDINGS: 2 complex cystic regions are identified. 1.1 x 0.7 x 1 cm well-circumscribed complex cysti c lesion posterior right retro-auricular region. Second 1.1 x 0.5 x 1.1 cm complex cystic lesion in ferior right auricular region. These findings correlate with the region of the clinical suspicion. IMPRESSION: 2 complex cystic lesions periauricular soft tissues correlating with regions of clinical suspicion. Inflammatory process versus posttraumatic change could be considered. Neoplasm less likel y. Electronically signed by: Vashti Marinelli MD 03/11/2022 12:24 AM INDUSTRIAL ILLUMINATING ENGINEER Due to temporary technical issues with the PACS/Fluency reporting system, reports are being signed by the in house radiologists without review as a courtesy to insure prompt reporting. The interpreting radiologist is fully responsible for the content of the report.
== END 2022-03-11 01:53 | disposition home or self-care (01) ==
LOC: ER 21:19
DX: L03.211 Cellulitis of face (principal); L03.221 Cellulitis of neck; L03.212 Acute lymphangitis of face; L03.222 Acute lymphangitis of neck; F17.210 Nicotine dependence, cigarettes, uncomplicated; Z88.8 Allergy status to other drugs, medicaments and biological substances
CPT/HCPCS: 85025; 80048; 36415; 85610; 83605; 76882; J1170; J7030; J2405

== ENCOUNTER 2022-08-13 04:59 | Emergency (ER) | payer OTHER ==
--- OUTSIDE RECORDS SUMMARY | 2022-08-13 05:02 | XMS REPORT | Continuity of Care Document ---
:1985 Author Organization [facility] t Address [address] [place] [address] Care Team Providers Name Role Phone PCP, [...] rs active active ity of problems problems [facility] Allergies, Adverse Reactions, Alerts Allergy Allergy Status [...] INGREDI 08-02 ity of 00:00: [place] 00 [facility] Social History Social Habit Start Date Stop Date Quantity Comments Source Sex Assigned At Uni versity of [facility] Exposure to SARS-CoV-2 Not sure [facility] [place] (event) Medical Branch Smoking Status Start Date Stop Date Source [facility] Medications Ordered Filled Start Stop [...] ity of E 05:45: 04:55 ONCE, 1 [place] (MECLIZINE) 00 :00 dose, Wed Med ical ) tablet 25 09/13/19 at Br anch mg 0045, MARCIA NaCl 0.9% 2019- No 1000mL at 999 Uni vers (NS) bolus 09-12 mL/hr, ity of infusion 04:45: 06:39 1,000 mL, Asad as 1,000 mL 00 :00 IV Medical Infusion, Branch ONCE, 1 dose, 09/12/19 at 2345, MARCIA meclizine 2019-0 Yes [id number] 25mg Take 1 U nivers 25 mg 6-17 tablet by ity of tablet 00:00: mouth [place] 00 every 6 Medical (six) Branch hours as needed for Dizziness. ondansetron 2019-0 Yes [id number] 8mg Take 2 Univers 4 mg tablet 6-17 tablets by it y of 00:00: mouth [place] 00 every 8 Medical (eight) Branch hours as needed (Dizziness and/or Nausea). albuterol 2019-0 Yes [id number] 2{puff} Inhale 2 Univers 90 6-17 Puffs [...] Branch hours as needed for Alternate with [place] for pain scale 1-3. Vital Signs Vital Name Observation Time Observation Value Comments Source Systolic blood 2019-09-13 06:00:00 147 mm[Hg] [facility] Diastolic blood 2019-09-13 06:00:00 74 [facility]Hg[facility] Heart rate 2019-09-13 06:00:00 74 /min [facility] Respiratory rate 2019-09-13 06:00:00 26 /min [facility] Oxygen saturation in 2019-09-13 06:00:00 98 /min [facility] Arterial blood by [facility] Pulse oximetry [place] Body temperature 2019-09-13 04:11:00 36.17 Karishma [facility] Body height 2019-09-13 04:10:00 193 cm [facility] Body weight 2019-09-13 04:10:00 190.057 kg [facility] BMI 2019-09-13 04:10:00 51.00 kg/m2 [facility] Systolic blood 2019-09-13 06:00:00 147 mm[Hg] Univer sity [facility] Diastolic blood 2019-09-13 06:00:00 74 mm[Hg] Unive rsity of [facility] Heart rate 2019-09-13 06:00:00 74 /min [facility] Respiratory rate 2019-09-13 06:00:00 26 /min [facility] Oxygen saturation in 2019-09-13 06:00:00 98 /min [facility] Arterial blood by [facility] Pulse oximetry Branch Body temperature 2019-09-13 04:11:00 36.17 Karishma [facility] Body height 2019-09-13 04:10:00 193 cm [facility] Body weight 2019-09-13 04:10:00 190.057 kg [facility] BMI 2019-09-13 04:10:00 51.00 kg/m2 [facility] Procedures Procedure Date / Time Performing Clinician Source Performed LIPASE 2019-09-13 04:55:00 Brie Rahman [facility] TROPONIN I 2019-09-13 04:55:00 Brie Rahman [facility] HEPATIC FUNCTION PANEL 2019-09-13 04:55:00 Brie Rahman [facility] ([id number]) (ALB,T.PRO,BILI [facility] T,BU/BC,ALT,AST,ALK PHOS) BASIC METABOLIC PANEL 2019-09-13 04:55:00 Brie Rahman [facility] (NA, K, CL, CO2, [facility] Branch GLUCOSE, BUN, CREATININE, CA) CBC WITH DIFFERENTIAL 2019-09-13 04:55:00 Brie Rahman [facility] PROTHROMBIN TIME / INR 2019-09-13 04:55:00 Brie Rahman [facility] ACTIVATED PARTIAL 2019-09-13 04:55:00 Brie Rahman [facility] THRMPLAS PAULA [facility] N-TERMINAL PRO-BNP 2019-09-13 04:55:00 Brie Rahman [facility] COVID-19 (ID NOW RAPID 2019-09-13 04:55:00 Brie Rahman [facility] TESTING) [facility] EKG-12 LEAD 2019-09-13 04:42:11 Brie Rahman [facility] ASSIGNMENT OF BENEFITS 2019-09-13 03:57:21 Doctor Unassigned, No [facility] NOTICE OF PRIVACY 2019-09-13 03:57:04 Doctor Unassigned, No [facility] PRACTICES [facility] CONSENT/REFUSAL FOR 2019-09-13 03:56:48 Doctor Unassigned, No [facility] DIAGNOSIS AND TREATMENT Name Medical Branch Encounters Start End Encounter Admission Attending Care Care Encounter Source Date/Time Date/Time Type Type Clinicians Facility Department ID 2019-09-12 2019-09-13 Emergency [facility] [id number] 22:58:32 01:47:00 Brie Broderick [id number] [place] [id number] [place] [id number] 2019-09-12 2019-09-13 Emergency Malena [facility] [id number] Univers 22:58:32 01:47:00 Brie Broderick [id number] ity [facility] [id number] [facility] [id number] [place] [id number] Branch 2019-09-12 2019-09-13 Emergency X MALENA [facility] ERT [id number] Univers 22:58:32 01:47:00 BRIE froilan [facility] Results Test Description Test Time Test Comments Results Result Comments Source Troponin I 2019-09-13 05:29:00 Test Item Value Reference Range Interpretation Comme nts TROPONIN I (test code = <0.012 See_Comment [Au tomated message] The 5107743001) system which ge nerated this result tra [...] ? Lab Interpretation (test Normal code = 64445-2) [id number] 05:26:00 Test Item Value Reference Range Interpretation Comments NT-proBNP (test code 13 pg/mL See_Comment [Autom ated = 7213678722) message] The system which generated this result transmitted reference range : <=125. The reference range was not used to interpret this result as normal/abnormal . EVARISTO (test code = EVARISTO) Biotin has been reported to cause a negative bias, interpret results relative to patient's use of biotin. Lab Interpretation Normal (test code = 19205-7) [facility] (ID NOW RAPID TESTING)2019-09-13 05:19:00 Test Item Value Reference Range Interpretation Comments SARS-CoV-2 Rapid ID NOW Not Detected Not Detected (test code = 42677-7) EVARISTO (test code = EVARISTO) ID NOW COVID-19 Assay is an isothermal nucleic acid amplification test intended for the qualitative detection of nucleic acid from SARS-CoV-2 viral RNA in nasopharyngeal (STEAM AND POWER SUPERINTENDENT) specimens. It is used under Emergency Use [...] indicated. Lab Interpretation Normal (test code = 59588-4) [facility] (NA, K, CL, CO2, GLUCOSE, BUN, CREATININE, CA)2019-09-13 05:17:00 Test Item Value Reference Range Interpretation Comments NA (test code = 136 mmol/L 135-145 6706797244) K (test code = 5.3 mmol/L 3.5-5 H 3203926172) CL (test code = 100 mmol/L 98-108 8113991872) CO2 TOTAL (test code = 26 mmol/L 23-31 7020877343) AGAP (test code = 2-16 2641452215) BUN (test code = 11 mg/dL 7-23 3001844511) GLUCOSE (test code = 162 mg/dL 70-110 H 3395119070) CREATININE (test code = 1.18 mg/dL 0.6-1.25 9403980413) CALCIUM (test code = 9.9 mg/dL 8.6-10.6 9061994477) eGFR Calculation mL/min/1.73m2 (Non-) (test code = 9894728197) eGFR Calculation mL/min/1.73m2 () (test code = 3212725950) EVARISTO (test code = EVARISTO) Association of [...] tests). Lab Interpretation Abnormal (test code = 30381-3) [facility] (ALB, T.PRO, BILI T, BU/BC, ALT, AST, ALK PHOS)2019-09-13 05:17:00 Test Item Value Reference Range Interpretation Comments TOTAL BILI (test code = 2739398659) 0.5 mg/dL 0.1-1.1 BILI UNCON (test code = 6997206152) 0.4 mg/dL 0.1-1.1 BILI CONJ (test code = 1475462578) 0.0 mg/dL 0-0.3 T PROTEIN (test code = 2296399712) 9.2 g/dL 6.3-8.2 H ALBUMIN (test code = 9100209743) 4.9 g/dL 3.5-5 ALK PHOS (test code = 4697763199) 76 U/L 34-122 ALTv (test code = 1742-6) 60 U/L 5-50 H AST(SGOT) (test code = 3653564871) 44 U/L 13-40 H Lab Interpretation (test code = Abnormal 14057-7) [facility] System[facility] [id number] 05:17:00 Test Item Value Reference Range Interpretation Comments LIPASE (test code = 9062163008) 48 U/L 0-220 Lab Interpretation (test code = Normal 31892-5) [facility] [id number] 05:13:00 Test Item Value Reference Range Interpretation Comments APTT Patient (test See_Comment [Automat ed code = 3173-2) message] The system which generated this result transmitted reference range : 23 - 38 Seconds . The reference range was not used to interpr et this result as normal/abnormal . EVARISTO (test code = EVARISTO) The [facility] patient population mean normal value for aPTT is 30 seconds. Lab Interpretation Normal (test code = 81875-9) [facility] System[facility]thrombin Time (PT) / [id number] 05:11:00 Test Item Value Reference Range Interpretation [...] tions. Lab Interpretation (test Normal code = 19219-1) [facility] WITH [id number] 05:04:00 Test Item Value Reference Range Interpretation Comments WBC (test code = See_Comment H [Automated 7490-2) message] The sy stem which generated this [...] RDW-SD (test code = 39.8 fL 38.5-51.6 64828-5) RDW-CV (test code = 12.8 % 12.1-15.4 788-0) PLT (test code = See_Comment H [Automated 777-3) message] The sy stem which generated this result transmitted reference range : 150 - 328 10*3/ ?L. The reference r larisa was not used to interpret this result as normal/abnormal . MPV (test code = 10.3 fL 9.8-13 63945-8) NRBC/100 WBC (test See_Comment [Automat ed code = 0883764509) message] The system which generated this result transmitted reference range : 0.0 - 10.0 /100 WBCs. The refer ence range was not u sed to interpret th is result as normal/abnormal . NRBC x10^3 (test code <0.01 See_Comment [Auto mated = 6386267173) message] The s ystem which generated this result transmitted reference range : 10*3/?L. The reference range was not used to interpret this result as normal/abnormal . GRAN MAT (NEUT) % 83.5 % (test code = 770-8) IMM GRAN % (test code 0.90 % = 7031294868) LYMPH % (test code = 11.4 % 736-9) MONO % (test code = 3.3 % 5905-5) EOS % (test code = 0.6 % 713-8) BASO % (test code = 0.3 % 706-2) GRAN MAT x10^3(ANC) 9.73 10*3/uL 1.99-6.95 H (test code = 1393123242) IMM GRAN x10^3 (test 0.10 10*3/uL 0-0.06 H code = 7662742776) LYMPH x10^3 (test code 1.33 10*3/uL 1.09-3.23 = 731-0) MONO x10^3 (test code 0.38 10*3/uL 0.36-1.02 = 742-7) EOS x10^3 (test code = 0.07 10*3/uL 0.06-0.53 711-2) BASO x10^3 (test code 0.04 10*3/uL 0.01-0.09 = 704-7) Lab Interpretation Abnormal (test code = 28690-9) [facility]"
--- NOTE | 2022-08-13 05:54 | ER ---
Nurse's Notes [facility] Name: Dhiraj Peguero Age: 37 yrs Sex: Male : 1985 Arrival Date: 08/13/2022 Time: 04:59 Bed 16 Private MD: Diagnosis: Knee Effusion Presentation: 08/13 05:28 Chief complaint: Patient states: twisted left knee last pm while walking dog pain kl increasing difficulty walking at this time. Coronavirus screen: Vaccine status: Patient reports being unvaccinated. Ebola Screen: Patient negative for fever greater than or equal to 101.5 degrees Fahrenheit, and additional compatible Ebola Virus Disease symptoms. Initial Sepsis Screen: Does the patient meet any 2 criteria? No. Patient's initial sepsis screen is negative. Does the patient have a suspected source of infection? No. Patient's initial sepsis screen is negative. Risk Assessment: Do you want to hurt yourself or someone else? Patient reports no desire to harm self or others. Onset of symptoms was August 12, 2022 at 22:00. 05:28 Method Of Arrival: Wheelchair 05:28 Acuity: JUAN DIEGO 4 kl Triage Assessment: 05:30 General: Appears uncomfortable, unkempt, Behavior is cooperative, agitated. Pain: kl Complains of pain in lateral aspect of left knee and posterior aspect of left knee Pain currently is 6 out of 10 on a pain scale. at worst was 10 out of 10 on a pain scale. Historical: - Allergies: 05:30 Phenergan; kl - PMHx: 05:30 Kidney stones; sciatica; Sleep Apnea; kl - PSHx: 05:30 Appendectomy; Cholecystectomy; kl - Immunization history:: Adult Immunizations not up to date. - Social history:: Smoking status: Patient reports the use of cigarette tobacco products, smokes one pack cigarettes per day. Screenin:31 [facility] ED Fall Risk Assessment (Adult) History of falling in the last 3 months, kl including since admission Yes- single mechanical fall (1 pt) Confusion or Disorientation No (0 pts) Intoxicated or Sedated No (0 pts) Impaired Gait Yes (1 pt) Mobility Assist Device Used Yes (1 pt) Altered Elimination No (0 pt) Score/Fall Risk Level 3 or more points = High Risk Oriented to surroundings, Maintained a safe environment, Assessed \T\ reinforced patient's understanding of fall precautions, Used ambulatory aids as needed (educated on \T\ assisted with). Abuse screen: Denies threats or abuse. Nutritional screening: No deficits noted. Tuberculosis screening: No symptoms or risk factors identified. Assessment: 05:32 Neuro: No deficits noted. Cardiovascular: No deficits noted. Respiratory: No deficits kl noted. GI: No deficits noted. No signs and/or symptoms were reported involving the gastrointestinal system. : No deficits noted. No signs and/or symptoms were reported regarding the genitourinary system. EENT: No deficits noted. No signs and/or symptoms were reported regarding the EENT system. Musculoskeletal: Reports pain in posterior aspect of left knee and lateral aspect of left knee. Vital Signs: 05:28 BP 126 / 77; Pulse 66; Resp 17; Temp 98.8(O); Pulse Ox 100% on R/A; Weight 192.78 kg kl (R); Height 6 ft. 4 in. ; Pain 6/10; 06:03 BP 137 / 47; Pulse 80; Resp 17; Pulse Ox 100% ; kl 05:28 Body Mass Index 51.73 (192.78 kg, 193.04 cm) kl 05:28 Pain Scale: Adult kl ED Course: 05:04 Patient arrived in ED. ja2 05:29 Kg Armstrong MD is Attending Physician. sp3 05:30 Triage completed. kl 05:31 Patient has correct armband on for positive identification. Bed in low position. Call kl light in reach. 05:48 Knee Left 3 View XRAY In Process Unspecified. EDMS 05:52 Armani Tyson MD is Referral Physician. sp3 05:57 Arm band placed on. as6 05:57 No provider procedures requiring assistance completed. Patient did not have IV access as6 during this emergency room visit. Administered Medications: No medications were administered Medication: 05:56 VIS not applicable for this client. as6 Outcome: 05:53 Discharge ordered by . sp3 05:57 Condition: stable as6 06:03 Discharged to home with crutches. kl 06:03 Discharge instructions given to patient, Instructed on discharge instructions, follow up and referral plans. medication usage, crutch walking, Demonstrated understanding of instructions, follow-up care, crutch walking. 06:11 Patient left the ED. kl Signatures: Dispatcher [employer] EDMS Surinder Annalee, RN RN kl Kg Armstrong MD MD sp3 Elisa Bustos Ashby, VAHID RN as6
--- NOTE | 2022-08-13 05:54 | EDPHYS ---
Physician Documentation [facility] Name: Dhiraj Peguero Age: 37 yrs Sex: Male : 1985 Arrival Date: 08/13/2022 Time: 04:59 Bed 16 Private MD: ED Physician Kg Armstrong HPI: 08/13 05:48 This 37 yrs old Male presents to ER via Wheelchair with complaints of Knee Pain. sp3 05:48 37-year-old male with history of sciatica presents with left knee pain for 1 hour. sp3 Patient states he was walking his dog when he felt a pop in his knee his knee collapsed. He is unable to put significant weight on that knee. No prior injuries reported. No secondary injury or other pain in any other joints reported. ROS otherwise negative.. Historical: - Allergies: 05:30 Phenergan; kl - PMHx: 05:30 Kidney stones; sciatica; Sleep Apnea; kl - PSHx: 05:30 Appendectomy; Cholecystectomy; kl - Immunization history:: Adult Immunizations not up to date. - Social history:: Smoking status: Patient reports the use of cigarette tobacco products, smokes one pack cigarettes per day. ROS: 05:50 Constitutional: Negative for fever, chills, and weight loss, Eyes: Negative for injury, sp3 pain, redness, and discharge, Neck: Negative for injury, pain, and swelling, Cardiovascular: Negative for chest pain, palpitations, and edema, Respiratory: Negative for shortness of breath, cough, wheezing, and pleuritic chest pain, Abdomen/GI: Negative for abdominal pain, nausea, vomiting, diarrhea, and constipation, MS/Extremity: Negative for injury and deformity, Skin: Negative for injury, rash, and discoloration, Neuro: Negative for headache, weakness, numbness, tingling, and seizure. 05:50 All other systems are negative. Exam: 05:50 Constitutional: This is a well developed, well nourished patient who is awake, alert, sp3 and in no acute distress. Head/Face: Normocephalic, atraumatic. Neck: Trachea midline, no thyromegaly or masses palpated, and no cervical lymphadenopathy. Supple, full range of motion without nuchal rigidity, or vertebral point tenderness. No Meningismus. Abdomen/GI: Soft, non-tender, with normal bowel sounds. No distension or tympany. No guarding or rebound. No evidence of tenderness throughout. Back: No spinal tenderness. No costovertebral tenderness. Full range of motion. Skin: Warm, dry with normal turgor. Normal color with no rashes, no lesions, and no evidence of cellulitis. Neuro: Awake and alert, GCS 15, oriented to person, place, time, and situation. Cranial nerves II-XII grossly intact. Motor strength 5/5 in all extremities. Sensory grossly intact. Cerebellar exam normal. Normal gait. 05:50 Musculoskeletal/extremity: Mild effusion in the left knee noted. Passive range of motion is present but painful. Distal neurovascular exam is normal.. Vital Signs: 05:28 BP 126 / 77; Pulse 66; Resp 17; Temp 98.8(O); Pulse Ox 100% on R/A; Weight 192.78 kg kl (R); Height 6 ft. 4 in. ; Pain 6/10; 06:03 BP 137 / 47; Pulse 80; Resp 17; Pulse Ox 100% ; kl 05:28 Body Mass Index 51.73 (192.78 kg, 193.04 cm) kl 05:28 Pain Scale: Adult kl MDM: 05:51 Data reviewed: vital signs, nurses notes, radiologic studies. ED course: 37-year-old sp3 male with left knee pain and effusion. X-ray demonstrates no fracture. Will discharge patient on knee immobilizer and crutches with orthopedic follow-up for likely MRI. Discharged on NSAIDs.. 05:53 Patient medically screened. sp3 08/13 05:36 Order name: Knee Left 3 View XRAY sp3 08/13 05:29 Order name: NPO sp3 08/13 05:54 Order name: Knee Immobilizer; Complete Time: 06:03 sp3 08/13 05:54 Order name: Crutch Training; Complete Time: 06:03 sp3 Administered Medications: No medications were administered Disposition Summary: 08/13/22 05:53 Discharge Ordered Location: Home sp3 Condition: Stable sp3 Diagnosis - Knee Effusion sp3 Followup: sp3 - With: Armani Tyson MD - When: Upon discharge from the Emergency Department - Reason: Recheck today's complaints, Continuance of care Discharge Instructions: - Discharge Summary Sheet kl - Crutch Use, Adult sp3 - How to Use a Knee Immobilizer sp3 - Acute Knee Pain, Adult sp3 Forms: - Work release form kl - Medication Reconciliation Form sp3 - Thank You Letter sp3 - Antibiotic Education sp3 - Prescription Opioid Use sp3 Prescriptions: - Diclofenac Sodium 75 mg Oral Tablet Sustained Release - take 1 tablet by ORAL route 2 times per day; 30 tablet; Refills: 0, Product sp3 Selection Permitted Signatures: Dispatcher [employer] Annalee Cunha RN RN kl Patel, Setul, MD MD sp3 Corrections: (The following items were deleted from the chart) 05:46 05:30 Knee Right 3 View+RAD.RAD.BRZ ordered. EDOH EDMS
[2022-08-13 06:17] VITALS: TEMP 98.8; O2SAT 100
[2022-08-13 06:18] VITALS: BP 137/47
--- NOTE | 2022-08-13 12:14 | RAD REPORT ---
EXAM DESCRIPTION: RAD - Knee Left 3 View - 08/13/2022 5:46 am CLINICAL HISTORY: SMASH INJURY COMPARISON: None. FINDINGS: There is no acute fracture or dislocation. The joint spaces are in anatomic alignment. No joint effusion seen on the lateral view. No radiopaque foreign bodies identified. IMPRESSION: 1. Unremarkable left knee radiographs. Electronically signed by: Yannick Gregory MD 08/13/2022 6:03 AM CDT Due to temporary technical issues with the PACS/Fluency reporting system, reports are being signed by the in house radiologists without review as a courtesy to insure prompt reporting. The interpreting radiologist is fully responsible for the content of the report.
== END 2022-08-13 06:11 | disposition home or self-care (01) ==
LOC: ER 04:59
DX: M25.462 Effusion, left knee (principal); F17.210 Nicotine dependence, cigarettes, uncomplicated; Z88.8 Allergy status to other drugs, medicaments and biological substances
CPT/HCPCS: 99283

== ENCOUNTER 2024-05-31 06:16 | Emergency (ER) | payer OTHER ==
--- OUTSIDE RECORDS SUMMARY | 2024-05-31 06:19 | XMS REPORT | Continuity of Care Document ---
Author Name Unknown Address [address] [place] [address] [facility] Address [address] [place] [address] Care Team Providers Care Reconciler Name Role Phone PCP, PATIENT DOES NOT HAVE A Primary Care Physic krish Rahman MD, Brie Johnson Attending Clinician [phone] BRIE RAHMAN Attending Clinician BRIE Gardner Admitting Clinician Maryellen sprague Payers Payer Name Policy Type Policy Number Effective Date Expirati on Date Source Problems Condition Name Condition Details Condition Category Status Onset Date Resolution Date Last Treatment Date Treating Clinician Comments Source No known active problems No known active problems Disease [facility] Allergies, Adverse Reactions, Alerts Allergy Name Allergy Type Status Severity Reaction(s) Onset Date Inactive Date Treating Clinician Comments Source Prometha zine Hcl Propensi ty to adverse reaction s to drug Active Other - See comments 08-02 00:00: 00 While being treated for kidney stones with Dilaudid and Phenergan , patient became unrespons aris. Was told that Phenergan was the cause and to avoid it. [facility] PROMETHA ZINE HCL DRUG INGREDI Active Other-Cmnt 08-02 00:00: 00 [facility] Social History Social Habit Start Date Stop Date Quantity Comments Source Sex Assigned At [facility] Exposure to SARS-CoV-2 (event) Not sure [facility] Smoking Status Start Date Stop Date Source Unknown if ever smoked [facility] Medications Ordered Medication Name Filled Medication Name Start Date Stop Date Current Medication? Ordering Clinician Indication Dosage Frequency Signature (SIG) Comments Components Source ondansetron (ZOFRAN (PF)) injection 8 mg 09-12 05:45: 00 09-12 04:54 :00 No 8mg 8 mg, Slow IV Push, ONCE, 1 dose, Wed09/13/19 at 0045[facility] meclizine (TRAVEL-EAS E (MECLIZINE) ) tablet 25 mg 09-12 05:45: 00 09-12 04:55 :00 No 25mg 25 mg, Oral, ONCE, 1 dose, Wed09/13/19 at 0045, [facility] NaCl 0.9% (NS) bolus infusion 1,000 mL 09-12 04:45: 00 09-12 06:39 :00 No 1000mL at 999 mL/hr, 1,000 mL, IV Infusion, ONCE, 1 dose, Wed09/12/19 at 2345, [facility] meclizine 25 mg tablet 09-12 00:00: 00 Yes [id number] 25mg Take 1 tablet by mouth every 6 (six) hours as needed for Dizziness. [facility] ondansetron 4 mg tablet 09-12 00:00: 00 Yes [id number] 8mg Take 2 tablets by mouth every 8 (eight) hours as needed (Dizziness and/or Nausea). [facility] albuterol 90 mcg/actuati on inhaler 09-12 00:00: 00 Yes [id number] 2{puff} Inhale 2 Puffs every 4 (four) hours as needed for Wheezing or Shortness of Breath. [facility] ondansetron (ZOFRAN, HYDROCHLORI DE,) 4 mg tablet 08-02 00:00: 00 Yes 4mg Take 1 tablet by mouth every 8 (eight) hours as needed for Nausea and Vomiting (N/V). [facility] traMADOL (ULTRAM) 50 mg tablet 08-02 00:00: 00 Yes 50mg Take 1 tablet by mouth every 6 (six) hours as needed for Pain unrelieved by non-narcot ic analgesics . [facility] tamsulosin 0.4 mg 24 hr capsule 08-02 00:00: 00 Yes .4mg Take 1 capsule by mouth at bedtime. [facility] ketorolac 10 mg tablet 08-02 00:00: 00 Yes 10mg Take 1 tablet by mouth every 6 (six) hours as needed for Alternate with [place] for pain scale 1-3. [facility] Vital Signs Vital Name Observation Time Observation Value Comments S ource Systolic blood pressure 2019-09-13 06:00:00 147 mm[Hg] [facility] Diastolic blood pressure 2019-09-13 06:00:00 74 mm[Hg] [facility] Heart rate 2019-09-13 06:00:00 74 /min [facility] Respiratory rate 2019-09-13 06:00:00 26 /min [facility] Oxygen saturation in Arterial blood by Pulse oximetry 2019-09-13 06:00:00 98 /min [facility] Body temperature 2019-09-13 04:11:00 36.17 Karishma [facility] Body height 2019-09-13 04:10:00 193 cm [facility] Body weight 2019-09-13 04:10:00 190.057 kg [facility] BMI 2019-09-13 04:10:00 51.00 kg/m2 [facility] Systolic blood pressure 2019-09-13 06:00:00 147 mm[Hg] [facility] Diastolic blood pressure 2019-09-13 06:00:00 74 mm[Hg] [facility] Heart rate 2019-09-13 06:00:00 74 /min [facility] Respiratory rate 2019-09-13 06:00:00 26 /min [facility] Oxygen saturation in Arterial blood by Pulse oximetry 2019-09-13 06:00:00 98 /min [facility] Body temperature 2019-09-13 04:11:00 36.17 Karishma [facility] Body height 2019-09-13 04:10:00 193 cm [facility] Body weight 2019-09-13 04:10:00 190.057 kg [facility] BMI 2019-09-13 04:10:00 51.00 kg/m2 [facility] Procedures Procedure Date / Time Performed Performing Clinician Source LIPASE 2019-09-13 04:55:00 Brie Rahman [facility] TROPONIN I 2019-09-13 04:55:00 Brie Rahman [facility] HEPATIC FUNCTION PANEL (27048) (ALB,T.PRO,BILI T,BU/BC,ALT,AST,ALK PHOS) 2019-09-13 04:55:00 Brie Rahman [facility] BASIC METABOLIC PANEL (NA, K, CL, CO2, GLUCOSE, BUN, CREATININE, CA) 2019-09-13 04:55:00 Brie Rahman [facility] CBC WITH DIFFERENTIAL 2019-09-13 04:55:00 Fernandez Rahman [facility] PROTHROMBIN TIME / INR 2019-09-13 04:55:00 Joce Rahman [facility] ACTIVATED PARTIAL THRMPLAS PAULA 2019-09-13 04:55:00 Brie Rahman [facility] N-TERMINAL PRO-BNP 2019-09-13 04:55:00 Brie Rahman [facility] COVID-19 (ID NOW RAPID TESTING) 2019-09-13 04:55:00 Brie Rahman [facility] EKG-12 LEAD 2019-09-13 04:42:11 Brie Rahman [facility] ASSIGNMENT OF BENEFITS 2019-09-13 03:57:21 Docto r Unassigned, [place] [facility] NOTICE OF PRIVACY PRACTICES 2019-09-13 03:57:04 Doctor Unassigned, [place] [facility] CONSENT/REFUSAL FOR DIAGNOSIS AND TREATMENT 2019-09-13 03:56:48 Doctor Unassigned, [place] [facility] Encounters Start Date/Time End Date/Time Encounter Type Admission Type Attending Clinicians Care Facility Care Department Encounter ID Source 2019-09-12 22:58:32 2019-09-13 01:47:00 Emergency Brie Rahman [facility] [id number] 2019-09-12 22:58:32 2019-09-13 01:47:00 Emergency Brie Rahman [facility] [id number] [facility] 2019-09-12 22:58:32 2019-09-13 01:47:00 Emergency X BRIE RAHMAN [facility] ERT [id number] [facility] Results Test Description Test Time Test Comments Results Result Co mments Source [facility] [id number] 05:26:00* Test Item Value Reference Range Interpretation Comme nts NT-proBNP (test code = 5329073281) 13 pg/mL See_Comment [Automated message] The system which generated this result transmitted reference range: <=125. The reference range was not used to interpret this result as normal/abnormal. EVARISTO (test code = EVARISTO) Biotin has been reported to cause a negative bias, interpret results relative to patient's use of biotin. Lab Interpretation (test code = 21661-4) Normal [facility] (ID NOW RAPID TESTING)2019-09-13 05:19:00* Test Item Value Reference Range Interpretation Comme nts SARS-CoV-2 Rapid ID NOW (test code = 35425-0) Not Detected Not Detected EVARISTO (test code = EVARISTO) ID NOW COVID-19 As say is an isothermal nucleic acid amplification test intended for the qualitative detection of nucleic acid from SARS-CoV-2 viral RNA in nasopharyngeal (ROUST[employer] SUPERVIS[employer]) specimens. It is used under Emergency Use [...] patient testing if clinically indicated. Lab Interpretation (test code = 21900-4) [facility] (NA, K, CL, CO2, GLUCOSE, BUN, CREATININE, CA)2019-09-13 05:17:00* Test Item Value Reference Range Interpretation Comme nts NA (test code = 2175838018) 136 mmol/L 135-145 K (test code = 4832104898) 5.3 mmol/L 3.5-5 H CL (test code = 6022110515) 100 mmol/L 98-108 CO2 TOTAL (test code = 9120992795) 26 mmol/L 23-31 AGAP (test code = 2640585680) 2-16 BUN (test code = 1623497176) 11 mg/dL 7-23 GLUCOSE (test code = 5858744900) 162 mg/dL 70-110 H CREATININE (test code = 6533343370) 1.18 mg/dL 0.6-1.25 CALCIUM (test code = 4303682422) 9.9 mg/dL 8.6-10.6 eGFR Calculation (Non-) (test code = 7207430473) mL/min/1.73m2 eGFR Calculation () (test code = 5007457299) mL/min/1.73m2 EVARISTO (test code = EVARISTO) Association of [...] or abnormalities in imaging tests). Lab Interpretation (test code = 02311-3) Abnormal [facility] (ALB, T.PRO, BILI T, BU/BC, ALT, AST, ALK PHOS)2019-09-13 05:17:00* Test Item Value Reference Range Interpretation Comme nts TOTAL BILI (test code = 1285321641) 0.5 mg/dL 0.1-1.1 BILI UNCON (test code = 3382617327) 0.4 mg/dL 0.1-1.1 BILI CONJ (test code = 4458806566) 0.0 mg/dL 0-0.3 T PROTEIN (test code = 1315996030) 9.2 g/dL 6.3-8.2 H ALBUMIN (test code = 4546923900) 4.9 g/dL 3.5-5 ALK PHOS (test code = 9923417003) 76 U/L 34-122 ALTv (test code = 1742-6) 60 U/L 5-50 H AST(SGOT) (test code = 2614260708) 44 U/L 13-40 H Lab Interpretation (test cod e = 31244-2) Abnormal [facility] CenterLipase [id number] 05:17:00* Test Item Value Reference Range Interpretation Comme nts LIPASE (test code = 6429406063) 48 U/L 0-220 Lab Interpretation (test cod e = 90390-9) Normal [facility] CenteraPTT2020-06-17 05:13:00* Test Item Value Reference Range Interpretation Comme nts APTT Patient (test code = 3173-2) See_Comment [Automated message] The system which generated this result transmitted reference range: 23 - 38 Seconds. The reference range was not used to interpret this result as normal/abnormal. EVARISTO (test code = EVARISTO) The [facility] patient population mean normal value for aPTT is 30 seconds. Lab Interpretation (test code = 61648-4) Normal [facility] CenterProth[facility]bin Time (PT) / [id number] 05:11:00 * Test Item Value Reference Range Interpretation Comme nts PROTIME PATIENT (test code = 5964-2) See_Comment [Automated [employer]] The system which generated this result transmitted reference range: 12.0 - 14.7 Seconds. The reference range was not used to interpret this result as normal/abnormal. INR (test code = 6301-6) Normal INR <1.1; Warfarin Therapeutic range 2.0 to 3.0 or 2.5 to 3.5, depending upon the indications. Lab Interpretation (test code = 06194-6) Normal [facility] CenterCBC WITH [id number] 05:04:00* Test Item Value Reference Range Interpretation Comme [facility] WBC (test code = 6690-2) See_Comment H [Automated messa ge] The system which generated this result transmitted reference range: 4.20 - 10.70 10*3/?L. The reference range was not used to interpret this result as normal/abnormal. RBC (test code = 789-8) See_Comment H [Automated [employer]] The system which generated this result transmitted reference range: 4.26 - 5.52 10*6/?L. The reference range was not used to interpret this result as normal/abnormal. HGB (test code = 718-7) 15.9 g/dL 12.2-16.4 HCT (test code = 4544-3) 47.6 % 38.4-49.3 MCV (test code = 787-2) 85.8 fL 81.7-95.6 MCH (test code = 785-6) 28.6 pg 26.1-32.7 MCHC (test code = 786-4) 33.4 g/dL 31.2-35 RDW-SD (test code = 76280-5) 39.8 fL 38.5-51.6 RDW-CV (test code = 788-0) 12.8 % 12.1-15.4 PLT (test code = 777-3) See_Comment H [Automated messa ge] The system which generated this result transmitted reference range: 150 - 328 10*3/?L. The reference range was not used to interpret this result as normal/abnormal. MPV (test code = 11946-4) 10.3 fL 9.8-13 NRBC/100 WBC (test code = 6960785760) See_Comment [Automated [employer] ssage] The system which generated this result transmitted reference range: 0.0 - 10.0 /100 WBCs. The reference range was not used to interpret this result as normal/abnormal. NRBC x10^3 (test code = 3720511306) <0.01 See_Comment [Automated messa ge] The system which generated this result transmitted reference range: 10*3/?L. The reference range was not used to interpret this result as normal/abnormal. GRAN MAT (NEUT) % (test code = 770-8) 83.5 % IMM GRAN % (test code = 7254896352) 0.90 % LYMPH % (test code = 736-9) 11.4 % MONO % (test code = 5905-5) 3.3 % EOS % (test code = 713-8) 0.6 % BASO % (test code = 706-2) 0.3 % GRAN MAT x10^3(ANC) (test code = 7763883366) 9.73 10*3/uL 1.99-6.95 H IMM GRAN x10^3 (test code = 5580459292) 0.10 10*3/uL 0-0.06 H LYMPH x10^3 (test code = 731-0) 1.33 10*3/uL 1.09-3.23 MONO x10^3 (test code = 742-7) 0.38 10*3/uL 0.36-1.02 EOS x10^3 (test code = 711-2) 0.07 10*3/uL 0.06-0.53 BASO x10^3 (test code = 704-7) 0.04 10*3/uL 0.01-0.09 Lab Interpretation (test code = 87009-6) Abnormal [facility]"
[2024-05-31 07:10] LABS: Specific Gravity 1.012 (1.005-1.030); Sqamous Epithelial <5 /HPF (None Seen); Urine Bacteria None Seen /HPF (<20); Urine Bilirubin NEGATIVE (Negative); Urine Blood Negative (Negative); Urine Clarity Clear (Clear); Urine Color Light-Yellow (Yellow); Urine Culture Reflex Order NOT NEEDED; Urine Glucose NEGATIVE (Negative); Urine Ketones NEGATIVE (Negative); Urine Micro Reflex YN NO BILL MICROSCOPIC; Urine Mucus Slight /HPF (None Seen); Urine Nitrite NEGATIVE (Negative); Urine Protein NEGATIVE (Negative); Urine RBC None Seen /HPF (None Seen); Urine Urobilinogen Normal (Normal); Urine WBC <5 /HPF (<5)
[2024-05-31 07:16] LABS: Absolute Basophils 0.1 K/uL (0-0.5); Absolute Eosinophils 0.4 K/uL (0-0.5); Absolute Lymphocytes (CBC) 3.3 K/uL (0.7-4.9); Absolute Monocytes 0.9 K/uL (0.1-1.3); Absolute Neutrophil 8.7 K/uL (1.8-8.0); Basophils % 0.8 % (0-1.3); Eosinophils % 2.8 % (0-4.4); Hematocrit 43.6 % (39.6-49.0); Hemoglobin 14.7 g/dL (13.6-17.9); Lymphocytes % 24.8 % (15.3-44.8); MCH 28.9 pg (27.0-35.0); MCHC 33.8 g/dL (32.0-36.0); MCV 85.5 fL (80-100); MPV 7.9 fL (7.6-11.3); Monocytes % 6.4 % (3.3-12.3); Neutrophils % 65.2 % (41.7-73.7); Platelets 382 thou/uL (152-406); RBC Red Blood Cell Count 5.11 M/uL (4.33-5.43)
[2024-05-31 07:20] LABS: Anion Gap 9.6 mEq/L (5.0-15.0); Potassium 3.6 mEq/L (3.5-5.1)
[2024-05-31] MEDS ORDERED: CEFTRIAXONE 1000 MG/VIAL ONE (07:51)
[2024-05-31] MEDS ORDERED: ONDANSETRON 4 MG/2 ML VIAL ONE ×2 (07:51→14:40)
[2024-05-31] MEDS ORDERED: TAMSULOSIN 0.4 MG SR CAP ONE (07:52)
[2024-05-31] MEDS ORDERED: NA CHLORIDE 0.9% 50 ML ONE (07:52)
[2024-05-31] MEDS ORDERED: KETOROLAC 30 MG/ML INJ ONE (07:52)
[2024-05-31] MEDS ORDERED: MORPHINE 4 MG/ML SYR ONE (07:52)
[2024-05-31] MEDS ORDERED: NA CHLORIDE 0.9% 1,000 ML ONE (07:52)
[2024-05-31] MEDS ORDERED: HYDROMORPHONE HCL 0.5 MG/0.5 ML INJ ONE ×2 (08:05→10:00)
[2024-05-31] MEDS ORDERED: HYDROMORPHONE HCL 2 MG/ML inj ONE (14:24)
--- NOTE | 2024-05-31 14:28 | RAD REPORT ---
EXAM:Urograph (IVP) HISTORY: ABD PAIN COMPARISON: 12/05/2021 Technique: Antegrade urography following administration of IV contrast. Images obtained at 5, 10, 15, and 20 minutes. IMPRESSION: No renal or ureteral calculi identified. No hydronephrosis. No filling defect identified within eithe r renal collecting system or grossly within the ureters or bladder. Bowel gas pattern is nonobstructive. Cholecystectomy clips in right upper quadrant.
--- NOTE | 2024-05-31 14:36 | ER ---
Nurse's Notes [facility] Name: Dhiraj Peguero Age: 39 yrs Sex: Male : 1985 Arrival Date: 05/31/2024 Time: 06:16 Bed 8 Private MD: Diagnosis: Hydronephrosis with renal and ureteral calculous obstruction-ivp neg;Morbid (severe) obesity due to excess calories;Low back pain Presentation: 05/31 06:50 Chief complaint: Patient states: low back pain history of stones. Coronavirus screen: vc1 Client denies travel out of the [place] in the last 14 days. At this time, the client does not indicate any symptoms associated with coronavirus-19. Ebola Screen: Patient negative for fever greater than or equal to 101.5 degrees Fahrenheit, and additional compatible Ebola Virus Disease symptoms Patient denies exposure to infectious person. Patient denies travel to an Ebola-affected area in the 21 days before illness onset. No symptoms or risks identified at this time. Risk Assessment: Do you want to hurt yourself or someone else? Patient reports no desire to harm self or others. Onset of symptoms is unknown. 06:50 Method Of Arrival: Ambulatory vc1 06:50 Acuity: JUAN DIEGO 3 vc1 06:54 Initial Sepsis Screen: Does the patient meet any 2 criteria? No. Patient's initial vc1 sepsis screen is negative. Does the patient have a suspected source of infection? No. Patient's initial sepsis screen is negative. Historical: - Allergies: 06:49 Phenergan; vc1 - PMHx: 06:49 Kidney stones; sciatica; Sleep Apnea; vc1 - PSHx: 06:49 Cholecystectomy; Appendectomy; vc1 - Immunization history:: Client reports receiving the 2nd dose of the Covid vaccine, Flu vaccine is not up to date. - Infectious Disease History:: Denies. - Social history:: Smoking status: Patient reports the use of cigarette tobacco products, smokes one pack cigarettes per day. - Family history:: not pertinent. Screenin:51 [facility] ED Fall Risk Assessment (Adult) History of falling in the last 3 months, vc1 including since admission No falls in past 3 months (0 pts) Confusion or Disorientation No (0 pts) Intoxicated or Sedated No (0 pts) Impaired Gait No (0 pts) Mobility Assist Device Used No (0 pt) Altered Elimination No (0 pt) Score/Fall Risk Level 0 - 2 = Low Risk Oriented to surroundings, Maintained a safe environment, Educated pt \T\ family on fall prevention, incl call for assistance when getting out of bed. Abuse screen: Denies threats or abuse. Nutritional screening: No deficits noted. Tuberculosis screening: No symptoms or risk factors identified. Assessment: 08:09 General: Appears in no apparent distress. uncomfortable, Behavior is cooperative, ph appropriate for age. Pain: Complains of pain in left mid back Pain radiates to left lower quadrant. Neuro: Level of Consciousness is awake, alert, obeys commands, Oriented to person, place, time, situation. Cardiovascular: Capillary refill < 3 seconds in bilateral fingers Patient's skin is warm and dry. Respiratory: Airway is patent Respiratory effort is even, unlabored, Respiratory pattern is regular, symmetrical. GI: Abdomen is round non-distended, Bowel sounds present X 4 quads. Abd is soft X 4 quads. : Reports inability to void, pain in left flank(s). Derm: Skin is pink, warm \T\ dry. 10:00 Reassessment: Patient appears in no apparent distress at this time. Patient and/or ph family updated on plan of care and expected duration. Pain level reassessed. Patient is alert, oriented x 3, equal unlabored respirations, skin warm/dry/pink. 12:00 Reassessment: Patient appears in no apparent distress at this time. Patient and/or ph family updated on plan of care and expected duration. Pain level reassessed. Patient is alert, oriented x 3, equal unlabored respirations, skin warm/dry/pink. Vital Signs: 06:54 BP 175 / 111; Pulse 97; Resp 20; Pulse Ox 97% ; Weight 191.87 kg; Height 6 ft. 4 in. ; vc1 Pain 10/10; 08:30 BP 158 / 78; Pulse 89; Resp 18; Pulse Ox 95% on R/A; ph 10:00 BP 168 / 98; Pulse 89; Resp 18; Pulse Ox 94% on R/A; ph 11:00 BP 149 / 87; Pulse 86; Resp 18; Pulse Ox 99% on R/A; ph 12:30 BP 189 / 98; Pulse 91; Resp 18; Pulse Ox 98% on R/A; ph 14:00 BP 172 / 86; Pulse 81; Resp 18; Pulse Ox 99% on R/A; ph 15:30 BP 158 / 89; Pulse 85; Resp 18; Temp 97.5; Pulse Ox 99% on R/A; ph 06:54 Body Mass Index 51.49 (191.87 kg, 193.04 cm) vc1 06:54 Pain Scale: Adult vc1 ED Course: 06:19 Patient arrived in ED. gm2 06:50 Triage completed. vc1 06:53 Arm band placed on left wrist. vc1 07:01 Yonathan Ruth MD is Attending Physician. sameer 07:40 Patient placed in an exam room, on a stretcher. ll1 08:09 Gloria Hernández, VAHID is Primary Nurse. ph 08:10 Initial lab(s) drawn, by ED staff, sent to lab. Inserted saline lock: 20 gauge in right ph antecubital area, using aseptic technique. Blood collected. Flushed with 10 mL NS. 13:43 IVP Urograph In Process Unspecified. EDMS 14:30 Patient has correct armband on for positive identification. Bed in low position. Call ph light in reach. Side rails up X 1. Pulse ox on. NIBP on. Door closed. Noise minimized. Warm blanket given. Pillow given. 14:35 Benji Valadez MD is Referral Physician. sameer 15:50 No provider procedures requiring assistance completed. IV discontinued, intact, ph bleeding controlled, No redness/swelling at site. Pressure dressing applied. Administered Medications: 08:10 Drug: NS 0.9% IV 1000 ml IV at 1000 ml once; to be given as a bolus over 60 minutes ph Route: IV; Rate: 1000 ml; Site: right antecubital; 09:30 Follow up: Response: No adverse reaction; IV Status: Completed infusion ph 08:10 Not Given (Other Intervention Used): morphineor iv 4 mg IVP once over 4 mins ph 08:11 Drug: Ketorolac IVP 30 mg IVP once Route: IVP; Site: right antecubital; ph 09:00 Follow up: Response: No adverse reaction ph 08:11 Drug: Ondansetron IVP 4 mg IVP once; over 2 minutes Route: IVP; Site: right antecubital;ph 09:00 Follow up: Response: No adverse reaction ph 08:11 Drug: HYDROmorphone IVP 1 mg IVP once Route: IVP; Site: right antecubital; ph 08:30 Follow up: Response: No adverse reaction; Pain is decreased ph 10:11 Drug: HYDROmorphone IVP 1 mg IVP once Route: IVP; Site: right antecubital; ph 10:30 Follow up: Response: No adverse reaction; Pain is decreased ph 10:13 Drug: Rocephin IV 1 grams IV at per protocol once; Given slow IV push per pharmacy ph instructions Route: IV; Rate: per protocol; Site: right antecubital; 10:30 Follow up: Response: No adverse reaction; IV Status: Completed infusion ph 10:14 Drug: Flomax PO 0.4 mg PO once Route: PO; ph 19:38 Follow up: Response: No adverse reaction ph 14:30 Drug: HYDROmorphone IVP 1 mg IVP once Route: IVP; Site: right antecubital; ph 14:45 Follow up: Response: No adverse reaction; Pain is decreased ph 14:30 Drug: Ondansetron IVP 4 mg IVP once; over 2 minutes Route: IVP; Site: right antecubital;ph 14:46 Follow up: Response: No adverse reaction ph Medication: 06:54 VIS not applicable for this client. vc1 Outcome: 14:35 Discharge ordered by . sameer 15:51 Patient left the ED. 1 15:51 Discharged to home ambulatory, ph 15:51 Condition: good 15:51 Discharge instructions given to patient, Instructed on discharge instructions, follow up and referral plans. medication usage, Demonstrated understanding of instructions, follow-up care, medications, Prescriptions given X 3, Signatures: Dispatcher [employer] Yonathan Victor MD MD cha Hall, Patricia RN RN ph Vicente Cadena RN RN ll1 Alicia Walsh RN RN 1 Kya Vela 2
--- NOTE | 2024-05-31 14:36 | EDPHYS ---
Physician Documentation [facility] Name: Dhiraj Peguero Age: 39 yrs Sex: Male : 1985 Arrival Date: 05/31/2024 Time: 06:16 Bed 8 Private MD: ED Physician Yonathan Ruth HPI: 05/31 07:40 This 39 yrs old Male presents to ER via Ambulatory with complaints of sameer Possible Kidney Stone, Back Pain. 07:40 The patient presents with pain that is acute. The symptoms are located in the low back, sameer left low back and left mid back. Onset: The symptoms/episode began/occurred 1 day(s) ago. The pain radiates to the left low back and left mid back. Associated signs and symptoms: The patient has no apparent associated signs or symptoms. The problem was sustained from unknown cause. Severity of symptoms: At their worst the symptoms were moderate, severe, in the emergency department the symptoms are unchanged. The patient has experienced similar episodes in the past, multiple times. Historical: - Allergies: 06:49 Phenergan; vc1 - PMHx: 06:49 Kidney stones; sciatica; Sleep Apnea; vc1 - PSHx: 06:49 Cholecystectomy; Appendectomy; vc1 - Immunization history:: Client reports receiving the 2nd dose of the Covid vaccine, Flu vaccine is not up to date. - Infectious Disease History:: Denies. - Social history:: Smoking status: Patient reports the use of cigarette tobacco products, smokes one pack cigarettes per day. - Family history:: not pertinent. ROS: 07:40 Constitutional: Negative for fever, chills, and weight loss, Eyes: Negative for injury, sameer pain, redness, and discharge, ENT: Negative for injury, pain, and discharge, Neck: Negative for injury, pain, and swelling, Cardiovascular: Negative for chest pain, palpitations, and edema, Respiratory: Negative for shortness of breath, cough, wheezing, and pleuritic chest pain, Back: Negative for injury and pain, : Negative for injury, bleeding, discharge, and swelling, MS/Extremity: Negative for injury and deformity, Skin: Negative for injury, rash, and discoloration, Neuro: Negative for headache, weakness, numbness, tingling, and seizure, Psych: Negative for depression, anxiety, suicide ideation, homicidal ideation, and hallucinations, Allergy/Immunology: Negative for hives, rash, and allergies, Endocrine: Negative for neck swelling, polydipsia, polyuria, polyphagia, and marked weight changes, Hematologic/Lymphatic: Negative for swollen nodes, abnormal bleeding, and unusual bruising, 07:40 Abdomen/GI: Positive for abdominal pain, abdominal cramps, abdominal distension, of the anterior aspect of left lateral abdomen, posterior aspect of left lateral abdomen and left lower quadrant, Exam: 07:40 Constitutional: This is a well developed, well nourished patient who is awake, alert, sameer and in no acute distress. Head/Face: Normocephalic, atraumatic. Eyes: Pupils equal round and reactive to light, extra-ocular motions intact. Lids and lashes normal. Conjunctiva and sclera are non-icteric and not injected. Cornea within normal limits. Periorbital areas with no swelling, redness, or edema. ENT: Nares patent. No nasal discharge, no septal abnormalities noted. Tympanic membranes are normal and external auditory canals are clear. Oropharynx with no redness, swelling, or masses, exudates, or evidence of obstruction, uvula midline. Mucous membranes moist. Neck: Trachea midline, no thyromegaly or masses palpated, and no cervical lymphadenopathy. Supple, full range of motion without nuchal rigidity, or vertebral point tenderness. No Meningismus. Chest/axilla: Normal chest wall appearance and motion. Nontender with no deformity. No lesions are appreciated. Cardiovascular: Regular rate and rhythm with a normal S1 and S2. No gallops, murmurs, or rubs. Normal PMI, no JVD. No pulse deficits. Respiratory: Lungs have equal breath sounds bilaterally, clear to auscultation and percussion. No rales, rhonchi or wheezes noted. No increased work of breathing, no retractions or nasal flaring. Back: No spinal tenderness. No costovertebral tenderness. Full range of motion. Male : Normal genitalia with no discharge or lesions. Skin: Warm, dry with normal turgor. Normal color with no rashes, no lesions, and no evidence of cellulitis. MS/ Extremity: Pulses equal, no cyanosis. Neurovascular intact. Full, normal range of motion., bilateral aka Neuro: Awake and alert, GCS 15, oriented to person, place, time, and situation. Cranial nerves II-XII grossly intact. Motor strength 5/5 in all extremities. Sensory grossly intact. Cerebellar exam normal. Normal gait. Psych: Awake, alert, with orientation to person, place and time. Behavior, mood, and affect are within normal limits. 07:40 Abdomen/GI: Inspection: abdomen appears normal, Bowel sounds: normal, Palpation: severe abdominal tenderness, Liver: no appreciated palpable abnormalities, Hernia: not appreciated, 14:10 : CVA tenderness, is absent, Male external genitalia: normal, Circumcision noted. sameer Bladder: is normal, Sexual behavior: the patient is sexually active, Vital Signs: 06:54 BP 175 / 111; Pulse 97; Resp 20; Pulse Ox 97% ; Weight 191.87 kg; Height 6 ft. 4 in. ; vc1 Pain 10/10; 08:30 BP 158 / 78; Pulse 89; Resp 18; Pulse Ox 95% on R/A; ph 10:00 BP 168 / 98; Pulse 89; Resp 18; Pulse Ox 94% on R/A; ph 11:00 BP 149 / 87; Pulse 86; Resp 18; Pulse Ox 99% on R/A; ph 12:30 BP 189 / 98; Pulse 91; Resp 18; Pulse Ox 98% on R/A; ph 14:00 BP 172 / 86; Pulse 81; Resp 18; Pulse Ox 99% on R/A; ph 15:30 BP 158 / 89; Pulse 85; Resp 18; Temp 97.5; Pulse Ox 99% on R/A; ph 06:54 Body Mass Index 51.49 (191.87 kg, 193.04 cm) vc1 06:54 Pain Scale: Adult vc1 MDM: 07:01 Medical Screening Exam initiated sameer 07:43 Differential diagnosis: Cholelithiasis chronic back pain, Obesity Pyelonephritis Renal sameer Infarction ruptured disc, sickle cell crisis, sprain, Ureterolithiasis. Data reviewed: vital signs, nurses notes, lab test result(s), radiologic studies, plain films. Consideration of Admission/Observation Escalation of care including admission/observation considered. I considered the following discharge prescriptions or medication management in the emergency department Medications were administered in the Emergency Department. See MAR. Independent interpretation of the following test(s) in the Emergency Department CT Scan: My interpretation is ct stone. Test considered but Not performed: Ultrasound renal usg. Historians other than the Patient: pt well informed. Care significantly affected by the following chronic conditions: Obesity, sciatica, kidney stone, apnea. Counseling: I had a detailed discussion with the patient and/or guardian regarding the historical points, exam findings, and any diagnostic results supporting the discharge/admit diagnosis, lab results, radiology results, the need for outpatient follow up, a urologist. 05/31 06:40 Order name: Urine W/Microscopic (UAM); Complete Time: 09:35 [facility] 05/31 06:40 Order name: CBC with Diff; Complete Time: 09:35 vc1 05/31 06:40 Order name: BMP; Complete Time: 09:35 1 05/31 09:41 Order name: IVP Urograph; Complete Time: 14:34 bd Administered Medications: 08:10 Drug: NS 0.9% IV 1000 ml IV at 1000 ml once; to be given as a bolus over 60 minutes ph Route: IV; Rate: 1000 ml; Site: right antecubital; 09:30 Follow up: Response: No adverse reaction; IV Status: Completed infusion ph 08:10 Not Given (Other Intervention Used): morphineor iv 4 mg IVP once over 4 mins ph 08:11 Drug: Ketorolac IVP 30 mg IVP once Route: IVP; Site: right antecubital; ph 09:00 Follow up: Response: No adverse reaction ph 08:11 Drug: Ondansetron IVP 4 mg IVP once; over 2 minutes Route: IVP; Site: right antecubital;ph 09:00 Follow up: Response: No adverse reaction ph 08:11 Drug: HYDROmorphone IVP 1 mg IVP once Route: IVP; Site: right antecubital; ph 08:30 Follow up: Response: No adverse reaction; Pain is decreased ph 10:11 Drug: HYDROmorphone IVP 1 mg IVP once Route: IVP; Site: right antecubital; ph 10:30 Follow up: Response: No adverse reaction; Pain is decreased ph 10:13 Drug: Rocephin IV 1 grams IV at per protocol once; Given slow IV push per pharmacy ph instructions Route: IV; Rate: per protocol; Site: right antecubital; 10:30 Follow up: Response: No adverse reaction; IV Status: Completed infusion ph 10:14 Drug: Flomax PO 0.4 mg PO once Route: PO; ph 19:38 Follow up: Response: No adverse reaction ph 14:30 Drug: HYDROmorphone IVP 1 mg IVP once Route: IVP; Site: right antecubital; ph 14:45 Follow up: Response: No adverse reaction; Pain is decreased ph 14:30 Drug: Ondansetron IVP 4 mg IVP once; over 2 minutes Route: IVP; Site: right antecubital;ph 14:46 Follow up: Response: No adverse reaction ph Disposition Summary: 05/31/24 14:35 Discharge Ordered Notes: Location: Home sameer Problem: new sameer Symptoms: have improved sameer Condition: Stable sameer Diagnosis - Hydronephrosis with renal and ureteral calculous obstruction - ivp neg sameer - Morbid (severe) obesity due to excess calories sameer - Low back pain sameer Followup: sameer - With: Private Physician - When: 2 - 3 days - Reason: Recheck today's complaints, Continuance of care, Re-evaluation by your physician Followup: sameer - With: Benji Valadez MD - When: 2 - 3 days - Reason: Recheck today's complaints, Re-evaluation by your physician Discharge Instructions: - Discharge Summary Sheet sameer - Acute Back Pain, Adult sameer - Kidney Stones sameer - Obesity, Adult sameer - Kidney Stones, [id number] sameer - Hydronephrosis sameer - Intravenous Pyelogram sameer - Dietary Guidelines to Help Prevent Kidney Stones sameer - Intravenous Pyelogram, [id number] [facility] Forms: - Medication Reconciliation Form sameer - Antibiotic Education sameer - Prescription Opioid Use sameer - Patient Portal Instructions sameer - Leadership Thank You Letter [facility] Prescriptions: - Flomax 0.4 mg Oral capsule - take 1 capsule ORAL route once; 30 capsule; Refills: 0, Product Selection sameer Permitted - ketorolac 10 mg Oral tablet - take 1 tablet ORAL route every 6 hours for 3 days prn pain; 12 tablet; Refills: sameer 0, Product Selection Permitted - Cipro 500 mg Oral Tablet - take 1 tablet ORAL route every 12 hours for 7 days; 14 tablet; Refills: 0, [facility] Product Selection Permitted - Tramadol 50 mg Oral tablet - take 1 tablet ORAL route every 8 hours as needed; 26 tablet; Refills: 0, [facility] Product Selection Permitted Signatures: Dispatcher [employer] Yonathan Victor MD MD cha Hall, Patricia, RN RN ph Jillian, VAHID Vargas RN vc1 Corrections: (The following items were deleted from the chart) 06:56 06:40 Stone Protocol+[id number].[id number] ordered. EDMS EDMS
[2024-05-31 15:55] VITALS: BP 175/111; O2SAT 97
== END 2024-05-31 15:51 | disposition home or self-care (01) ==
LOC: ER 06:16
DX: N13.2 Hydronephrosis with renal and ureteral calculous obstruction (principal); E66.01 Morbid (severe) obesity due to excess calories; F17.210 Nicotine dependence, cigarettes, uncomplicated; Z87.442 Personal history of urinary calculi
CPT/HCPCS: 85025; 81001; 80048; 36415; 74400; Q9967; J1171 ×3; J2405 ×2; J7030; J0696